=== PATIENT | male | born 1955 | race Two or more races ===

== ENCOUNTER 2025-05-21 10:28 | Emergency (ER) | payer SELFPAY ==
--- NOTE | ~2025-05-21 | XR_ITS ---
XR chest 2V Ordering provider: Baltazar Joseph MD History: 69 years Male with . CP . Comparison: None. FINDINGS: MEDIASTINUM: The cardiac silhouette is slightly enlarged. LUNGS: No infiltrates, effusions or pneumothorax. OTHER: No free air under the diaphragm. IMPRESSION: No acute cardiopulmonary pathology. Reviewed, dictated and finalized at location A.
[2025-05-21 10:28] VITALS: BP 149/58; PULSE 70; RESP 18; TEMP 36.6; O2SAT 97
--- NOTE | 2025-05-21 10:33 | ECG_ITS ---
Test Date: 2025-05-21 10:32:19 Measurements Intervals [place] Rate: 68 P: -9 LA: 162 QRS: 24 QRSD: 157 T: 42 QT: 443 QTc: 474 Interpretive Statements SINUS RHYTHM RIGHT BUNDLE BRANCH BLOCK BASELINE ARTIFACT- III, ABNORMAL ECG No previous ECG available for comparison Electronically Signed On 05-21-2025 12:34:37 CDT by Yoni Fang D.O.
[2025-05-21 10:34] VITALS: PULSE 69
[2025-05-21 10:50] LABS: Basophils Percent Auto 0.6 % (0.2-1.2); Eosinophils Absolute Auto 0.2 K/mm3 (0-0.3); Eosinophils Percent Auto 3.2 % (0-4.4); Hematocrit 27.6 % (42.0-52.0); Hemoglobin 8.9 g/dL (14.0-18.0); Immature Granulocyte Absolute 0.04 K/mm3 (0.00-0.031); Immature Granulocyte Percent A 0.6 % (0-0.5); Lymphocytes Absolute Auto 0.61 K/mm3 (0.9-3.2); Lymphocytes Percent Auto 8.4 % (18.3-44.2); Mean Corpuscular HGB Conc 32.2 g/dl (32-36); Mean Corpuscular Volume 96.2 fl (80-100); Mean Platelet Volume 10.5 fl (7.4-10.4); Monocytes Absolute Auto 0.5 K/mm3 (0.1-0.6); Monocytes Percent Auto 6.6 % (2.6-8.5); Neutrophils Absolute Auto 5.9 K/mm3 (1.3-6.7); Neutrophils Percent Auto 80.6 % (45.5-73.1); Platelet Count Result 275 k/mm3 (150-375); Red Blood Count 2.87 M/mm3 (4.6-6.20); Red Cell Distribution Width 14.6 % (11.5-14.5); White Blood Count 7.3 K/mm3 (4.5-10.0)
[2025-05-21 10:59] LABS: Alanine Aminotransferase 19 U/L (6-50); Albumin Level 4.1 g/dL (3.5-5.1); Alkaline Phosphatase 111 U/L (38-126); Anion Gap 13 mmol/L (4-12); Aspartate Amino Transferase 28 U/L (17-59); Bilirubin,Total 0.3 mg/dL (0.2-1.3); Blood Urea Nitrogen 35 mg/dL (9-20); Calcium 8.3 mg/dL (8.4-10.2); Carbon Dioxide 30 mmol/L (22-30); Chloride 94 mmol/L (98-107); Estimated CRCL calculation 13 ml/min; Estimated Glomerular Filt Rate 14; Glucose 200 mg/dL (65-110); Lipase 319 U/L (23-300); Potassium 4.1 mmol/L (3.4-5.0); Sodium 137 mmol/L (137-145); Total Protein 7.4 g/dL (6.3-8.2)
[2025-05-21 11:00] LABS: Prothrombin Time 12.9 Seconds (11.1-14.7)
[2025-05-21 11:11] LABS: Troponin I < 0.012 ng/mL (0.000-0.034)
[2025-05-21 11:51] VITALS: BP 153/62; PULSE 64; RESP 19; O2SAT 100
--- NOTE | 2025-05-21 12:29 | ED_ITS ---
HPI - General Adult General Chief complaint: Chest Pain Stated complaint: CP, ?anxiety Time Seen by Provider: 05/21/25 10:29 History of Present Illness HPI narrative: Patient is a 69-year-old male who presents ER with reports of sore throat and possible chest discomfort after having his dialysis treatment. Reports this happens to him on occasion but he has had no major issues. No history of DE. Related Data Allergies Allergy/AdvReac Type Severity Reaction Status Date / Time No Known Allergies Allergy Verified 05/21/25 10:35 Review of Systems 2 Review of Systems: All systems reviewed & are unremarkable except as noted in HPI and below Constitutional: Constitutional: Reports no additional constitutional complaints Cardiovascular: Cardiovascular: Reports no additional cardiovascular complaints Respiratory: Respiratory: Reports no additional respiratory complaints Gastrointestinal: Gastrointestinal: Reports no additional gastrointestinal complaints [facility] Past Medical History Medical History (Updated 05/21/25 @ 15:11 by Baltazar Joseph MD) Diabetes Hyperlipidemia Hypertension End stage renal disease Exam 2 Narrative: GENERAL: Chronically ill-appearing, well-nourished, and in no acute distress. HEAD: Normocephalic, atraumatic. ENT: Mucous membranes moist. NECK: Supple. CHEST: Clear to auscultation. No respiratory distress. HEART: Regular rate and rhythm. Normal peripheral pulses. ABDOMEN: Soft, nontender, nondistended. EXTREMITIES: Normal range of motion. SKIN: Warm, dry, no rash. NEURO: Alert and oriented x3. PSYCH: Normal mood and affect. Course Course Emergency Course: Patient resting comfortably. No chest pain here. [place] that have had an anxiety attack which happens with him on occasion. Appropriate discharge back to his facility. Vital Signs Vital signs: Vital Signs Temperature 97.8 F 05/21/25 10:28 Pulse Rate 70 05/21/25 10:28 Respiratory Rate 18 05/21/25 10:28 Blood Pressure 149/58 H 05/21/25 10:28 Pulse Oximetry 97 05/21/25 10:28 Oxygen Delivery Room Air 05/21/25 10:28 Temperature 97.8 F 05/21/25 10:28 Pulse Rate 66 05/21/25 14:12 Respiratory Rate 16 05/21/25 14:12 Blood Pressure 167/62 H 05/21/25 14:12 Pulse Oximetry 97 05/21/25 14:12 Oxygen Delivery Room Air 05/21/25 10:28 Medical Decision Making Vital Signs Vital Signs: Vital Signs Temperature 97.8 F 05/21/25 10:28 Pulse Rate 70 05/21/25 10:28 Respiratory Rate 18 05/21/25 10:28 Blood Pressure 149/58 H 05/21/25 10:28 Pulse Oximetry 97 05/21/25 10:28 Oxygen Delivery Room Air 05/21/25 10:28 Temperature 97.8 F 05/21/25 10:28 Pulse Rate 66 05/21/25 14:12 Respiratory Rate 16 05/21/25 14:12 Blood Pressure 167/62 H 05/21/25 14:12 Pulse Oximetry 97 05/21/25 14:12 Oxygen Delivery Room Air 05/21/25 10:28 Lab Data 05/21/25 10:44 05/21/25 10:44 Labs: Lab Results 05/21/25 05/21/25 Range/Units 10:44 14:14 WBC 7.3 (4.5-10.0) K/mm3 RBC 2.87 L (4.6-6.20) M/mm3 Hgb 8.9 L (14.0-18.0) g/dL Hct 27.6 L (42.0-52.0) % MCV 96.2 (80-100) fl MCH 31.0 (26-34) pg MCHC 32.2 (32-36) g/dl RDW 14.6 H (11.5-14.5) % Plt Count 275 (150-375) k/mm3 MPV 10.5 H (7.4-10.4) fl Immature Gran % (Auto) 0.6 H (0-0.5) % Neut % (Auto) 80.6 H (45.5-73.1) % Lymph % (Auto) 8.4 L (18.3-44.2) % [place] % (Auto) 6.6 (2.6-8.5) % Eos % (Auto) 3.2 (0-4.4) % Baso % (Auto) 0.6 (0.2-1.2) % Lymph # (Auto) 0.61 L (0.9-3.2) K/mm3 [place] # (Auto) 0.5 (0.1-0.6) K/mm3 Eos # (Auto) 0.2 (0-0.3) K/mm3 Baso # (Auto) 0.0 (0.0-0.1) K/mm3 Abs Immat Gran (auto) 0.04 H (0.00-0.031) K/mm3 Absolute Neuts (auto) 5.9 (1.3-6.7) K/mm3 Absolute Nucleated RBC 0.000 (0.0-0.012) K/mm3 Nucleated RBC % 0.0 (0.0-0.2) % PT 12.9 (11.1-14.7) Seconds INR 1.0 APTT 25.0 (22.3-36.8) Seconds Sodium 137 (137-145) mmol/L Potassium 4.1 (3.4-5.0) mmol/L Chloride 94 L (98-107) mmol/L Carbon Dioxide 30 (22-30) mmol/L Anion Gap 13 H (4-12) mmol/L BUN 35 H (9-20) mg/dL Creatinine 4.30 H (0.7-1.3) mg/dL Estim Creat Clear Calc 13 ml/min Estimated GFR 14 L (59 - ) Glucose 200 H (65-110) mg/dL Calcium 8.3 L (8.4-10.2) mg/dL Total Bilirubin 0.3 (0.2-1.3) mg/dL AST 28 (17-59) U/L ALT 19 (6-50) U/L Alkaline Phosphatase 111 (38-126) U/L Troponin I < 0.012 0.014 (0.000-0.034) ng/mL Total Protein 7.4 (6.3-8.2) g/dL Albumin 4.1 (3.5-5.1) g/dL Lipase 319 H (23-300) U/L Imaging Data Radiologist's impression: ITS Impressions Chest X-Ray 05/21/25 10:59 IMPRESSION: No acute cardiopulmonary pathology. ECG Data EKG #1: ECG completion date: 05/21/25 ECG completion time: 10:32 EKG Interpretation: normal rate (68), sinus rhythm and RBBB Discharge Plan Discharge Clinical Impression: Anxiety Patient Disposition: Home Condition: Stable Instructions: Anxiety (ED) Additional Instructions: Please return to the emergency department if you develop severe and persistent chest pain, difficulty breathing, dizziness, leg swelling or if you are coughing up blood as these can be signs of a medical emergency. Please call your doctor for a follow up appointment to determine the need for further testing. Patient Language: Indian Follow-up/Referrals: Brianne,MD Pee [Primary Care Provider] - 1 Week
--- NOTE | 2025-05-21 13:49 | ECG_ITS ---
Test Date: 2025-05-21 13:56:17 Measurements Intervals [place] Rate: 65 P: 18 [place]: 215 QRS: 15 QRSD: 141 T: 42 QT: 445 QTc: 463 Interpretive Statements SINUS RHYTHM WITH FIRST DEGREE AV BLOCK RIGHT BUNDLE BRANCH BLOCK BASELINE ARTIFACT- I, II, AVR, ABNORMAL ECG Compared to ECG 05/21/2025 10:32:19 First degree AV block now present Electronically Signed On 05-21-2025 14:31:46 CDT by Yoni Fang D.O.
[2025-05-21 14:12] VITALS: BP 167/62; PULSE 66; RESP 16; O2SAT 97
[2025-05-21 14:40] LABS: Troponin I 0.014 ng/mL (0.000-0.034)
[2025-05-21 15:37] VITALS: BP 144/88; PULSE 68; RESP 16; O2SAT 99
== END 2025-05-21 15:39 ==
PROVIDERS: Emergency Provider Emergency Medicine; PCP Internal Medicine
DX: F41.9 Anxiety disorder, unspecified (principal); E11.22 Type 2 diabetes mellitus with diabetic chronic kidney disease; I12.0 Hypertensive chronic kidney disease with stage 5 chronic kidney disease or end stage renal disease; N18.6 End stage renal disease; Z99.2 Dependence on renal dialysis; I44.0 Atrioventricular block, first degree; I45.10 Unspecified right bundle-branch block
CPT/HCPCS: 36415; 71046; 80053; 83690; 84484; 85025; 85610; 85730; 93005; 99284

== ENCOUNTER 2025-08-18 07:36 | Emergency (ER) | payer SELFPAY ==
[2025-08-18] VITALS (8 sets, daily range): BP systolic 190–215; BP diastolic 75–76; PULSE 66–83; RESP 10–19; TEMP 36.4; O2SAT 96–100
--- NOTE | ~2025-08-18 | CT_ITS ---
CT HEAD NON-CONTRAST Clinical History: fall x yesterday evening, ams Comparison: None Technique: Unenhanced axial images skull base to vertex Coronal, sagittal reformats CT images acquired with automatic exposure control for dose reduction DLP: 605 mGy-cm Findings: Global atrophy. White matter changes typically chronic microvascular ischemic disease. Sulci, ventricles: Unremarkable. No intracerebral hemorrhage. No evidence acute territorial infarct. No mass effect, midline shift. Bony calvarium intact. Visualized paranasal sinuses: Clear. Mastoid air cells: Clear. IMPRESSION: 1. No acute intracranial findings. Reviewed, dictated and finalized at location R.
--- NOTE | ~2025-08-18 | XR_ITS ---
Examination: XR chest 1V Clinical History: AMS Comparison: 05/21/2025 Technique: Portable AP Findings: Heart size upper limit of normal. Lungs clear. Persistent small linear atelectasis and/or scarring right perihilar. No acute bony abnormality. IMPRESSION: 1. No acute cardiopulmonary findings given portable technique. Reviewed, dictated and finalized at location R.
--- NOTE | 2025-08-18 07:45 | ECG_ITS ---
Test Date: 2025-08-18 08:07:18 Measurements Intervals [place] Rate: 70 P: 55 NC: 209 QRS: 22 QRSD: 142 T: 27 QT: 455 QTc: 493 Interpretive Statements SINUS RHYTHM WITH FIRST-DEGREE AV BLOCK OCCASIONAL SUPRAVENTRICULAR PREMATURE COMPLEXES RIGHT BUNDLE BRANCH BLOCK [120+ ms QRS DURATION, UPRIGHT V1, 40+ ms S IN I/aVL/V4/V5/V6] Compared to ECG 05/21/2025 13:56:17 NO SIGNIFICANT CHANGES Electronically Signed On 08-18-2025 14:27:20 CDT by Shahid Pires M.D.
--- NOTE | 2025-08-18 07:58 | ED_ITS ---
HPI - General Adult General Chief complaint: Altered Mental Status Stated complaint: AMS Time Seen by Provider: 08/18/25 07:38 History of Present Illness HPI narrative: The patient is a 70-year-old male with history of dementia who presents ER with increased confusion. half-way reports he is typically oriented x3. He is currently oriented to self. Patient missed dialysis on 08/15/2025 for unknown reasons. Patient provides no history. He is in no distress and has no complaints. Related Data Allergies Allergy/AdvReac Type Severity Reaction Status Date / Time No Known Allergies Allergy Verified 05/21/25 10:35 Review of Systems 2 Review of Systems: ROS unobtainable: Yes unobtainable due to mental status PMFSH Past Medical History Medical History (Updated 08/18/25 @ 09:56 by Baltazar Joseph MD) Diabetes Hyperlipidemia Hypertension End stage renal disease Exam 2 Narrative: GENERAL: Well-appearing, well-nourished, and in no acute distress. HEAD: Normocephalic, atraumatic. ENT: Mucous membranes moist. CHEST: Clear to auscultation. No respiratory distress. HEART: Regular rate and rhythm. Normal peripheral pulses. ABDOMEN: Soft, nontender, nondistended. EXTREMITIES: Normal range of motion. No edema. SKIN: Warm, dry, no rash. NEURO: Alert and oriented x1. Course Course Emergency Course: No acute intracranial injury. Creatinine elevated due to lack of dialysis. No electrolyte abnormality. Patient given home metoprolol and hydralazine for hypertensive management. Vital Signs Vital signs: Vital Signs Temperature 97.5 F L 08/18/25 07:36 Pulse Rate 83 08/18/25 07:36 Respiratory Rate 10 L 08/18/25 07:36 Blood Pressure 215/75 H 08/18/25 07:36 Pulse Oximetry 96 08/18/25 07:36 Temperature 97.5 F L 08/18/25 07:36 Pulse Rate 68 08/18/25 08:00 Respiratory Rate 10 L 08/18/25 07:36 Blood Pressure 215/75 H 08/18/25 07:36 Pulse Oximetry 96 08/18/25 07:36 Oxygen Delivery Room Air 08/18/25 08:15 Medical Decision Making Vital Signs Vital Signs: Vital Signs Temperature 97.5 F L 08/18/25 07:36 Pulse Rate 83 08/18/25 07:36 Respiratory Rate 10 L 08/18/25 07:36 Blood Pressure 215/75 H 08/18/25 07:36 Pulse Oximetry 96 08/18/25 07:36 Temperature 97.5 F L 08/18/25 07:36 Pulse Rate 68 08/18/25 08:00 Respiratory Rate 10 L 08/18/25 07:36 Blood Pressure 215/75 H 08/18/25 07:36 Pulse Oximetry 96 08/18/25 07:36 Oxygen Delivery Room Air 08/18/25 08:15 Lab Data 08/18/25 08:19 08/18/25 08:19 Labs: Lab Results 08/18/25 08/18/25 Range/Units 08:18 08:19 WBC 7.9 (4.5-10.0) K/mm3 RBC 3.49 L (4.6-6.20) M/mm3 Hgb 10.4 L (14.0-18.0) g/dL Hct 33.3 L (42.0-52.0) % MCV 95.4 (80-100) fl MCH 29.8 (26-34) pg MCHC 31.2 L (32-36) g/dl RDW 14.8 H (11.5-14.5) % Plt Count 194 (150-375) k/mm3 MPV 11.6 H (7.4-10.4) fl Immature Gran % (Auto) 1.3 H (0-0.5) % Neut % (Auto) 77.4 H (45.5-73.1) % Lymph % (Auto) 13.3 L (18.3-44.2) % [place] % (Auto) 4.9 (2.6-8.5) % Eos % (Auto) 2.5 (0-4.4) % Baso % (Auto) 0.6 (0.2-1.2) % Lymph # (Auto) 1.05 (0.9-3.2) K/mm3 [place] # (Auto) 0.4 (0.1-0.6) K/mm3 Eos # (Auto) 0.2 (0-0.3) K/mm3 Baso # (Auto) 0.1 (0.0-0.1) K/mm3 Abs Immat Gran (auto) 0.10 H (0.00-0.031) K/mm3 Absolute Neuts (auto) 6.1 (1.3-6.7) K/mm3 Absolute Nucleated RBC 0.000 (0.0-0.012) K/mm3 Nucleated RBC % 0.0 (0.0-0.2) % % Immature Plt Fraction 6.6 (0.9-11.2) % PT 13.7 (11.1-14.7) Seconds INR 1.0 APTT 22.4 (22.3-36.8) Seconds Sodium 138 (137-145) mmol/L Potassium 4.1 (3.4-5.0) mmol/L Chloride 100 (98-107) mmol/L Carbon Dioxide 25 (22-30) mmol/L Anion Gap 13 H (4-12) mmol/L BUN 34 H (9-20) mg/dL Creatinine 10.71 H (0.7-1.3) mg/dL Estim Creat Clear Calc 5 ml/min Estimated GFR 5 L (59 - ) Glucose 87 (65-110) mg/dL POC Capillary Glucose 84 (65-105) mg/dl Calcium 9.3 (8.4-10.2) mg/dL Total Bilirubin 0.8 (0.2-1.3) mg/dL AST 21 (17-59) U/L ALT 11 (6-50) U/L Alkaline Phosphatase 109 (38-126) U/L Troponin I 0.023 (0.000-0.034) ng/mL Total Protein 7.8 (6.3-8.2) g/dL Albumin 4.4 (3.5-5.1) g/dL Discharge Plan Discharge Clinical Impression: Accident due to mechanical fall without injury, Chronic hypertension Patient Disposition: Home Condition: Stable Instructions: General Patient Instructions, Fall Prevention for Older Adults (ED) Additional Instructions: Return ER if you suffered a new injury, you have new chest pain or shortness of breath, you have additional concerns. Patient Language: Mongolian Follow-up/Referrals: Brianne,MD Pee [Primary Care Provider, Unknown] - 1 Week
--- OUTSIDE RECORDS SUMMARY | 2025-08-18 08:17 | XMS_ITS | Clinical Summary ---
Author Organization [facility] Address [address] [place] [address] Care Team Providers Care Felting Machine Operator Helper Name Role Phone Unknown, Notinfile Primary Care Provider Unavail able Allergies No known active allergies Medications amLODIPine (NORVASC) 10 mg tablet Take 1 tablet (10 mg total) by mouth as directed Monday, , Monday, Monday Active aspirin 81 mg enteric coated tablet Take 1 tablet (81 mg total) by mouth daily 05/25/20 13 Active cholecalciferol (VITAMIN D-3) 50,000 unit capsule Take 1 capsule (50,000 Units total) by mouth once a week Sundays 0 02/11/20 24 Active famotidine (PEPCID) 20 mg tablet Take 1 tablet (20 mg total) by mouth with lunch 0 02/04/20 24 Active gabapentin (NEURONTIN) 100 mg capsule Take 1 capsule (100 mg total) by mouth 3 (three) times a day 01/12/20 21 Active Baqsimi 3 mg/actuation spray,non-aerosol Administer 1 spray into one nostril as needed 0 01/02/20 24 Active LANTUS 100 unit/mL (3 mL) pen for injection Inject 20 Units under the skin 2 (two) times a day 0 01/22/20 24 Active levETIRAcetam (KEPPRA) 500 mg tablet Take 1 tablet (500 mg total) by mouth daily Active meclizine (ANTIVERT) 25 mg tablet Take 0.5 tablets (12.5 mg total) by mouth 2 (two) times a day 05/25/20 13 Active methIMAzole (TAPAZOLE) 5 mg tablet Take 1 tablet (5 mg total) by mouth daily 0 01/23/20 24 Active ondansetron ODT (ZOFRAN-ODT) 4 mg disintegrating tablet Take 1 tablet (4 mg total) by mouth every 4 (four) hours as needed for nausea 12/13/19 17 Active sevelamer (RENVELA) 800 mg tablet 1 tablet (800 mg total) 3 (three) times a day with meals 0 02/11/20 24 Active thiamine (VITAMIN B-1) 50 mg tablet Take 2 tablets (100 mg total) by mouth daily Active bisacodyL (DULCOLAX) 10 mg suppositoryIndicat ions:constipation Insert 1 suppository (10 mg total) into the rectum daily as needed for constipation Active busPIRone (BUSPAR) 5 mg tabletIndications: Generalized Anxiety Disorder Take 1 tablet (5 mg total) by mouth 3 (three) times a day Active fluticasone propionate (FLONASE) 50 mcg/actuation nasal spray Administer 1 spray into each nostril daily Active midodrine (PROAMATINE) 10 mg tablet Take 1 tablet (10 mg total) by mouth once Monday Active QUEtiapine (SEROquel) 25 mg tablet Take 1 tablet (25 mg total) by mouth 3 (three) times a day Active senna-docusate (PERICOLACE) 8.6-50 mg Take 2 tablets by mouth nightly Active vitamin B complex-vitamin C-folic acid (NEPHRO-FELIZ) 0.8 mg tabletIndications: Vitamin Deficiency Prevention Take 0.8 mg by mouth daily Active bismuth subsalicylate (PEPTO-BISMOL) suspension Take 30 mL by mouth every 12 (twelve) hours as needed for indigestion Active hydrocortisone 0.5 % cream Apply topically 2 (two) times a day Active levETIRAcetam (KEPPRA) 750 mg tablet Take 1 tablet (750 mg total) by mouth nightly Active ALPRAZolam (XANAX) 0.25 mg tablet Take 1 tablet (0.25 mg total) by mouth daily as needed for anxiety for up to 7 days 7 tablet 03/29/20 24 Active traMADoL (ULTRAM) 50 mg tablet Take 1 tablet (50 mg total) by mouth every 8 (eight) hours as needed for pain for up to 5 days 15 tablet 03/29/20 24 Active calcium acetate,phosphat bind, (PHOSLO) 667 mg capsule 12/25/19 25 Active FLUoxetine (PROzac) 20 mg capsule 03/28/20 25 Active hydrALAZINE (APRESOLINE) 25 mg tablet 02/22/20 25 Active insulin lispro (HumaLOG, ADMELOG) 100 unit/mL vial for injection Inject 5 Units under the skin Active metoprolol tartrate (LOPRESSOR) 25 mg immediate release tablet Take 1 tablet (25 mg total) by mouth every 12 (twelve) hours 07/01/20 13 Active tamsulosin (FLOMAX) 0.4 mg extended release capsule 02/22/20 25 Active Active Problems Problem Noted Date Diagnosed Date 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 Mcfadden for diabetic retinopathy and for possible surgery OD He has never had prior treatment. 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 He does not have any signs of neovascularization in either eye. Per his daughter, his right eye vision has been poor for several years and nothing improved after cataract surgery in the right eye. On OCT-angiography, there is significant vessel dropout in his central macula and OCT demonstrates outer retinal changes and loss as well. Accordingly, we discussed that surgery to remove the traction and epiretinal membrane may still not improve his vision, agreed to observation. Discussed importance of good BS/BP control. Recommend follow up with Dr Partida. Acute chest pain 03/27/2024 Seizures 03/27/2024 ESRD (end stage renal disease) on dialysis 03/27 Medical History Medical History Date Comments Hypertension Seizures (HCC) 03/27/2024 End stage renal disease Diabetes (HCC) Anxiety disorder Social History Tobacco Use Types Packs/Day Years Used Date Smoking Tobacco: Every Day Cigarettes Tobacco Cessation:Ready to Q uit: Not Asked; Counseling Given: Not Answered Personal Safety Answer Date Recorded Have you ever been in or are you currently in a harmful physical or emotional relationship or is someone making you feel afraid or unsafe? Denies 04/19/2024 Sex and Gender Information Value Date Recorded Sex Assigned at Not on file Legal Sex Male 10:37 AM CDT Gender Identity Not on file Sexual Orientation Not on file Obstetrics History Last Filed Vital Signs Vital Sign Reading Time Taken Comments Blood Pressure 145/72 04/19/2024 9:00 AM CDT Pulse 94 04/19/2024 9:00 AM CDT Temperature 36 C (96.8 F) 04/19/2024 8:00 AM CDT Respiratory Rate 16 04/19/2024 9:00 AM CDT Oxygen Saturation 93% 04/19/2024 9:00 AM CDT Inhaled Oxygen Concentration - - Weight 75.8 kg (167 lb) 04/19/2024 5:06 AM CDT Height 167.6 cm (5' 6) 03/27/2024 12:48 PM CDT Body Mass Index 26.95 03/27/2024 12:48 PM CDT Plan of Treatment Health Maintenance Due Date Last Done Comments Albumin Creatinine Ratio, Urine 1954 Colon Cancer Screening-Colonoscopy 1954 Depression Screening 1954 Hemoglobin A1C 1954 Foot Exam 1954 Lipid Panel 1954 DTaP/Tdap/Td Vaccine (1 - Tdap) 1965 Pneumococcal vaccine 65+ (1 of 2 - PCV) 1973 Zoster Vaccine (1 of 2) 2004 Well Visit 65+ 2019 Fall Risk Assessment 03/29/2025 03/29/2024 eGFR 04/19/2025 04/19/2024, 12/2023, 03/27/2024, Additional history exists Influenza Vaccine (#1) 2025 Dilated Eye Exam 02/27/2026 02/27/2025 Hepatitis B Screening Completed 03/27/2024 Hepatitis C Screening Completed 03/27/2024 Abdominal Aortic Aneurysm (A AA) Screen Completed 05/02/2024, 01/08/2021 Procedures Procedure Name Priority Date/Time Associated Diagnosis Comments EGFR STAT 04/19/2024 5:03 AM CDT HEPATITIS PANEL, ACUTE Routine 03/27/2024 2:57 PM CDT from Last 3 Months or Most Recently Relevant to Health Maintenance Results * (ABNORMAL) eGFR (04/19/2024 5:03 AM CDT) eGFR 8(L) >=60 mL/min/1. 73 m2 Comment: Interpretive Data Reference Interval Normal >/= 90 mL/min/1.73m2 Mildly decreased* 60 - 89 mL/min/1.73m2 Mildly to moderately decreased 45 - 59 mL/min/1.73m2 Moderately to severely decreased 30 - 44 mL/min/1.73m2 Severely decreased 15 - 29 mL/min/1.73m2 Kidney Failure < 15 mL/min/1.73m2 *Relative to young adult level Estimated glomerular filtration rate is determined by the 2020 CKD-EPI equation recommended by the National Kidney Foundation (A Unifying Approach to GFR Estimation: Recommendations of the NKF-ASK Task Force on Reassessing the Inclusion of Race in Diagnosing Kidney Disease, JASN 2020). The CKD-EPI equation should not be used for patients with unstable renal function and has not been validated in children and those over 70. Current interpretive data was last reviewed 2021. Blood 04/19/2024 5:03 AM CDT 04/19/2024 5:06 AM CDT us Merced Corrigan MD LAB BLOOD ORDERABLES Final Resul t ANA MORALES ([place]ANIKA) 1 [facility] Department [place] [address] * Hepatitis panel, acute Blood (03/27/2024 2:57 PM CDT) Hep A IgM Nonreactive Nonreactive Comment: Interpretive Data: If Hep A IgM Ab is reported as Equivocal, a new sample should be drawn in two weeks for testing. Current interpretive data was last revised on 20. Testing performed by: [facility], [address] [place] [address], [place]., [address] Hep B core IgM Nonreactive Nonreactive Rj MORALES (TANIKA) Comment: Interpretive Data If HepB Core IgM Ab is reported as Equivocal, a new sample should be drawn in two weeks for testing. Current interpretive data was last revised on 20. Testing performed by: [facility], [address] [place] [address], [place]., [address] Hep C Ab Nonreactive Nonreactive ANA MORALES (TANIKA) Comment: Interpretive Data Nonreactive: Antibodies to HCV not detected. Does NOT exclude the possibility of recent exposure to HCV. Equivocal: Equivocal for HCV antibodies. Supplemental molecular testing will be automatically performed to determine infection status in accordance with current CDC screening recommendations. Reactive: Positive for HCV antibodies. This may represent current or past HCV infection. Supplemental molecular testing will be automatically performed to determine current infection status in accordance with current CDC screening recommendations. Interpretive data was last revised on 2020. Testing performed by: [facility], [address] [place] [address]., [id number] HepBsAg Nonreactive Nonreactive ANA MORALES (TANIKA) Comment:Testing performed by : [facility], [address] [place] [address]., [id number] Blood 03/27/2024 2:57 PM CDT 03/27/2024 8:38 PM CDT Jimmy Keene MD LAB MICROBIOLOGY - [facility] AL ORDERABLES Final Result Performing Organization Address City/State/[facility] Co de Phone Number ANA MORALES (TANIKA) 1 [facility] Department [place] [address] from Last 3 Months or Most Recently Relevant to Health Maintenance Insurance [place] [address] [facility] Advance Directives For more information, please contact: [phone] * Full Code (Latest Code Status on File) Date Activated Date Inactivated Comments 03/27/2024 11:39 AM 03/30/2024 12:24 AM Care Teams Felting Machine Operator Helper Relationship Specialty Start Date End Date Unknown, Notinfile PCP - General 03/05/24
--- OUTSIDE RECORDS SUMMARY | 2025-08-18 08:17 | XMS_ITS ---
Author Organization [facility] Address [address] [place] [address] Care Team Providers Care Education Professor Name Role Phone Unknown, Notinfile Primary Care Provider Unavail able Dialysis Access Sites Type Status Location Placement Date Removal Da te AV fistula Active Right Forearm - Anterior Procedures Procedure Name Priority Date/Time Associated Diagnosis Comments EGFR STAT 04/19/2024 5:03 AM CDT HEPATITIS PANEL, ACUTE Routine 03/27/2024 2:57 PM CDT from Last 3 Months or Most Recently Relevant to Health Maintenance Allergies No known active allergies Medications amLODIPine [...] 25 Active FLUoxetine (PROzac) 20 mg capsule 02/22/20 25 Active hydrALAZINE (APRESOLINE) 25 mg tablet [...] (end stage renal disease) on dialysis 03/27 Social History Tobacco Use Types Packs/Day Years [...] on file Sexual Orientation Not on file Last Filed Vital Signs Vital Sign Reading [...] Mass Index 26.95 03/27/2024 12:48 PM CDT Results * (ABNORMAL) eGFR (04/19/2024 5:03 AM [...] 5:03 AM CDT 04/19/2024 5:06 AM CDT Merced Corrigan MD LAB BLOOD ORDERABLES Final Resul t ANA MORALES ([place]) 1 [facility] Department [place] [address] * Hepatitis panel, acute Blood (03/27/2024 2:57 PM CDT) Hep A IgM Nonreactive Nonreactive Comment: Interpretive Data: If Hep A IgM Ab is reported as Equivocal, a new sample should be drawn in two weeks for testing. Current interpretive data was last revised on 20. Testing performed by: [address] [address] Hep B core IgM Nonreactive Nonreactive Rj MORALES (TANIKA) Comment: Interpretive Data If HepB Core IgM Ab is reported as Equivocal, a new sample should be drawn in two weeks for testing. Current interpretive data was last revised on 20. Testing performed by: [address] [address] Hep C Ab Nonreactive Nonreactive ANA MORALES [...] last revised on 2020. Testing performed by: [address] [address] HepBsAg Nonreactive Nonreactive ANA MORALES (TANIKA) Comment:Testing performed by : [address] [address] Blood 03/27/2024 2:57 PM CDT 03/27/2024 8:38 PM CDT us Jimmy Keene MD LAB MICROBIOLOGY - GENER AL ORDERABLES Final Result Performing Organization Address City/[facility]/ZIP Co de Phone Number ANA MORALES (TANIKA) 1 [facility] Department [place] [address] from Last 3 Months or Most Recently Relevant to Health Maintenance
--- OUTSIDE RECORDS SUMMARY | 2025-08-18 08:17 | XMS_ITS | Encounter Summary ---
Author Organization [facility] Address [facility] [place] [address] Care Team Providers Care Assurance Senior Manager Insurance Name Role Phone Pee Decker MD Primary Care Provider Encounter Details Date Type Department Care Team (Late st Contact Info) Description 03/07/2024 Lab Requisition [facility] [address] [place] [address] Glynn Narvaez MD [address] [place] [id number] Social History Tobacco Use Types Packs/Day Years Used Date Smoking Tobacco: Never Assessed Sex and Gender Information Value Date Recorded Sex Assigned at Not on file Legal Sex Male 2:57 PM CDT Gender Identity Not on file Sexual Orientation Not on file documented as of this encounter Plan of Treatment Upcoming Encounters Date Type Department Care Team (Late st Contact Info) Description 01/01/2026 1:00 PM [employer] Office Visit [facility] - Neurology [address] [place] [address], [facility] [place] [phone] Claudio Chery MD [address] [place] [phone] documented as of this encounter Procedures Procedure Name Priority Date/Time Associated Diagnosis Comments CBC W AUTO DIFFERENTIAL STAT 03/07/2024 12:50 PM CDT B-TYPE NATRIURETIC PEPTIDE STAT 03/07/2024 12:50 PM CDT COMPREHENSIVE METABOLIC PANEL STAT 03/07/2024 12:50 PM CDT documented in this encounter Results * (ABNORMAL) B-TYPE NATRIURETIC PEPTIDE (03/07/2024 12:50 PM CDT) Pathologist [facility] BNP 167(H) <=100 pg/mL 03/07/2024 3:33 PM CDT [facility] Blood BLOOD SPECIMEN / Unknown Venipuncture / Unknown 03/07/2024 12:50 PM CDT 03/07/2024 3:00 PM CDT [facility] - 03/07/2024 3:33 PM CDT A cutoff of 100 pg/mL has been demonstrated to provide the maximal combination of sensitivity, specificity, and negative predictive value for contributing to the diagnosis of congestive heart failure (CHF) only. A B-Type Natriuretic Peptide (BNP) value greater than or equal to 100 pg/mL is consistent with a diagnosis of CHF in the appropriate clinical setting. False positive results are more common in females greater than 75 years of age. Blood concentrations of natriuretic peptides may also be elevated in patients with myocardial infarction and in patients who are candidates for or are undergoing renal dialysis. Glynn Narvaez MD LAB - CHEMISTRY ORDERABLES Shayla rodriguez Result [facility] [address] [place] [address] * (ABNORMAL) COMPREHENSIVE METABOLIC PANEL (03/07/2024 12:50 PM CDT) Pathologist [facility] Glucose 188(H) 70 - 105 mg/dL 03/07/2024 3:28 PM CDT [facility] Sodium 139 136 - 145 mmol/L 03/07/2024 3:28 PM CDT [facility] Potassium 4.4 3.5 - 5.1 mmol/L 03/07/2024 3:28 PM CDT [facility] Chloride 100 98 - 107 mmol/L 03/07/2024 3:28 PM CDT [facility] CO2 28 22 - 29 mmol/L 03/07/2024 3:28 PM CDT [facility] Calcium 8.1(L) 8.4 - 10.4 mg/dL 03/07/2024 3:28 PM CDT [facility] Anion Gap 11 6 - 16 mmol/L 03/07/2024 3:28 PM CDT [facility] BUN 79(H) 7 - 26 mg/dL 03/07/2024 3:28 PM CDT [facility] Creatinine 6.77(H) 0.72 - 1.25 mg/dL 03/07/2024 3:28 PM CDT [facility] Alkaline Phosphatase 108 40 - 150 U/L 03/07/2024 3:28 PM CDT [facility] ALT 11 0 - 55 U/L 03/07/2024 3:28 PM CDT [facility] AST 12 5 - 34 U/L 03/07/2024 3:28 PM CDT [facility] Protein Total 6.6 6.4 - 8.3 gm/dL 03/07/2024 3:28 PM CDT [facility] Albumin 3.5 3.4 - 5.0 gm/dL 03/07/2024 3:28 PM CDT [facility] Bilirubin Total 0.5 0.2 - 1.2 mg/dL 03/07/2024 3:28 PM CDT [facility] eGFR by CKD-EPI 8(L) >=90 mL/min/1.7 3 m2 03/07/2024 3:28 PM CDT [facility] Blood BLOOD SPECIMEN / Unknown Venipuncture / Unknown 03/07/2024 12:50 PM CDT 03/07/2024 3:00 PM CDT Glynn Narvaez MD LAB - CHEMISTRY ORDERABLES Shayla l Result [facility] [address] [place], [place] [phone] * (ABNORMAL) CBC WITH DIFFERENTIAL (03/07/2024 12:50 PM CDT) [facility] Signature WBC 12.2(H) 4.0 - 10.7 x10E9/L 03/07/2024 3:09 PM CDT [facility] RBC Count 3.61(L) 4.30 - 5.80 x10E12/L 03/07/2024 3:09 PM CDT [facility] Hemoglobin 10.9(L) 13.3 - 17.5 g/dL 03/07/2024 3:09 PM [facility] Hematocrit 34.5(L) 38.7 - 51.1 % 03/07/2024 3:09 PM [facility] MCV 95.6 80.0 - 98.0 fL 03/07/2024 3:09 PM [facility] MCH 30.2 26.7 - 33.6 pg 03/07/2024 3:09 PM [facility] MCHC 31.6(L) 31.7 - 36.3 g/dL 03/07/2024 3:09 PM [facility] RDW-CV 14.1 11.3 - 14.8 % 03/07/2024 3:09 PM [facility] Platelet Count 167 150 - 420 x10E9/L 03/07/2024 3:09 PM [facility] MPV 10.7 7.8 - 11.4 fL 03/07/2024 3:09 PM [facility] Neutrophil % 81.2(H) 41.0 - 74.0 % 03/07/2024 3:09 PM [facility] Lymphocyte % 7.9(L) 17.0 - 47.0 % 03/07/2024 3:09 PM [facility] Monocyte % 7.0 3.0 - 11.0 % 03/07/2024 3:09 PM [facility] Eosinophil % 2.9 0.0 - 7.0 % 03/07/2024 3:09 PM [facility] Basophil % 0.3 0.0 - 1.6 % 03/07/2024 3:09 PM [facility] Immature Granulocytes % 0.7 0.0 - 1.0 % 03/07/2024 3:09 PM [facility] Neutrophil Absolute 9.93(H) 1.60 - 7.50 x10E9/L 03/07/2024 3:09 PM [facility] Lymphocyte Absolute 0.97(L) 1.00 - 4.40 x10E9/L 03/07/2024 3:09 PM [facility] Monocyte Absolute 0.85 0.15 - 1.00 x10E9/L 03/07/2024 3:09 PM CDT [facility] Eosinophil Absolute 0.35 0.00 - 0.60 x10E9/L 03/07/2024 3:09 PM CDT [facility] Basophil Absolute 0.04 0.00 - 0.13 x10E9/L 03/07/2024 3:09 PM CDT [facility] Blood BLOOD SPECIMEN / Unknown Venipuncture / Unknown 03/07/2024 12:50 PM CDT 03/07/2024 3:00 PM CDT us Glynn Narvaez MD LAB - HEMATOLOGY ORDERABLES Fin al Result Performing Organization Address City/State/[facility] Co de Phone Number [facility] [address] [place], [place] [phone] documented in this encounter Visit Diagnoses Not on filedocumented in this encounter Care Teams Assurance Senior Manager Insurance Relationship Specialty Start Date End Date Pee Decker MD [address] [place] [phone] PCP - General Internal Medicine 07/09/25 documented as of this encounter
--- OUTSIDE RECORDS SUMMARY | 2025-08-18 08:17 | XMS_ITS | Clinical Summary ---
Author Organization [facility] Address [address] [place] [address] Care Team Providers Care Money Manager Name Role Phone Pee Decker MD Primary Care Provider + [phone] Source Comments [facility],non-owned Affiliates and Associated Physician Practices is amultiple site organization consisting of ambulatory clinics and hospital sitesin [place], [place], [place] and [place]. This disclosure is being madepursuant to the Care Everywhere program and may not contain all information available regarding this patient. Last updated 18.[employer] [facility] Allergies No known active allergies Medications * Be aware that medications may not be up to date on this document. Alwaysverify current medications with the patient. melatonin 5 MG tablet Take 1 (one) tablet by mouth at bedtime Active metoprolol tartrate IR (Lopressor) 25 MG tablet Take 0.5 (one-half) tablet by mouth 2 times daily Active hydrALAZINE (Apresoline) 25 MG tablet Take 1 (one) tablet by mouth 3 times daily Active QUEtiapine (SEROquel) 25 MG tablet Take 1 (one) tablet by mouth 2 times daily Active calcium acetate (Phoslo) 667 MG capsule Take 2 (two) capsules by mouth 3 times daily before meals Active loratadine (Claritin) 10 MG tablet Take 1 (one) tablet by mouth once daily Active tamsulosin (Flomax) 0.4 MG capsule Take 1 (one) capsule by mouth once daily At the same time every day after a meal. Active FLUoxetine (PROzac) 20 MG capsule Take 1 (one) capsule by mouth once daily Active prochlorperazi ne (Compazine) 10 MG tablet Take 1 (one) tablet by mouth every 4 hours as needed for Nausea/Vomiting Active loperamide (Imodium) 2 MG capsule Take 1 (one) capsule by mouth 2 times daily as needed for Diarrhea Active ondansetron (Zofran) 4 MG tablet Take 1 (one) tablet by mouth every 6 hours as needed for Nausea/Vomiting Active busPIRone (Buspar) 10 MG tablet Take 1 (one) tablet by mouth 3 times daily Active insulin lispro (HumaLOG;ADMel og) 100 UNIT/ML pen Inject subcutaneously 3 times daily before meals Sliding scale Active acetaminophen (Tylenol) 325 MG tablet 2 (two) tablets by Enteral Tube route every 6 hours as needed Maximum allowable Acetaminophen amount = 4 Grams (4000 mg) / 24 hours. 5 Active hydrALAZINE (Apresoline) 20 MG/ML injection 0.5 mL by Intravenous route every 6 hours as needed 5 Active artificial tears ophthalmic solution Instill 1 (one) drop into both eyes 3 times daily as needed 5 Active renal vitamin (Dialyvite) tablet 1 (one) tablet by Enteral Tube route once daily 5 Active calcitriol (Calcitrol) 1 MCG/ML oral solution 0.25 mL by Enteral Tube route every Monday, Monday & Monday 5 Active epoetin sonya-EPBX (Retacrit) 4000 UNIT/ML injection 1 mL by Intravenous route Give in dialysis on Monday, & Monday 5 Active levETIRAcetam (Keppra) 500 MG tablet Take 1 (one) tablet by mouth once daily 5 Active levETIRAcetam (Keppra) 500 MG tabletIndicati ons:Addiontnal dose every Monday, Monday and Monday after dialysis Take 1 (one) tablet by mouth every Monday, Monday & Monday Reasons: Addiontnal dose every Monday, Monday and Monday after dialysis 5 Active Active Problems Problem Noted Date Diagnosed Date Severe vascular dementia 05/02/2025 Assessment & Plan (05/04/2025 1:45 PM CDT): Baseline reportedly alert to person, simple conversations. Currently appears to be at baseline. Infectious workup per neurology including LP negative for acute infectious or inflammatory etiologies -AMS likely 2/2 to seizures(post ictal) - continue with levetiracetam 500 mg daily and additional 500 mg post dialysis - seizure precautions - follow up neurology recs - delirium precautions, low stim bundle - melatonin at bedtime Assessment & Plan (05/03/2025 4:34 PM CDT): Baseline reportedly alert to person, simple conversations. Currently appears to be at baseline. Infectious workup per neurology including LP negative for acute infectious or inflammatory etiologies - continue with levetiracetam 500 mg daily and additional 500 mg post dialysis - seizure precautions - follow up neurology recs - delirium precautions, low stim bundle - melatonin at bedtime Assessment & Plan (05/02/2025 3:06 PM CDT): Baseline reportedly alert to person, simple conversations. Currently appears to be at baseline. Infectious workup per neurology including LP negative for acute infectious or inflammatory etiologies - continue with levetiracetam 500 mg daily and additional 500 mg post dialysis - seizure precautions - follow up neurology recs - delirium precautions, low stim bundle - melatonin at bedtime Oropharyngeal dysphagia 05/02/2025 Assessment & Plan (05/04/2025 1:45 PM CDT): In the setting of dementia and recent self extubation - continue with GEOSPATIAL INFORMATION SCIENTIST therapy -advanced diet to modified consistency and thin liquid -Monitor fro signs of aspiration - nutrition consult Assessment & Plan (05/03/2025 4:34 PM CDT): In the setting of dementia and recent self extubation - continue with GEOSPATIAL INFORMATION SCIENTIST therapy -advanced diet to modified consistency and thin liquid -Monitor fro signs of aspiration - nutrition consult Assessment & Plan (05/02/2025 3:06 PM CDT): In the setting of dementia and recent self extubation - continue with GEOSPATIAL INFORMATION SCIENTIST therapy - NPO for now due to aspiration risk, plan to place NG tube and start TF - nutrition consult for tube feed recs Type 2 diabetes mellitus wit h hypoglycemia, with long-term current use of insulin 05/02/2025 Assessment & Plan (05/04/2025 1:45 PM CDT): - continue on SSI due to inconsistent intake and NPO status due to dysphagia - hypoglycemia protocol Assessment & Plan (05/03/2025 4:34 PM CDT): - continue on SSI due to inconsistent intake and NPO status due to dysphagia - hypoglycemia protocol Assessment & Plan (05/02/2025 3:06 PM CDT): - continue on SSI due to inconsistent intake and NPO status due to dysphagia - hypoglycemia protocol Primary hypertension 05/02/2025 Assessment & Plan (05/04/2025 1:45 PM CDT): - hydralazine 25 mg TID - metoprolol 12.5 mg BID Assessment & Plan (05/03/2025 4:34 PM CDT): - hydralazine 25 mg TID - metoprolol 12.5 mg BID Assessment & Plan (05/02/2025 3:06 PM CDT): - hydralazine 25 mg TID - metoprolol 12.5 mg BID Anemia of chronic disease 05/02/2025 Assessment & Plan (05/04/2025 1:45 PM CDT): On HD MWF - continue with mantainance HD per nephrology - calcitriol 0.25 mcg MWF - epo with HD MWF - renal vitamins - monitor phos, consider phos binder if remains elevated Assessment & Plan (05/03/2025 4:34 PM CDT): On HD MWF - continue with mantainance HD per nephrology - calcitriol 0.25 mcg MWF - epo with HD MWF - renal vitamins - monitor phos, consider phos binder if remains elevated Assessment & Plan (05/02/2025 3:06 PM CDT): On HD MWF - continue with mantainance HD per nephrology - calcitriol 0.25 mcg MWF - epo with HD MWF - renal vitamins - monitor phos, consider phos binder if remains elevated Seizure disorder 04/27/2025 Assessment & Plan (05/04/2025 1:45 PM CDT): Baseline reportedly alert to person, simple conversations. Currently appears to be at baseline. Infectious workup per neurology including LP negative for acute infectious or inflammatory etiologies -AMS likely 2/2 to seizures(post ictal) - continue with levetiracetam 500 mg daily and additional 500 mg post dialysis - seizure precautions - follow up neurology recs - delirium precautions, low stim bundle - melatonin at bedtime Assessment & Plan (05/03/2025 4:34 PM CDT): Baseline reportedly alert to person, simple conversations. Currently appears to be at baseline. Infectious workup per neurology including LP negative for acute infectious or inflammatory etiologies - continue with levetiracetam 500 mg daily and additional 500 mg post dialysis - seizure precautions - follow up neurology recs - delirium precautions, low stim bundle - melatonin at bedtime Assessment & Plan (05/02/2025 3:06 PM CDT): Baseline reportedly alert to person, simple conversations. Currently appears to be at baseline. Infectious workup per neurology including LP negative for acute infectious or inflammatory etiologies - continue with levetiracetam 500 mg daily and additional 500 mg post dialysis - seizure precautions - follow up neurology recs - delirium precautions, low stim bundle - melatonin at bedtime Seizures 04/27/2025 ESRD (end stage renal disease) 04/26/2025 Assessment & Plan (05/04/2025 1:45 PM CDT): On HD MWF - continue with mantainance HD per nephrology - calcitriol 0.25 mcg MWF - epo with HD MWF - renal vitamins - monitor phos, consider phos binder if remains elevated Assessment & Plan (05/03/2025 4:34 PM CDT): On HD MWF - continue with mantainance HD per nephrology - calcitriol 0.25 mcg MWF - epo with HD MWF - renal vitamins - monitor phos, consider phos binder if remains elevated Assessment & Plan (05/02/2025 3:06 PM CDT): On HD MWF - continue with mantainance HD per nephrology - calcitriol 0.25 mcg MWF - epo with HD MWF - renal vitamins - monitor phos, consider phos binder if remains elevated Resolved Problems Problem Noted Date Diagnosed Date Resolved Date Uremia 04/27/2025 05/02/2025 Acute respiratory failure 04/27/2025 Shock 04/27/2025 05/02/2025 Altered mental status, unspe cified altered mental status type 04/26/2025 05/02/2025 Assessment & Plan (05/02/2025 3:06 PM CDT): Baseline reportedly alert to person, simple conversations. Currently appears to be at baseline. Infectious workup per neurology including LP negative for acute infectious or inflammatory etiologies - continue with levetiracetam 500 mg daily and additional 500 mg post dialysis - seizure precautions - follow up neurology recs - delirium precautions, low stim bundle - melatonin at bedtime Cerebrovascular accident (CV A), unspecified mechanism 04/26/2025 04/28/2025 Encounters Date Type Department Care Team Description 07/07/2025 9:14 AM CDT - 07/07/2025 6:47 PM CDT Emergency [facility] EMERGENCY DEPARTMENT [address] [place] [phone] Marco Narvaez MD Byrne, Laurie E, MD Agitation (Primary Dx); Altered mental status, unspecified altered mental status type; ESRD (end stage renal disease) ([facility]) Discharge Disposition: [facility] from Last 3 Months Social History Tobacco Use Types Packs/Day Years Used Date Smoking Tobacco: Never Assessed AUDIT-C Answer Date Recorded Q1: How often do you have a drink containing alc ohol? Monthly or less 04/27/2025 Q2: How many drinks containi ng alcohol do you have on a typical day when you are drinking? 1 or 2 04/27/2025 Q3: How often do you have si x or more drinks on one occasion? Less than monthly 04/27/2025 Overall Financial Resource Strain (CARDIA) Answe r Date Recorded How hard is it for you to pa y for the very basics like food, housing, medical care, and heating? Not hard at all 04/28/2025 [facility] Occupat ional Health - Occupational Stress Questionnaire Answer Date Recorded Do you feel stress - tense, restless, nervous, or anxious, or unable to sleep at night because your mind is troubled all the time - these days? Patient unable to answer 04/28/2025 Hunger Vital Sign Answer Date Recorded Within the past 12 months, y ou worried that your food would run out before you got the money to buy more. Never true 04/28/20 25 Within the past 12 months, t he food you bought just didn't last and you didn't have money to get more. Never true 04/28/2025 PRAPARE - Transportation Answer Date Re corded In the past 12 months, has l ack of transportation kept you from medical appointments or from getting medications? No 12/2024 In the past 12 months, has l ack of transportation kept you from meetings, work, or from getting things needed for daily living? No 04/28/2025 Housing Stability Vital Sign Answer Jon e Recorded In the last 12 months, was t here a time when you were not able to pay the mortgage or rent on time? No 04/28/2025 Number of Times Moved in the Last Year Not on fi le 04/28/2025 At any time in the past 12 m [facility], were you homeless or living in a fci (including now)? No 04/28/2025 Sex and Gender Information Value Date Recorded Sex Assigned at Not on file Legal Sex Male 2:57 PM CDT Gender Identity Not on file Sexual Orientation Not on file Last Filed Vital Signs Vital Sign Reading Time Taken Comments Blood Pressure 191/83 07/07/2025 6:15 PM CDT Pulse 76 07/07/2025 6:15 PM CDT Temperature 36.6 C (97.9 F) 07/07/2025 9:22 AM CDT Respiratory Rate 16 07/07/2025 6:15 PM CDT Oxygen Saturation 98% 07/07/2025 6:15 PM CDT Inhaled Oxygen Concentration 40% 05/01/2025 8 :19 PM CDT Weight 63.7 kg (140 lb 6.9 oz) 05/05/2025 4:33 P M CDT Height 170.2 cm (5' 7) 04/27/2025 1:20 PM CDT Body Mass Index 21.99 04/27/2025 1:20 PM CDT Plan of Treatment Upcoming Encounters Date Type Department Care Team (Late st Contact Info) Description 01/01/2026 1:00 PM [employer]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 Office Visit [facility] - Neurology [address] [place] [address], [place] [address] Claudio Chery MD [address] [place] [phone] Health Maintenance Due Date Last Done Comments COLOGUARD (AGES 45-75) - COLON CA SCREENING 1954 COLON MONITORING 1954 COLONOSCOPY - COLON CA SCREENING 1954 CT COLONOGRAPHY - COLON CA SCREENING 1954 Colorectal Cancer Screening 1954 FIT - COLON CA SCREENING 1954 FLEX SIG - COLON CA SCREENING 1954 DTAP/TDAP/TD VACCINES (1 - Tdap) 1973 PNEUMOCOCCAL VACCINE 50+ (1 of 2 - PCV) 1973 HEPATITIS B VACCINE (1 of 3 - Risk Dialysis 4-dose series) 1974 DIABETES-STATIN 1994 ZOSTER VACCINE (1 of 2) 2004 Respiratory Syncytial Virus (RSV) Vaccine Pt: or over 60 yrs (1 - Risk 60-74 years 1-dose series) 2014 DEPRESSION SCREENING 11/27/2024 DIABETES RETINOPATHY SCREENING 05/02/2025 DIABETES-FOOT EXAM WITH MONOFILAMENT 05/02/2025 DIABETES-HGB A1C 07/27/2025 04/26/2025, 04/19/2024 COVID-19 VACCINE (2024- season) 2025 10/10/2023, 09/01/2022, 04/21/2022, Additional history exists INFLUENZA VACCINE (#1) 2025 HEPATITIS C SCREENING Completed 04/29/2024 , 04/24/2024, 04/20/2024, Additional history exists HIB VACCINE Aged Out No longer eligi ble based on patient's age to complete this topic HPV VACCINE Aged Out No longer eligi ble based on patient's age to complete this topic MENINGOCOCCAL (Group B) VACCINE SHARED DECISION-MAKING Aged Out No longer eligible based on patient's age to complete this topic MENINGOCOCCAL GROUPS A/C/Y/W VACCINE Aged Out No longer eligible based on patient's age to complete this topic Procedures Procedure Name Priority Date/Time Associated Diagnosis Comments CARDIAC EKG ORDER 07/08/2025 12: [address] HEAD WO CONTRAST STAT 07/07/2025 1 :29 PM CDT Altered mental status, unspecified altered mental status type EKG 12-LEAD STAT 07/07/2025 12:24 PM CDT Altered mental status, unspecified altered mental status type LACTIC ACID BLOOD REFLEX TO REPEAT Timed STAT 07/07/2025 12:17 PM CDT TROPONIN-I HIGH SENSITIVE REFLEX 1HOUR Timed 07/07/2025 12:17 PM CDT XR CHEST 1VW PORTABLE STAT 07/07/2025 10:38 AM CDT Altered mental status, unspecified altered mental status type URINALYSIS REFLEX MICROSCOPIC REFLEX CULTURE STAT 07/07/2025 10:19 AM CDT CBC W AUTO DIFFERENTIAL STAT 07/07/2025 10:17 AM CDT CULTURE BLOOD STAT 07/07/2025 9:54 AM CDT LEVETIRACETAM LEVEL STAT 07/07/2025 9 :52 AM CDT B-TYPE NATRIURETIC PEPTIDE STAT 07/07/2025 9:52 AM CDT PT-INR STAT 07/07/2025 9:52 AM CDT LACTIC ACID BLOOD REFLEX TO REPEAT STAT 07/07/2025 9:52 AM CDT TSH REFLEX FREE T4 STAT 07/07/2025 9: 43 AM CDT TROPONIN-I HIGH SENSITIVE BASELINE + 1HR STAT 07/07/2025 9:43 AM CDT MAGNESIUM BLOOD STAT 07/07/2025 9:43 AM CDT LIPASE BLOOD STAT 07/07/2025 9:43 AM CDT COMPREHENSIVE METABOLIC PANEL STAT 07/07/2025 9:43 AM CDT HEMOGLOBIN A1C SIMA 04/26/2025 7:59 AM CDT Altered mental status, unspecified altered mental status type from Last 3 Months or Most Recently Relevant to Health Maintenance Results * CARDIAC EKG ORDER (07/08/2025 12:22 PM CDT) Narrative 07/08/2025 12:22 PM CDT Ordered by an unspecified provider. us Scanned Document CARDIAC SERVICES ORDERABLES Fin al Result * CT HEAD WO CONTRAST (07/07/2025 1:29 PM CDT) Anatomical Region Laterality Modality Head Computed Tomogra phy 07/07/2025 1:35 PM CDT Impressions 07/07/2025 2:04 PM CDT IMPRESSION: 1. No acute intracranial hemorrhage, territorial infarct or herniation. Please note that CT is insensitive to small infarcts, particularly in the posterior fossa. For this reason, MRI is recommended if clinical suspicion for infarct remains high. > Dictated by Domingo Lugo M.D. radiology teacher > Dictated by Field Operations Supervisor I, Lora Driver MD have personally reviewed and interpreted this examination/study. > Interpreting Provider: Lora Driver MD on 07/07/2025 2:04 PM Narrative 07/07/2025 2:04 PM CDT PROCEDURE: CT HEAD WO CONTRAST, DATE/TIME OF EXAM: 07/07/2025 1:30 PM, LOCATION [facility] INDICATION: R41.82: Altered mental status, unspecified altered mental status type ADDITIONAL CLINICAL INFORMATION: Ordering Provider Reason For Exam: ams Technologist Note: Additional: AMS 3 hours into HD; BP 190/87 TECHNIQUE: CT of the head was performed without contrast according to standard protocol. CONTRAST: COMPARISON: CT head without contrast 04/28/2025 FINDINGS: There is mild cerebral volume loss with associated ex vacuo ventricular dilatation. The basal cisterns are patent. No mass effect or midline shift is seen. Chronic lacunar infarct within the right haro radiata (series 3 image 24). The baird-white matter differentiation otherwise appears normal. Periventricular white matter hypoattenuation is nonspecific, but can be seen in the setting of chronic small vessel ischemic disease. There is atherosclerotic calcification of the carotid siphons. There are bilateral nonnative lenses within the globes. The ocular muscles are normal, without radiologic sign of entrapment. The right frontal sinus is aplastic. Old right-sided lamina papyracea fracture. There is mild left-sided deviation of the nasal septum with right-sided spur. The paranasal sinuses are otherwise normal. The mastoid air cells are normal. No acute calvarial fracture is identified. Procedure Note Lora Driver MD - 07/07/2025 PROCEDURE: CT HEAD WO CONTRAST, DATE/TIME OF EXAM: 07/07/2025 1:30 PM, LOCATION [facility] INDICATION: R41.82: Altered mental status, unspecified altered mental status type ADDITIONAL CLINICAL INFORMATION: Ordering Provider Reason For Exam: ams Technologist Note: Additional: AMS 3 hours into HD; BP 190/87 TECHNIQUE: CT of the head was performed without contrast according to standard protocol. CONTRAST: COMPARISON: CT head without contrast 04/28/2025 FINDINGS: There is mild cerebral volume loss with associated ex vacuo ventricular dilatation. The basal cisterns are patent. No mass effect or midlineshift is seen. Chronic lacunar infarct within the right haro radiata (series3 image 24). The baird-white matter differentiation otherwise appearsnormal. Periventricular white matter hypoattenuation is nonspecific, but can be seen in the setting of chronic small vessel ischemic disease. There is atherosclerotic calcification of the carotid siphons. There are bilateral nonnative lenses within the globes. The ocularmuscles are normal, without radiologic sign of entrapment. The right frontalsinus is aplastic. Old right-sided lamina papyracea fracture. There is mild left-sided deviation of the nasal septum with right-sided spur. The paranasal sinuses are otherwise normal. The mastoid air cells arenormal. No acute calvarial fracture is identified. IMPRESSION: 1. No acute intracranial hemorrhage, territorial infarct or herniation. Please note that CT is insensitive to small infarcts, particularly inthe posterior fossa. For this reason, MRI is recommended if clinicalsuspicion for infarct remains high. > Dictated by Domingo Lugo M.D. radiology teacher > Dictated by Field Operations Supervisor I, Lora Driver MD have personally reviewed and interpreted this examination/study. > Interpreting Provider: Lora Driver MD on 07/07/2025 2:04 PM Marco Narvaez MD CT ORDERABLES Final Result * EKG 12-LEAD (07/07/2025 12:24 PM CDT) Ventricular Rate 82 BPM [facility] MUSE Atrial Rate 82 BPM [facility] MUSE P-R Interval 198 ms [facility] MUSE QRS Duration ms 142 ms [facility] MUSE Q-T Interval ms 430 ms [facility] MUSE QTC Calculation (Bezet) 502 ms [facility] MUSE Calculated R [place] -158 degrees SL MUSE Calculated T [place] -176 degrees [facility] MUSE Interpretation EKG NORMAL SINUS RHYTHM RIGHT BUNDLE BRANCH BLOCK T WAVE ABNORMALITY, CONSIDER INFERIOR ISCHEMIA ABNORMAL ECG NO PREVIOUS ECGS AVAILABLE Confirmed by ANIKA RILEY MD ([id number]) on 07/13/2025 7:56:05 PM [facility] MUSE 07/07/2025 12:2 4 PM CDT 07/13/2025 7:56 PM CDT Marco Narvaez MD ECG ORDERABLES Edited Result - Final [facility] * TROPONIN-I HIGH SENSITIVE REFLEX 1HOUR (07/07/2025 12:17 PM CDT) Troponin I High Sensitive 19 <=35 ng/L 07/07/2025 1:03 PM CDT [facility] Delta Troponin I HS 07/07/2025 1:03 PM CDT [facility] Comment:Delta value intentio kayla not calculated. Baseline to 1 hour specimen collection interval exceeded. Blood BLOOD SPECIMEN / Unknown Venipuncture / Unknown 07/07/2025 12:17 PM CDT 07/07/2025 12:27 PM CDT us Marco Narvaez MD LAB - CHEMISTRY ORDERABLES Final Result Performing Organization Address City/[facility]/ZIP Co de Phone Number [address] [address], [facility] [phone] * LACTIC ACID BLOOD REFLEX TO REPEAT (07/07/2025 12:17 PM CDT) Only the most recent of2 resultswithin the time period is included. Lactic Acid-Stat 1.3 <=2.0 mmol/L 07/07/2025 12:55 PM CDT [facility] Blood BLOOD SPECIMEN / Unknown Venipuncture / Unknown 07/07/2025 12:17 PM CDT 07/07/2025 12:28 PM CDT us Marco Narvaez MD LAB - CHEMISTRY ORDERABLES Final Result Performing Organization Address City/[facility] Co de Phone Number [address] [address], [facility] [phone] * XR CHEST 1VW PORTABLE (07/07/2025 10:38 AM CDT) Anatomical Region Laterality Modality Chest Digital Radiogra phy 07/07/2025 10:4 0 AM CDT Impressions 07/07/2025 11:13 AM CDT IMPRESSION: Minimal basilar atelectasis, otherwise no acute cardiopulmonary abnormality. Report dictated by Rosalind Norman M.D., [radiology teacher'. > Dictated by Field Operations Supervisor I, Letty Oconnor MD have personally reviewed and interpreted this examination/study. > Interpreting Provider: Letty Oconnor MD on 07/07/2025 11:13 AM Narrative 07/07/2025 11:13 AM CDT PROCEDURE: XR CHEST 1VW PORTABLE, DATE/TIME OF EXAM: 07/07/2025 10:38 AM, LOCATION [facility] INDICATION: R41.82: Altered mental status, unspecified altered mental status type ADDITIONAL CLINICAL INFORMATION: Ordering Provider Reason For Exam: ams COMPARISON: Chest radiograph 04/27/2025. TECHNIQUE: Portable, AP view FINDINGS/ IMPRESSION: Bilateral low lung volumes with mild bronchovascular crowding. Minimal basilar atelectasis. There is no focal consolidation, pleural effusion, or pneumothorax. The cardiomediastinal silhouette is partially obscured; visible cardiomediastinal contours are normal. No acute osseous abnormality. Procedure Note Letty Oconnor MD - 07/07/2025 PROCEDURE: XR CHEST 1VW PORTABLE, DATE/TIME OF EXAM: 07/07/2025 10:38AM, LOCATION [facility] INDICATION: R41.82: Altered mental status, unspecified altered mental status type ADDITIONAL CLINICAL INFORMATION: Ordering Provider Reason For Exam: ams COMPARISON: Chest radiograph 04/27/2025. TECHNIQUE: Portable, AP view FINDINGS/ IMPRESSION: Bilateral low lung volumes with mild bronchovascular crowding. Minimal basilar atelectasis. There is no focal consolidation, pleural effusion, or pneumothorax. The cardiomediastinal silhouette is partially obscured; visible cardiomediastinal contours are normal. No acute osseous abnormality. IMPRESSION: Minimal basilar atelectasis, otherwise no acute cardiopulmonary abnormality. Report dictated by Rosalind Norman M.D., [radiology teacher'. > Dictated by Field Operations Supervisor I, Letty Oconnor MD have personally reviewed and interpreted this examination/study. > Interpreting Provider: Letty Oconnor MD on 07/07/2025 11:13 AM Marco Narvaez MD DIAGNOSTIC IMAGING ORDERABLES Fi nal Result * (ABNORMAL) URINALYSIS REFLEX MICROSCOPIC REFLEX CULTURE (07/07/2025 10:19 AM CDT) Color UA Colorless(A) Yellow, Straw 07/07/2025 10:38 AM CDT [facility] Clarity UA Clear Clear 07/07/2025 10:38 AM CDT [facility] Glucose UA 2+(A) Normal 07/07/2025 10:38 AM CDT [facility] Bilirubin UA Negative Negative 07/07/2025 10:38 AM [facility] Ketone UA Negative Negative 07/07/2025 10:38 AM [facility] Specific Gentry UA 1.008 1.005 - 1.030 07/07/2025 10:38 AM [facility] Blood UA Negative Negative 07/07/2025 10:38 AM [facility] pH UA 8.0 5.0 - 8.0 07/07/2025 10:38 AM [facility] Protein UA 2+(A) Negative 07/07/2025 10:38 AM [facility] Urobilinogen UA Normal Normal mg/dL 07/07/2025 10:38 AM [facility] Nitrite UA Negative Negative 07/07/2025 10:38 AM [facility] Leukocyte Esterase UA Negative Negative 07/07/2025 10:38 AM [facility] RBC UA 3-5 0 - 5 # /hpf 07/07/2025 10:38 AM [facility] WBC UA 0-5 0 - 5 # /hpf 07/07/2025 10:38 AM [facility] Bacteria UA None Seen None Seen 07/07/2025 10:38 AM [facility] Squamous Epithelial Cells 0-2 0 - 5 /hpf 07/07/2025 10:38 AM [facility] Reflex Status Culture not indicated 07/07/2025 10:38 AM [facility] Urine URINE SPECIMEN OBTAINED BY SINGLE CATHETERIZATION OF URINARY BLADDER / Unknown Collection / Unknown 07/07/2025 10:19 AM CDT 07/07/2025 10:25 AM [facility] us Marco Narvaez MD LAB - URINALYSIS ORDERABLES Shayla l Result [facility] [address] [place] [address], [facility] [phone] * (ABNORMAL) CBC W AUTO DIFFERENTIAL (07/07/2025 10:17 AM CDT) WBC 6.9 4.0 - 10.7 x10E9/L 07/07/2025 10:29 AM [facility] RBC Count 2.89(L) 4.30 - 5.80 x10E12/L 07/07/2025 10:29 AM [facility] Hemoglobin 8.9(L) 13.3 - 17.5 g/dL 07/07/2025 10:29 AM [facility] Hematocrit 27.1(L) 38.7 - 51.1 % 07/07/2025 10:29 AM [facility] MCV 93.8 80.0 - 98.0 fL 07/07/2025 10:29 AM [facility] MCH 30.8 26.7 - 33.6 pg 07/07/2025 10:29 AM [facility] MCHC 32.8 31.7 - 36.3 g/dL 07/07/2025 10:29 AM [facility] RDW-CV 13.8 11.3 - 14.8 % 07/07/2025 10:29 AM [facility] Platelet Count 204 150 - 420 x10E9/L 07/07/2025 10:29 AM [facility] MPV 11.0 7.8 - 11.4 fL 07/07/2025 10:29 AM [facility] Neutrophil % 85.1(H) 41.0 - 74.0 % 07/07/2025 10:29 AM [facility] Lymphocyte % 8.1(L) 17.0 - 47.0 % 07/07/2025 10:29 AM [facility] Monocyte % 4.5 3.0 - 11.0 % 07/07/2025 10:29 AM [facility] Eosinophil % 1.6 0.0 - 7.0 % 07/07/2025 10:29 AM [facility] Basophil % 0.3 0.0 - 1.6 % 07/07/2025 10:29 AM [facility] Immature Granulocytes % 0.4 0.0 - 1.0 % 07/07/2025 10:29 AM [facility] Neutrophil Absolute 5.91 1.60 - 7.50 x10E9/L 07/07/2025 10:29 AM CDT [facility] Lymphocyte Absolute 0.56(L) 1.00 - 4.40 x10E9/L 07/07/2025 10:29 AM CDT [facility] Monocyte Absolute 0.31 0.15 - 1.00 x10E9/L 07/07/2025 10:29 AM CDT [facility] Eosinophil Absolute 0.11 0.00 - 0.60 x10E9/L 07/07/2025 10:29 AM CDT [facility] Basophil Absolute 0.02 0.00 - 0.13 x10E9/L 07/07/2025 10:29 AM CDT [facility] Blood BLOOD SPECIMEN / Unknown Venipuncture / Unknown 07/07/2025 10:17 AM CDT 07/07/2025 10:22 AM CDT Marco Narvaez MD LAB - HEMATOLOGY ORDERABLES Shayla l Result Performing Organization Address City/[facility]/ZIP Co de Phone Number [facility] [address] [place] [address], [facility] [phone] * CULTURE BLOOD (07/07/2025 9:54 AM CDT) Culture No growth day 5 JIMBO 07/12/2025 2:01 PM CDT [facility] Blood PERIPHERAL BLOOD / Unknown Venipuncture / Unknown 07/07/2025 9:54 AM CDT 07/07/2025 9:56 AM CDT Marco Narvaez MD LAB - MICROBIOLOGY ORDERABLES Fi nal Result [facility] [address] [place] [address], [facility] [phone] * (ABNORMAL) LEVETIRACETAM LEVEL (07/07/2025 9:52 AM CDT) Levetiracetam <2.0(L) 10.0 - 40.0 ug/mL 07/08/2025 7:01 PM CDT [facility] ([facility]) Comment: INTERPRETIVE INFORMATION: Keppra (Levetiracetam) Therapeutic Range: 10-40 ug/mL Toxic: Not well Established Pharmacokinetics of levetiracetam are affected by renal function. Adverse effects may include somnolence, weakness, headache and vomiting. This levetiracetam (Keppra) immunoassay uses the [employer] reagents, which has known cross-reactivity with the drug brivaracetam (Briviact) and may report inaccurate results. Patients transitioning from levetiracetam to brivaracetam or those who are using both medications should not monitor drug concentrations with the [employer] assay. These patients should be monitored using a validated chromatographic methodology that distinguishes between drugs to determine drug concentrations. Performed By: [facility] [employer] [address] [place] [address] Client Support Consultant: Eliseo Pimentel MD, PhD CLIA Number: [id number] Blood BLOOD SPECIMEN / Unknown Venipuncture / Unknown 07/07/2025 9:52 AM CDT 07/07/2025 9:57 AM CDT Marco Narvaez MD LAB - THERAPEUTIC DRUG MONITORIN G ORDERABLES Final Result [facility] ([facility]) [address] [place] [address] * PT-INR (07/07/2025 9:52 AM CDT) PT 12.9 12.1 - 14.8 Seconds 07/07/2025 10:27 AM CDT [facility] INR 1.0 See Comment 07/07/2025 10:27 AM CDT [facility] Comment:The suggested therap eutic range for standard coumadin (warfarin) therapy is an INR of 2.0-3.0. For high-risk patients (Mechanical Mitral Valve Prosthesis, etc.), the suggested prophylactic therapeutic range is an INR of 2.5-3.5. Blood BLOOD SPECIMEN / Unknown Venipuncture / Unknown 07/07/2025 9:52 AM CDT 07/07/2025 9:56 AM CDT Marco Narvaez MD LAB - COAGULATION ORDERABLES Fin al Result Performing Organization Address [facility] Co de Phone Number [address] [address], [facility] [phone] * (ABNORMAL) B-TYPE NATRIURETIC PEPTIDE (07/07/2025 9:52 AM CDT) BNP 771(H) <100 pg/mL 07/07/2025 10:36 AM CDT [facility] Comment: A decision threshold of 100 pg/mL has been demonstrated to provide the maximal combination of sensitivity, specificity and predictive value for the diagnosis of congestive heart failure (CHF). Virtually all patients with no evidence of CHF have BNP values less than 100 pg/mL. A BNP value greater than 100 pg/mL is consistent with the diagnosis of CHF in the appropriate clinical setting. In a study of 693 patients (male and female) with diagnosed CHF, the following values were determined based on the NYHA functional classification system: NYHA Functional Class Mean Valule (pg/mL) % >100 pg/mL I 320 58.1 II 432 73.0 III 656 79.0 IV 1635 98.3 Blood BLOOD SPECIMEN / Unknown Venipuncture / Unknown 07/07/2025 9:52 AM CDT 07/07/2025 10:02 AM CDT us Marco Narvaez MD LAB - CHEMISTRY ORDERABLES Final Result Performing Organization Address [facility] Co de Phone Number [address] [address], [facility] [phone] * TROPONIN-I HIGH SENSITIVE BASELINE + 1HR (07/07/2025 9:43 AM CDT) Troponin I High Sensitive 13 <=35 ng/L 07/07/2025 10:35 AM CDT [facility] Blood BLOOD SPECIMEN / Unknown Venipuncture / Unknown 07/07/2025 9:43 AM CDT 07/07/2025 9:49 AM CDT us Marco Narvaez MD LAB - CHEMISTRY ORDERABLES Final Result Performing Organization Address [facility]/ZIP Co de Phone Number [address] [place] [address], [facility] [phone] * TSH REFLEX FREE T4 (07/07/2025 9:43 AM CDT) Pathologist [facility] TSH 0.520 0.350 - 4.940 uIU/mL 07/07/2025 10:35 AM [facility] Blood BLOOD SPECIMEN / Unknown Venipuncture / Unknown 07/07/2025 9:43 AM CDT 07/07/2025 9:49 AM CDT Marco Narvaez MD LAB - CHEMISTRY ORDERABLES Final Result [address] [address], [facility] [phone] * (ABNORMAL) COMPREHENSIVE METABOLIC PANEL (07/07/2025 9:43 AM CDT) [facility] BUN 29(H) 7 - 26 mg/dL 07/07/2025 10:22 AM [facility] Creatinine 4.59(H) 0.71 - 1.16 mg/dL 07/07/2025 10:22 AM [facility] Sodium 138 136 - 145 mmol/L 07/07/2025 10:22 AM [facility] Potassium 4.0 3.5 - 4.5 mmol/L 07/07/2025 10:22 AM [facility] Chloride 104 98 - 107 mmol/L 07/07/2025 10:22 AM [facility] CO2 25 22 - 29 mmol/L 07/07/2025 10:22 AM [facility] Glucose 162(H) 70 - 99 mg/dL 07/07/2025 10:22 AM [facility] Calcium 7.8(L) 8.4 - 10.2 mg/dL 07/07/2025 10:22 AM [facility] Protein Total 6.2 6.0 - 8.3 g/dL 07/07/2025 10:22 AM [facility] Albumin 3.5 3.4 - 5.0 g/dL 07/07/2025 10:22 AM [facility] Bilirubin Total 0.5 0.2 - 1.2 mg/dL 07/07/2025 10:22 AM [facility] Alkaline Phosphatase 76 40 - 150 U/L 07/07/2025 10:22 AM [facility] ALT 8 5 - 55 U/L 07/07/2025 10:22 AM [facility] AST 15 5 - 34 U/L 07/07/2025 10:22 AM [facility] Anion Gap 9 6 - 16 07/07/2025 10:22 AM [facility] BUN/Creatinine Ratio 6(L) 7 - 23 07/07/2025 10:22 AM [facility] Osmolality Calculated 295 275 - 295 mOsm/kg 07/07/2025 10:22 AM [facility] Albumin/Globulin Ratio 1.3 1.1 - 2.3 07/07/2025 10:22 AM [facility] eGFR by CKD-EPI 13(L) >=90 mL/min/1.7 3 m2 07/07/2025 10:22 AM [facility] Comment:Estimated Glomerular Filtration Rate (eGFR) calculated using the CKD-EPI Creatinine Equation (2020), per the National Kidney Foundation and [place] Society of Nephrology recommendations. Blood BLOOD SPECIMEN / Unknown Venipuncture / Unknown 07/07/2025 9:43 AM CDT 07/07/2025 9:49 AM CDT Marco Narvaez MD LAB - CHEMISTRY ORDERABLES Final Result [facility] [address] [place] [address], [facility] [phone] * MAGNESIUM BLOOD (07/07/2025 9:43 AM CDT) Magnesium 1.9 1.6 - 2.6 mg/dL 07/07/2025 10:22 AM [facility] Blood BLOOD SPECIMEN / Unknown Venipuncture / Unknown 07/07/2025 9:43 AM CDT 07/07/2025 9:49 AM CDT Marco Narvaez MD LAB - CHEMISTRY ORDERABLES Final Result Performing Organization Address City/[facility]/ZIP Co de Phone Number [address] [address], [facility] [phone] * LIPASE BLOOD (07/07/2025 9:43 AM CDT) Lipase 28 8 - 78 U/L 07/07/2025 10:22 AM CDT [facility] Blood BLOOD SPECIMEN / Unknown Venipuncture / Unknown 07/07/2025 9:43 AM CDT 07/07/2025 9:49 AM CDT Narrative [facility] - 07/07/2025 10:22 AM CDT Lipase results from the [employer] Alinity analyzer may not be comparable with other methodologies. Marco Narvaez MD LAB - CHEMISTRY ORDERABLES Final Result Performing Organization Address [facility] Co de Phone Number [address] [address], [facility] [phone] * (ABNORMAL) HEMOGLOBIN A1C (04/26/2025 7:59 AM CDT) Hemoglobin A1c 8.6(H) <=5.6 % 04/26/2025 10:14 AM T [facility] Estimated Average Glucose 200 mg/dL 04/26/2025 10:14 AM T [facility] Comment: HbA1c Interpretation: Normal : < 5.7% Pre-diabetes: 5.7-6.4% Diabetes: Equal to or greater than 6.5% Test results diagnostic of diabetes should be repeated for confirmation. Treatment target values recommended by ADA and other clinical organizations should be used to evaluate metabolic control in patients. Reference: [place] Diabetes Association, Standards of Care in Diabetes -2020 In patients 70 years and older consider HbA1c target range of 7.0-7.5% (Reference: David Cruz et al. JAMDA. 2012) The [employer] assay for the measurement of HbA1c is a National Glycohemoglobin Standardization Program (NGSP) certified method. Blood BLOOD SPECIMEN / Unknown Venipuncture / Unknown 04/26/2025 7:59 AM CDT 04/26/2025 8:15 AM CDT Oc Schultz MD LAB - CHEMISTRY ORDERABLES Fin al Result [facility] [address] [place] [address], [facility] [phone] from Last 3 Months or Most Recently Relevant to Health Maintenance Advance Directives * Full Code (Latest Code Status on File) Date Activated Date Inactivated Comments 04/26/2025 5:55 AM 05/05/2025 8:32 PM Care Teams Money Manager Relationship Specialty Start Date End Date Pee Decker MD [address] [address] PCP - General Internal Medicine 07/09/25
[2025-08-18 08:35] LABS: Hematocrit 33.3 % (42.0-52.0); Hemoglobin 10.4 g/dL (14.0-18.0); Immature Granulocyte Percent A 1.3 % (0-0.5); Immature Platelet Fraction Pct 6.6 % (0.9-11.2); Lymphocytes Absolute Auto 1.05 K/mm3 (0.9-3.2); Mean Corpuscular HGB Conc 31.2 g/dl (32-36); Mean Corpuscular Hemoglobin 29.8 pg (26-34); Mean Corpuscular Volume 95.4 fl (80-100); Nucleated Red Blood Cells Absolute Auto 0.000 K/mm3 (0.0-0.012); Nucleated Red Blood Cells Perc 0.0 % (0.0-0.2); Platelet Count Result 194 k/mm3 (150-375); Red Blood Count 3.49 M/mm3 (4.6-6.20); White Blood Count 7.9 K/mm3 (4.5-10.0)
[2025-08-18 08:41] LABS: INR 1.0; Partial Thromboplastin Time 22.4 Seconds (22.3-36.8); Prothrombin Time 13.7 Seconds (11.1-14.7)
[2025-08-18 08:49] LABS: Alanine Aminotransferase 11 U/L (6-50); Albumin Level 4.4 g/dL (3.5-5.1); Alkaline Phosphatase 109 U/L (38-126); Anion Gap 13 mmol/L (4-12); Aspartate Amino Transferase 21 U/L (17-59); Bilirubin,Total 0.8 mg/dL (0.2-1.3); Blood Urea Nitrogen 34 mg/dL (9-20); Calcium 9.3 mg/dL (8.4-10.2); Carbon Dioxide 25 mmol/L (22-30); Chloride 100 mmol/L (98-107); Estimated CRCL calculation 5 ml/min; Estimated Glomerular Filt Rate 5; Glucose 87 mg/dL (65-110); Potassium 4.1 mmol/L (3.4-5.0); Sodium 138 mmol/L (137-145); Total Protein 7.8 g/dL (6.3-8.2)
[2025-08-18 09:00] LABS: Troponin I 0.023 ng/mL (0.000-0.034)
--- NOTE | 2025-08-18 09:59 | PC.NURSE ---
called [facility] [place] and spoke with Delmy about setting up transportation to [facility] and was transferred to the certified social workers in health care where a message was left. at this time no transportation to dialysis was set up.
[2025-08-18] MEDS: METOPROLOL TARTRATE 12.5 MG TABLET PO (10:21)
--- NOTE | 2025-08-18 10:23 | PC.NURSE ---
spoke to [facility] a second time when they called back and was told to send the patient back to the [place] and they would send him on to dialysis and that Mele would have to take hime late to his appointment. arrangements being made at this time for transportation back to facility and patient given medications to address BP.
--- NOTE | 2025-08-18 10:32 | PC.NURSE ---
report called to Shreya LOPEZ at this time
== END 2025-08-18 11:21 | disposition home or self-care (01) ==
PROVIDERS: Emergency Provider Emergency Medicine; PCP Internal Medicine
DX: R41.82 Altered mental status, unspecified (principal); W19.XXXA Unspecified fall, initial encounter; I12.0 Hypertensive chronic kidney disease with stage 5 chronic kidney disease or end stage renal disease; E11.22 Type 2 diabetes mellitus with diabetic chronic kidney disease; N18.6 End stage renal disease; Z99.2 Dependence on renal dialysis; F03.90 Unspecified dementia, unspecified severity, without behavioral disturbance, psychotic disturbance, mood disturbance, and anxiety
CPT/HCPCS: 36415; 70450; 71045; 80053; 82948; 84484; 85025; 85055; 85610; 85730; 93005; 99284; A9270

== ENCOUNTER 2025-09-17 16:14 | Emergency (ER) | payer MEDICAID, SELFPAY ==
--- OUTSIDE RECORDS SUMMARY | 2023-12-27 19:00 | XMS_ITS | Continuity of Care Document ---
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 Name Role Phone Mel Escalante MD Unavailable Unavailable Allergies, Adverse Reactions, Alerts Substance Reaction Status Criticality No Known Allergies Active No Inform ation Medications Medication Instructions Dosage Effective Dates (start - stop) Status Comments sodium bicarbonate 650 mg tablet take 2 by Oral route 2 times every day 2 - Active amlodipine 10 mg tablet take 1 tablet by oral route every day 10 MG - Active ferrous sulfate 325 mg (65 mg iron) tablet take 1 tablet by oral route every day 325 MG - Active hydralazine 10 mg tablet take 1 tablet by oral route 2 times every day with food 10 MG - Active acetaminophen 325 mg capsule take 2 tablet by oral route 3 times every day 2 tablet - Active calcitriol 0.25 mcg capsule take 1 capsule by oral route every day 0.25 MCG - Active calcium acetate 667 mg tablet take 1 tablet by oral route 3 times every day 1 tablet - Active Senna Plus 8.6 mg-50 mg tablet take 2 tablet by oral route every day 2 tablet - Active Vitamin D3 50 mcg (2,000 unit) tablet take 1 capsule by oral route every week - Active gabapentin 100 mg capsule take 1 by Oral route 3 times every day 1 - Active levetiracetam 500 mg tablet take 1 tablet by oral route 2 times every day 500 MG - Active omeprazole 20 mg tablet,delayed release take 1 tablet by oral route every day 1 tablet - Active Reglan 5 mg tablet take 1 by Oral route 3 times every day - Active sertraline 100 mg tablet take 1 tablet by oral route every day 100 MG - Active thiamine HCl (vitamin B1) 100 mg tablet Take 1 tablet by mouth once daily - Active Procedures Procedure Date ESRD Srvcs/PD, Mnth[place]; >20 YO 4 ESRD Srvcs/PD, Mnthly; >20 YO 4 ESRD Srvcs/PD, [place]th[place]; >20 YO 3 Initial Hospital Care Subsequent Hospital Care ESRD Srvcs/PD, Mnth[place]; >20 YO 3 ESRD Srvcs/PD, Mnth[facility]; >20 YO 3 ESRD Srvcs/PD, [facility]; >20 YO 3 ESRD Srvcs/PD, [facility]; >20 YO 3 ESRD Srvcs/PD, [facility]; >20 YO 3 ESRD Srvcs/PD, [place]; >20 YO 3 ESRD Srvcs/PD, [place]th[facility]; >20 YO 3 ESRD Srvcs/PD, [place]th[place]; >20 YO [address] CIRCUIT [address] Catheter In Artery Artery X-rays, Arm/leg MOD SED SAME PHYS/QHP 5/>YRS Inj Midazolam Hydrochloride Fentanyl Citrate Injeciton Omnipaque ESRD Srvcs/PD, Mnth[place]; >20 YO 3 ESRD Srvcs/PD, Mnth[place]; >20 YO 3 ESRD Srvcs/PD, [place]th[facility]; >20 YO 3 ESRD Srvcs/PD, [place]th[facility]; >20 YO 2 ESRD Srvcs/PD, [place]th[facility]; >20 YO 2 ESRD Srvcs/PD, [place]th[facility]; >20 YO 2 ESRD Srvcs/PD, [place]; >20 YO 2 ESRD Srvcs/PD, [place]; >20 YO 2 ESRD Srvcs/PD, [place]; >20 YO 2 ESRD Srvcs/PD, [place]; >20 YO 2 ESRD Srvcs/PD, [place]; >20 YO 2 ESRD Srvcs/PD, [place]; >20 YO 2 ESRD Srvcs/PD, [place]; >20 YO 2 ESRD Srvcs/PD, [place]; >20 YO 2 ESRD Srvcs/PD, [place]; >20 YO 2 ESRD Srvcs/PD, [place]th[facility]; >20 YO 1 ESRD Srvcs/PD, [place]; >20 YO 1 ESRD Srvcs/PD, [place]; >20 YO 1 ESRD Srvcs/PD, [place]; >20 YO 1 ESRD Srvcs/PD, [place]th[facility]; >20 YO 1 ESRD Srvcs/PD, Mnthly; >20 YO [address]IAL[address]IS CIRCUIT [address] Catheter In Artery Artery X-rays, Arm/leg MOD SED SAME PHYS/QHP 5/>YRS Omnipaque Inj Midazolam Hydrochloride Fentanyl Citrate Injeciton ESRD Srvcs/PD, Mnthly; >20 YO 1 ESRD Srvcs/PD, Mnth[facility]; >20 YO 1 ESRD Srvcs/PD, [facility]th[facility]; >20 YO 1 ESRD Srvcs/PD, [facility]th[facility]; >20 YO 1 ESRD Srvcs/PD, Mnthly; >20 YO 1 ESRD Srvcs/PD, Mnthly; >20 YO 1 Subsequent Hospital Care Hemodialysis, One Evaluation Initial Hospital Care Subsequent Hospital Care Office/outpatient Visit, Est Office/outpatient Visit, Est No Charge Subsequent Hospital Care Initial Inpatient Consult Advance Directives Directive Yes / No Effective Date File Name No Information Encounters Encounter Description Practice Location Reason(s) For Visit Diagnoses Date Provider Providers Copied on Encounter [facility], [address] [place] [address], [address] [place] [address] tel:[phone] [facility] End stage renal diseaseDepend ence on renal dialysis 4 Boris Leal. 901 [facility], [address], [id number], . tel:[phone] Referring Provider: Telly Pool, [address] [place] [address], [id number]. tel:[phone] [facility], [address] [place] [address], [facility], tel:[phone] Ch[facility] Pitman [facility] D End stage renal diseaseDepend ence on renal dialysis 4 Georgi Contreras [address] [place] [address], [address] [place] [address], [id number], . tel:[phone] Referring Provider: Telly Pool, [address] [place] [address] [place] [address], [id number]. tel:[phone] [facility], [address] [place] [address], [id number], tel:[phone] [place] [facility] End stage renal diseaseDepend ence on renal dialysis 3 Georgi Gutierrez. [address] [place] [address], [address] [place] [address], [id number], . tel:[phone] Referring Provider: Telly Pool, [address] [place] [address] [place] [address], [id number]. tel:[phone] Initial Hospital Care [facility], [address] [place], [address], [place] tel:[phone] [facility] End stage renal diseaseHypert ensive chronic kidney disease with stage 5 chronic kidney disease or end stage renal diseaseAnemia in chronic kidney diseaseFever, unspecifiedDe pendence on renal dialysis 3 Faraz Aguilar. [address]01 [facility], [address], [id number], [place]. tel:[phone] Referring Provider: Telly Pool, [facility] [address] [place] [address], [id number]. tel:[phone] Subsequent [facility], [address] [place] [address], [address], tel:[phone] [facility] End stage renal diseaseAnemia in chronic kidney diseaseFever, unspecifiedDe pendence on renal dialysis 3 Faraz Aguilar. [address] [facility], [address], [id number], [place]. tel:[phone] Referring Provider: Telly Pool, [facility] [address] [place] [address], [id number]. tel:[phone] [facility], [address] [place], [address], tel:[phone] [facility] End stage renal diseaseDepend ence on renal dialysis 3 Heidi Varner. [address] [place] [address], [address] [place] [address], [id number], [place]. tel:[phone] Referring Provider: Telly Pool, [address] [place] [address] [place] [address], [id number]. tel:[phone] [facility], [address], [place], [address], tel:[phone] [facility] End stage renal diseaseDepend ence on renal dialysis Oct- 3 Heidi Varner. [address] [place] [address], [id number], . tel:[phone] Referring Provider: Telly Pool, [address] [place] [address], [id number]. tel:[phone] [facility], [address] [place] [address], [facility], tel:[phone] [facility] End stage renal diseaseDepend ence on renal dialysis Sep- 3 Heidi Varner. [address] [place] [address], [address], [id number], . tel:[phone] Referring Provider: Telly Pool, [address] [place] [address], [address] [place] [address]. tel:[phone] [facility], [address] [place] [address], [facility], tel:[phone] [facility] End stage renal diseaseDepend ence on renal dialysis 3 Heidi Varner. [address] [place] [address], [address], [id number], . tel:[phone] Referring Provider: Telly Pool, [address] [place] [address], [id number]. tel:[phone] [facility], [address] [place] [address], [facility], tel:[phone] [facility] End stage renal diseaseDepend ence on renal dialysis 3 Heidi Varner. [address] [place] [address], [address], [id number], . tel:[phone] Referring Provider: Telly Pool, [address] [place] [address], [id number]. tel:[phone] [facility], [address] [place] [address], [address], tel:[phone] [facility] End stage renal diseaseDepend ence on renal dialysis 3 Heidi Varner. [facility], [address], [id number], . tel:[phone] Referring Provider: Telly Pool, [address] [place] [address], [id number]. tel:[phone] [facility], [address] [place] [address], [address], tel:[phone] [facility] End stage renal diseaseDepend ence on renal dialysis 3 Heidi Varner. [address] [place] [address], [address], [id number], [place]. tel:[phone] Referring Provider: Telly Pool, [facility] [address], [id number]. tel:[phone] [facility], [address] [place] [address], [id number], tel:[phone] [facility] End stage renal diseaseDepend ence on renal dialysis 0 3 Heidi Varner. [address] [place] [address], [id number], [place]. tel:[phone] Referring Provider: Telly Pool, [facility] [address], [id number]. tel:[phone] [facility], [address] [place] [address], [id number], tel:[phone] [facility] No Information 3 Srinivas Rao. [address] [facility], [address], [place], [id number], . tel:[phone] Referring Provider: Telly Pool, [address] [place] [address], [id number]. tel:[phone] [facility], [address] [place] [address], [address], tel:[phone] [facility] End stage renal diseaseDepend ence on renal dialysis 3 Heidi Varner. [address] [place] [address], [address], [id number], [place]. tel:[phone] Referring Provider: Telly Pool, [address] [place] [address], [id number]. tel:[phone] [facility], [address], [facility], tel:[phone] [facility] End stage renal diseaseDepend ence on renal dialysis 3 Heidi Varner. [address] [place] [address], [id number], [place]. tel:[phone] Referring Provider: Telly Pool, [address] [place] [address], [id number]. tel:[phone] [facility], [address], [address], tel:[phone] [facility] End stage renal diseaseDepend ence on renal dialysis 3 Heidi Varner. [address] [place] [address], [id number], [place]. tel:[phone] Referring Provider: Telly Pool, [facility] [address], [id number]. tel:[phone] [facility], [address], [facility], tel:[phone] [facility] End stage renal diseaseDepend ence on renal dialysis Dec-0 2 Heidi Varner. [address] [place] [address], [address], [id number], . tel:[phone] Referring Provider: Telly Pool, [address] [place] [address], [address] [place] [address]. tel:[phone] [facility], [address] [place] [address], [facility], tel:[phone] [facility] End stage renal diseaseDepend ence on renal dialysis Nov-0 2 Heidi Varner. [address] [place] [address], [address], [address] [place] [address], . tel:[phone] Referring Provider: Telly Pool, [address] [place] [address], [address] [place] [address]. tel:[phone] [facility], [address] [place] [address], [facility], tel:[phone] [facility] End stage renal diseaseDepend ence on renal dialysis Oct-0 2 Heidi Varner. [address] [place] [address], [address], [address] [place] [address], . tel:[phone] Referring Provider: Telly Pool, [address] [place] [address], [address] [place] [address]. tel:[phone] [facility], [address] [place] [address], [facility], tel:[phone] [facility] End stage renal diseaseDepend ence on renal dialysis Sep-0 2 Heidi Mccracken [address] [place] [address], [address], [address] [place] [address], . tel:[phone] Referring Provider: Telly Pool, [address], [id number]. tel:[phone] [facility], [address] [place] [address], [facility], tel:[phone] [facility] End stage renal diseaseDepend ence on renal dialysis 2 Heidi Varner. [address] [place] [address], [id number], . tel:[phone] Referring Provider: Telly Pool, [facility] [address], [id number]. tel:[phone] [facility], [address] [place] [address], [facility], tel:[phone] [facility] End stage renal diseaseDepend ence on renal dialysis 2 Heidi Varner. [address] [place] [address], [address] [place] [address], . tel:[phone] Referring Provider: Telly Pool, [facility] [address], [id number]. tel:[phone] [facility], [address], [facility], tel:[phone] [facility] End stage renal diseaseDepend ence on renal dialysis 2 Heidi Varner. [address] [place] [address], [address], [id number], . tel:[phone] Referring Provider: Telly Pool, [facility] [address], [id number]. tel:[phone] [facility], [address], [facility], tel:[phone] [facility] End stage renal diseaseDepend ence on renal dialysis 2 Heidi Mccracken [address] [place] [address], [address], [id number], . tel:[phone] Referring Provider: Telly Pool, [address] [place] [address], [id number]. tel:[phone] [facility], [address] [place] [address], [facility], tel:[phone] [facility] End stage renal diseaseDepend ence on renal dialysis 2 Heidi Varner. [address] [place] [address], [address], [id number], [place]. tel:[phone] Referring Provider: Telly Pool, [address] [place] [address], [id number]. tel:[phone] [facility], [address] [place] [address], [facility], tel:[phone] [place] [address] End stage renal diseaseDepend ence on renal dialysis 2 Heidi Varner. [address] [place] [address], [address], [id number], [place]. tel:[phone] Referring Provider: Telly Pool, [address] [place] [address], [id number]. tel:[phone] [facility], [address], [address], tel:[phone] [facility] End stage renal diseaseDepend ence on renal dialysis 2 Heidi Vanrer. [address] [place] [address], [address], [id number], [place]. tel:[phone] Referring Provider: Telly Pool, [address] [place] [address], [id number]. tel:[phone] [facility], [address], [address], tel:[phone] [facility] End stage renal diseaseDepend ence on renal dialysis 2 Heidi Varner. [address] [place] [address], [address], [id number], . tel:[phone] Referring Provider: Telly Pool, [address] [place] [address], [id number]. tel:[phone] [facility], [address] [place] [address], [facility], tel:[phone] [facility] End stage renal diseaseDepend ence on renal dialysis 1 Heidi Mccracken [address] [place] [address], [address], [id number], . tel:[phone] Referring Provider: Telly Pool, [address] [place] [address], [address] [place] [address]. tel:[phone] [facility], [address], [facility], tel:[phone] [facility] End stage renal diseaseDepend ence on renal dialysis 1 Heidi Mccracken [address] [place] [address], [address], [id number], . tel:[phone] Referring Provider: Telly Pool, [facility] [address], [id number]. tel:[phone] [facility], [address], [facility], tel:[phone] [facility] End stage renal diseaseDepend ence on renal dialysis 0 1 Heidi Mccracken [address] [place] [address], [address], [id number], . tel:[phone] Referring Provider: Telly Pool, [facility] [address], [id number]. tel:[phone] [facility], [address] [place] [address], [facility], tel:[phone] [facility] End stage renal diseaseDepend ence on renal dialysis 1 Heidi Varner. [address] [place] [address], [address], [id number], . tel:[phone] Referring Provider: Telly Pool, [address] [place] [address], [address] [place] [address]. tel:[phone] [facility], [address] [place] [address], [facility], tel:[phone] [facility] End stage renal diseaseDepend ence on renal dialysis 1 Heidi Varner. [address] [place] [address], [address], [id number], . tel:[phone] Referring Provider: Telly Pool, [address] [place] [address], [id number]. tel:[phone] [facility], [address], [facility], tel:[phone] [facility] End stage renal diseaseDepend ence on renal dialysis 1 Heidi Varner. [address] [place] [address], [address], [id number], . tel:[phone] Referring Provider: Telly Pool, [address] [place] [address], [id number]. tel:[phone] [facility], [address], [facility], tel:[phone] [facility] No Information 1 Srinivas Rao. [address] [facility], [address], [place], [id number], . tel:[phone] Referring Provider: Telly Pool, [facility] [address] [place] [address], [id number]. tel:[phone] [facility], [address] [place] [address], [facility], tel:[phone] [facility] End stage renal diseaseDepend ence on renal dialysis 1 Heidi Varner. [address] [place] [address], [address], [id number], . tel:[phone] Referring Provider: Telly Pool, [facility] [address] [place] [address], [id number]. tel:[phone] [facility], [address], [facility], tel:[phone] [facility] End stage renal diseaseDepend ence on renal dialysis 1 Heidi Varner. [address] [place] [address], [address], [id number], . tel:[phone] Referring Provider: Telly Pool, [facility] [address], [id number]. tel:[phone] [facility], [address], [facility], tel:[phone] [facility] End stage renal diseaseDepend ence on renal dialysis 1 Heidi Varner. [address] [place] [address], [address], [id number], . tel:[phone] [facility], [address] [place], [facility], tel:[phone] [facility] End stage renal diseaseDepend ence on renal dialysis Feb-0 1 Heidi Steinbergmir. [address] [facility], [address], [place], [id number], [place]. tel:[phone] [facility], [address] [place], [address], tel:[phone] [facility] End stage renal diseaseDepend ence on renal dialysis 0 1 Heidi [place]. [address] [facility], [address], [place], [id number], [place]. tel:[phone] [facility], [address], [place], [address], tel:[phone] [facility] End stage renal diseaseDepend ence on renal dialysis 1 Heidi Owensr. [address] [facility], [address], [place], [id number], [place]. tel:[phone] [facility], [address], [place], [address], tel:[phone] [facility] Chronic kidney disease, stage 5Essential (primary) hypertensionE xtrarenal uremia 1 Chan Vasquez. [facility], [address], [place], [id number], [place]. tel:[phone] Referring Provider: Virgil Gan [address] [place] [address] [place] [address], [address]. tel:[phone] [facility], [address], [place], [address], tel:[phone] [facility] Chronic kidney disease, stage 5Essential (primary) hypertensionE xtrarenal uremia 1 Chan Vasquez. [facility], [address], [place], [id number], [place]. tel:[phone] Referring Provider: Virgil Gan [facility] [address] [place] [address], [address]. tel:[phone] Initial [facility], [address] [place] [address], [address], tel:[phone] [facility] Chronic kidney disease, stage 5Essential (primary) hypertensionE xtrarenal uremia 1 Ivan LIGHT Molly. [address] [place] [address], [address], [id number], [place]. tel:[phone] Referring Provider: Virgil Gan, [address] [place] [address], [address]. tel:[phone] Subsequent [facility], [address] [place] [address], [facility], tel:[phone] [facility] Chronic kidney disease, stage 5Essential (primary) hypertensionE xtrarenal uremia 1 Ivan LIGHT Molly. [facility], [address], [id number], [place]. tel:[phone] Referring Provider: Virgil Gan, [address] [place] [address], [id number]. tel:[phone] Office/outpa tient Visit, [facility], [address] [place] [address], [facility], tel:[phone] [facility] Acute Renal Failure (chief complaint) Chronic Kidney Disease (chief complaint) Acute kidney injuryHyperte nsive chronic kidney disease with stage 1 through stage 4 chronic kidney disease, or unspecified chronic kidney diseaseChroni c kidney disease, stage 5Secondary hyperparathyr oidism of renal originEssenti al (primary) hypertensionA nemia in chronic kidney diseaseUnderw eight 1 Lindy Méndez. [address] [facility], [place], [place], [id number], [place]. tel:[phone] [facility], [address], [address], [place] tel:[phone] [place] [facility] No Information 1 Lindy Méndez. [address], [address], [place], [place], [id number], [place]. tel:[phone] [facility], [facility] [address] [place] [address], [place], [address], tel:[phone] [place] [facility] No Information 1 Lindy Méndez. [address], [address], [place], [place], [id number], [place]. tel:[phone] Office/outpa tient Visit, [place] [facility], [address] [place] [address], [address], tel:[phone] [place] [facility] Acute Renal Failure (chief complaint) Chronic Kidney Disease (chief complaint) Acute kidney injuryHyperte nsive chronic kidney disease with stage 1 through stage 4 chronic kidney disease, or unspecified chronic kidney diseaseChroni c kidney disease, stage 5Secondary hyperparathyr oidism of renal originEssenti al (primary) hypertensionA nemia in chronic kidney disease 0 Lindy Méndez. [address], [address], [place], [place], [id number], [place]. tel:[phone] [facility], [address] [place] [address], [address], tel:[phone] [place] [facility] No Information 0 Lindy Méndez. [address], [address], [place], [place], [id number], [place]. tel:[phone] [facility], [address] [place] [address], [address], [place] tel:[phone] [place] [facility] Acute kidney injury 0 Lindy Méndez. [address], [address], [place], [place], [id number], [place]. tel:[phone] [facility], [address] [place] [address], [address], tel:[phone] [place] [address] No Information 0 Lindy LIGHT Dev. [address], [place], [place], [id number], . tel:[phone] Subsequent Hospital Care [facility], [address] [place] [address], [address], tel:[phone] [facility] Hypertensive chronic kidney disease with stage 1 through stage 4 chronic kidney disease, or unspecified chronic kidney diseaseEssent ial (primary) hypertensionA nemia in chronic kidney diseaseSecond johanna hyperparathyr oidism of renal originOther disorders of phosphorus metabolism 0 Lindy Michelleit. [address], [place], [place], [id number], [place]. tel:[phone] Referring Provider: [address], [place], [address]. tel:[phone] Initial Inpatient Consult [facility], [address] [place] [address], [address], [place] tel:[phone] [facility] Hypertensive chronic kidney disease with stage 1 through stage 4 chronic kidney disease, or unspecified chronic kidney diseaseEssent ial (primary) hypertensionA nemia in chronic kidney diseaseSecond johanna hyperparathyr oidism of renal originOther disorders of phosphorus metabolism 0 Lindy LIGHT Dev. [address], [facility], [place], [place], [id number], [place]. tel:[phone] Referring Provider: [address], [place], [address]. tel:[phone] Family History Family Member Type Diagnosis Age At Onset No Information Payers Payer name Insurance type Covered republican ID Authormatia tibarbara(s) [facility] [id number] Social History Type Description Quantity Date Captured Comments Sex Male Smoking Status No Information Chief Complaint And Reason For Visit No Information Plan Of Treatment Date Type Action Status Goal Dietary education for weight gain completed Patient Education Chronic Kidney Disease: After Your Vi~ completed Patient Education Chronic Kidney Disease: After Your Vi~ completed History Of Present Illness Encounter Date Complaint History Of Joshua wu Illness Acute Renal Failure The symptoms began suddenly. The severity has been described as being mild. It is currently getting worse. Context/Risk factors include: CKD and hypertension. Associated symptoms include: anorexia, decreased appetite and fatigue. Pertinent negatives include a lack of the following symptoms: abdominal pain, arthritis, ankle swelling, change in urine color, decreased urine output, diarrhea, dizziness, dyspnea, dysuria, edema, fever, hematuria, incontinence, nausea, nocturia, rash and vomiting. Additional information: Admitted to [facility] in 09/15 for elevated cr. Use to see Nephrology in [place] and was noted to be CKD 5, underwent AVF placement in 08/15. Chronic Kidney Disease The moncho nt's disease began gradually. The severity of symptoms due to the patient's CKD is currently rated severe/10 (10=most severe). The patient's CKD is currently getting worse. Relevant disease context/risk factors include: age over 60, male gender, high salt intake and hypertension. Currently the patient's associated symptoms include: decreased appetite and fatigue. Pertinent negatives include a lack of the following symptoms: ankle swelling, decreased urine output, dysuria, dyspnea, hematuria, incontinence, nausea, nocturia, rash and vomiting. Has a nice right AVF Chronic Kidney Disease The moncho wu's disease began gradually. The severity of symptoms due to the patient's CKD is currently rated severe/10 (10=most severe). The patient's CKD is currently stable. Relevant disease context/risk factors include: age over 60, male gender, high salt intake and hypertension. Pertinent negatives include a lack of the following symptoms: ankle swelling, decreased appetite, dribbling, dyspnea, fatigue, hematuria, nausea and rash. Has a nice right AVF Acute Renal Failure The symptoms began suddenly. The severity has been described as being mild. It is currently improving. Context/Risk factors include: CKD and hypertension. Pertinent negatives include a lack of the following symptoms: abdominal pain, arthritis, anorexia, ankle swelling, change in urine color, decreased appetite, diarrhea, dizziness, dribbling, dyspnea, edema, fatigue, fever, hematuria, nausea and rash. Additional information: Admitted to [facility] in 09/15 for elevated cr. Use to see Nephrology in [place] and was noted to be CKD 5, underwent AVF placement in 08/15. Instructions Date Instruction Additional Infor suze Dietary education for weight gai n Related to Underweight Kidney Basics Related to Acute kidney injury Low Sodium Diet Related to Acute kidney injury Assessments Type Assessment Date No Information
--- OUTSIDE RECORDS SUMMARY | 2023-12-27 19:00 | XMS_ITS | Continuity of Care Document ---
Author Organization [facility] Address [address] [place] [address] Care Team Providers Care Hay Sorter Name Role Phone Ciara oRblero MD Unavailable Unavailable Allergies, Adverse Reactions, Alerts Substance Reaction Status Criticality No Known Allergies Active No Inform ation Medications Medication Instructions Dosage Effective Dates (start - stop) Status Comments Tylophen 500 mg capsule take 1 capsule b y oral route every 6 hours as needed 500 MG - Active alprazolam 0.25 mg tablet take 1 tablet by oral route every day 0.25 MG - Active amlodipine 10 mg tablet take 1 tablet by oral route every day 10 MG - Active Baqsimi 3 mg/actuation nasal spray spray 1 spray by intranasal route into one nostril once may repeat dose in 15 minutes if inadequate response 3 MG - Active bisacodyl 10 mg rectal suppository insert 1 suppository by rectal route every day as needed for constipation 10 MG - Active buspirone 5 mg tablet take 1 tablet by oral route 3 times every day 5 MG - Active cholecalciferol (vitamin D3) 125 mcg (5,000 unit) capsule - Active famotidine 20 mg tablet take 1 tablet by oral route every day 20 MG - Active gabapentin 100 mg capsule take 1 capsule by oral route 3 times every day 100 MG - Active Humalog Roger KwikPen (U-100) 100 unit/mL subcutaneous half-unit pen inject by subcutaneous route as per insulin protocol 0.00 - Active Keppra 500 mg tablet take 1 tablet by oral route 2 times every day 500 MG - Active Lexapro 20 mg tablet take 1 tablet by oral route every day 20 MG - Active loratadine 10 mg tablet take 1 tablet by oral route every day 10 MG - Active methimazole 5 mg tablet take 1 tablet by oral route every day 5 MG - Active midodrine 10 mg tablet take 1 tablet by oral route 3 times every day as needed 10 MG - Active sennosides 8.6 mg-docusate sodium 50 mg tablet take 1 tablet by oral route 2 times every day 1 tablet - Active sevelamer carbonate 800 mg tablet take 1 tablet by oral route 3 times every day with food as needed 800 MG - Active tramadol 50 mg tablet take 1 tablet by oral route every 6 hours as needed 50 MG - Active trazodone 50 mg tablet take 1.5 tablet b y oral route every day at bedtime 75 MG - Active Vitamin B-1 50 mg tablet - Active Procedures Procedure Date Ecg-routine 12 Lead; Intrpt & 4 Noninvasv Stdy-up/lo Extm Art, Pro F/u Nursing Facility Care-Moderate Compl exity Initial SNF, Comp H&P, Moderate 023 Dialysis Circ Cath/Plasty Angioplasty Vein; Initial Vein Intro Needle/intracath; Extrem US GUIDE, VASCULAR ACCESS Mod Sed Same Phys;Initial 15 Min 2022 Offic/outpt E&m New Mod-hi Advance Directives Directive Yes / No Effective Date File Name No Information Encounters Encounter Description Practice Location Reason(s) For Visit Diagnoses Date Provider Providers Copied on Encounter [facility], [address] [place] [address], [address], [facility] No Information 4 Annika Urbina. [address] [place] [address], [address], [address], [place]. tel:[phone] Referring Provider: Jose Cano MD, [address] [facility], [place], [address]. tel:[phone] [facility], [address] [place] [address], [address], [place] [facility] No Information 3 Fina Lange. [address] [facility], [address], [place], [address], [place]. tel:[phone] Referring Provider: Nazario Harden, [address] [place] [address] [address], [place], [address]. tel:[phone] F/u Nursing Facility Care-Moderat e Complexity [facility], [address] [place] [address], [address], [place] [facility] No Information 3 Ruiz Brock. [address], [address], [address], [place]. tel:[phone] Referring Provider: Sudhir Jackman, [address] [place] [address] [address], [facility] [address], [place], [address]. tel:[phone] Initial SNF, Comp H&P, Moderate [facility], [address] [place] [address], [address], [place] [facility] No Information 3 Ruiz Brock. [address], [address], [address], [place]. tel:[phone] Referring Provider: Sudhir Jackman, [address] [place] [address] [address], [facility] [address], [place], [address]. tel:[phone] [facility], [address] [place] [address], [address], [place] [facility] No Information 3 Mandy Ruy. [address], [address], [address], [place]. tel:[phone] Referring Provider: Ruy Galvan, [address] [place] [address], [address]. tel:[phone] Offic/outpt E&m New Mod-[facility], [address] [place] [address], [address], [place] [facility], [address] dialysis access increased pressure (chief complaint) Cardiovasc ular Review (chief complaint) Malfunction of arteriovenou s dialysis fistula, initial encounterEss ential (primary) hypertension Mixed hyperlipidem iaType 2 diabetes mellitus with chronic kidney disease on chronic dialysis, with long-term current use of insulinEnd stage renal diseaseLong term (current) use of insulinDepen dence on renal dialysis 3 Baqai Ruy. [address], [address] [place], [address], [place]. tel:[phone] Referring Provider: Ivan Owen, [address], [place], [address]. tel:[phone] Family History Family Member Type Diagnosis Age At Onset Problem No family histor y of Coronary artery disease, premature Payers Payer name Insurance type Covered alliance party ID Mercedez francis(s) [facility] [id number] Social History Type Description Quantity Date Captured Comments Sex Male Smoking Status No Information Chief Complaint And Reason For Visit No Information Reason For Referral Reason For Referral No Information History Of Present Illness Encounter Date Complaint History Of Prese nt Illness dialysis access increased pressu re 67 y/o male referred to me for evaluation of his RUE AVF. He was referred by his city mail carrier for prolonged bleeding and increased venous pressure. He was referred to me for evaluation and treatment recommendations. Cardiovascular Review He has had no chest discomfort suggestive of ischemia. The patient denies orthopnea, PND, YIN, or edema. Mr. Sullivan has not had palpitations, syncope or near syncope. He denies claudication. There is no discoloration or ulceration of the lower extremities. He has had no TIA or stroke-like symptoms. Functional Status Date Functional Assessmen t No Information Instructions Date Instruction Additional Infor mation No Information Assessments Type Assessment Date No Information Patient Care Teams Name Effective Dates (start - stop) Status Members No Information
--- OUTSIDE RECORDS SUMMARY | 2025-05-18 19:00 | XMS_ITS | Continuity of Care Document ---
Author Organization [facility] Address [address] [place] [address] Phone Care Team Providers Care Fruit Or Nut Farmer Name Role Phone Ha LIGHT, FACC, Yasmine Unavailable Unavailab le Procedures Procedure Date ELECTROCARDIOGRAM REPORT Advance Directives Directive Yes / No Effective Date File Name No Information Encounters Encounter Description Practice Location Reason(s) For Visit Diagnoses Date Provider Providers Copied on Encounter [facility] , [address] [place] [address], [id number], tel:[phone] [facility] No Information Ha Underwood. [address] [place] [address], [id number], . tel:[phone] Referring Provider: Yasmine Bonner, [address] [place] [address], [place], [address]. tel:[phone] Family History Family Member Type Diagnosis Age At Onset No Information Payers Payer name Insurance type Covered constitution party ID Authoriza tion(s) No Information Social History Type Description Quantity Date Captured Comments Sex Male Smoking Status No Information Chief Complaint And Reason For Visit No Information Reason For Referral Reason For Referral No Information History Of Present Illness Encounter Date Complaint History Of Prese nt Illness No Information Functional Status Date Functional Assessmen t No Information Instructions Date Instruction Additional Infor mation No Information Assessments Type Assessment Date No Information Patient Care Teams Name Effective Dates (start - stop) Status Members No Information
--- NOTE | ~2025-09-17 | CT_ITS ---
CT cervical spine wo con HISTORY: GLF COMPARISON: None TECHNIQUE: Axial images of the cervical spine were obtained. Multiplanar reconstruction in the coronal, sagittal and axial reformats to evaluate for cervical fracture. FINDINGS: The images demonstrate no acute fracture or paravertebral soft tissue swelling. Degenerative changes with anterior bridging osteophytes within the cervical spine C5-C6 and C7-T1. The visualized aspect of the upper lungs are clear. IMPRESSION: Degenerative changes with disc space narrowing and anterior osteophytes are noted. No acute compression fracture or subluxation All CT scans at this facility are performed using low dose modulation techniques as appropriate to perform exam including the following: automated exposure control; adjustment of the mA and/or kV according to patient size (this includes techniques or standardized protocols for targeted exams where does is matched to indication/reason for exam; i.e. extremities or head); use of iterative reconstruction technique). Reviewed, dictated and finalized at location S. IMPRESSION: Degenerative changes with disc space narrowing and anterior osteophytes are not ed. No acute compression fracture or subluxation All CT scans at this facility are performed using low dose modulation techniqu es as appropriate to perform exam including the following: automated exposure c ontrol; adjustment of the mA and/or kV according to patient size (this includes techniques or standardized protocols for targeted exams where does is matched to indication/reason for exam; i.e. extremities or head); use of iterative golden nstruction technique).
--- NOTE | ~2025-09-17 | CT_ITS ---
CT brain wo con HISTORY:GLF COMPARISON: None. TECHNIQUE: Axial images were obtained of the head without intravenous contrast. FINDINGS: No acute intracranial hemorrhage, mass effect or midline shift. No extra-axial fluid collections. There is generalized atrophy and chronic white matter microangiopathic changes.Visualized paranasal sinuses and mastoid air cells are clear. IMPRESSION: No acute intracranial hemorrhage or extra axial fluid collections. Generalized atrophy and chronic white matter microangiopathic changes. All CT scans at this facility are performed using low dose modulation techniques as appropriate to perform exam including the following: automated exposure control; use of iterative reconstruction technique; adjustment of the mA and/or kV according to patient size (this includes techniques or standardized protocols for targeted exams where dose is matched to indication/reason for exam). Reviewed, dictated and finalized at location S. IMPRESSION: No acute intracranial hemorrhage or extra axial fluid collections. Generalized atrophy and chronic white matter microangiopathic changes. All CT scans at this facility are performed using low dose modulation techniqu es as appropriate to perform exam including the following: automated exposure c ontrol; use of iterative reconstruction technique; adjustment of the mA and/or kV according to patient size (this includes techniques or standardized protocol s for targeted exams where dose is matched to indication/reason for exam).
--- NOTE | ~2025-09-17 | CT_ITS ---
CT chest abdomen pelvis w con HISTORY: R sided abd pain and lower back pain after a fall . COMPARISON: None. TECHNIQUE: Axial images of the chest, abdomen and pelvis were obtained without and with infusion of 100 Isovue 300. FINDINGS: CT CHEST: The examination demonstrates posterior right upper and bilateral posterior lower lobes with interstitial groundglass opacities. There is No pathologically enlarged hilar or mediastinal lymphadenopathy is seen. Cardiac size and mediastinal configuration are normal in appearance. The pulmonary artery and thoracic aorta are normal in caliber and patency. There is a sclerotic lesion in the left posterior vertebral body at T11 and T4 vertebral body. The visualized organs of the upper abdomen are unremarkable. IMPRESSION: Interstitial groundglass opacities are noted bilaterally. There are sclerotic lytic changes in T4 and T11 vertebral body. Follow-up bone scan is recommended to exclude metastases. No pathologically enlarged mediastinal lymphadenopathy is noted. CT abdomen and pelvis with contrast: The liver parenchyma is unremarkable. No intrahepatic mass or ductal dilatation is evident. Cholelithiasis is noted. The pancreas and spleen are normal in appearance. The adrenal glands are symmetric in size. The kidneys demonstrate symmetric uptake and excretion of contrast. No cystic mass is evident. There is no solid mass. There is no hydronephrosis. Evaluation of the stomach and bowel loops are limited due to lack of oral contrast. Colonic diverticulosis without evidence of acute diverticulitis. The bladder and rectum are normal. Prostate gland is enlarged. No free intraperitoneal fluid or air is evident. There is no significant retroperitoneal lymphadenopathy. The aorta, visceral vessels and renal arteries demonstrate normal caliber and patency. IMPRESSION: Colonic lytic changes within T4 and T11 vertebral body. Colonic diverticulosis without evidence of acute diverticulitis. Prostatomegaly. All CT scans at this facility are performed using low dose modulation techniques as appropriate to perform exam including the following: automated exposure control; use of iterative reconstruction technique; adjustment of the mA and/or kV according to patient size (this includes techniques or standardized protocols for targeted exams where dose is matched to indication/reason for exam) Reviewed, dictated and finalized at location S. IMPRESSION: Interstitial groundglass opacities are noted bilaterally. There are sclerotic lytic changes in T4 and T11 vertebral body. Follow-up bone scan is recommended to exclude metastases. No pathologically enlarged mediastinal lymphadenopathy is noted. CT abdomen and pelvis with contrast: The liver parenchyma is unremarkable. No intrahepatic mass or ductal dilatation is evident. Cholelithiasis is noted. The pancreas and spleen are normal in surya earance. The adrenal glands are symmetric in size. The kidneys demonstrate symmetric uptake and excretion of contrast. No cystic m ass is evident. There is no solid mass. There is no hydronephrosis. Evaluation of the stomach and bowel loops are limited due to lack of oral contr ast. Colonic diverticulosis without evidence of acute diverticulitis. The bladder and rectum are normal. Prostate gland is enlarged. No free intraper itoneal fluid or air is evident. There is no significant retroperitoneal lymph adenopathy. The aorta, visceral vessels and renal arteries demonstrate normal caliber and p atency. IMPRESSION: Colonic lytic changes within T4 and T11 vertebral body. Colonic diverticulosis without evidence of acute diverticulitis. Prostatomegaly. All CT scans at this facility are performed using low dose modulation techniqu es as appropriate to perform exam including the following: automated exposure c ontrol; use of iterative reconstruction technique; adjustment of the mA and/or kV according to patient size (this includes techniques or standardized protocol s for targeted exams where dose is matched to indication/reason for exam)
[2025-09-17 16:17] VITALS: BP 145/52; PULSE 71; RESP 16; O2SAT 100
[2025-09-17 17:30] VITALS: BP 145/52; PULSE 60; RESP 17; O2SAT 99
[2025-09-17 18:00] VITALS: BP 140/54; PULSE 61; RESP 16; O2SAT 98
--- NOTE | 2025-09-17 18:00 | ED_ITS ---
HPI - General Adult General Chief complaint: Back Pain/Injury <Bradley Mendez MD - Last Filed: 09/17/25 18:39> Stated complaint: lower back pain after fall <Bradley Mendez MD - Last Filed: 09/17/25 18:39> Time Seen by Provider: 09/17/25 16:49 <Bradley Mendez MD - Last Filed: 09/17/25 18:39> History of Present Illness HPI narrative: This is a 70-year-old male sent from the halfway after ground level fall. Patient has dementia and he is a poor historian. Evidently he tripped and fell earlier today landing on his right side. He is complaining of right- sided rib pain and back pain. No other complaints. Denies head trauma. Denies loss of consciousness, blood thinners. Patient declined pain medication. < Bradley Mendez MD - Last Filed: 09/17/25 18:39> Related Data Allergies/adverse reactions: Allergies Allergy/AdvReac Type Severity Reaction Status Date / Time No Known Allergies Allergy Verified 05/21/25 10:35 <Bradley Mendez MD - Last Filed: 09/17/25 18:39> [facility] Past Medical History Medical History: Medical History (Updated 09/17/25 @ 18:39 by Bradley Mendez MD) Diabetes Hyperlipidemia Hypertension End stage renal disease <Bradley Mendez MD - Last Filed: 09/17/25 18:39> Exam 2 Narrative: APPEARANCE: No apparent distress. A&O x1, hard of hearing Head: atraumatic. EYES: EOMI, NOSE: Atraumatic NECK: Trachea midline RESPIRATORY: No increased rate of breathing clear to auscultation CARDIOVASCULAR: RRR, no peripheral edema ABDOMINAL: Non-distended soft nontender MUSCULOSKELETAl: Head to toe trauma exam performed with tenderness over the right anterior ribcage and over to the low thoracic high lumbar spine. NEURO: Alert. Moving 4/4 extremities to command SKIN:: Warm, dry. Normal color PSYCHIATRIC: Normal affect <Bradley Mendez MD - Last Filed: 09/17/25 18:39> Course Course Emergency Course: Patient care signed over by previous provider pending completion of CT scans and reassessment. Patient CT scan showed no traumatic injuries. Incidental findings relayed to the patient and placed on discharge instructions. Patient had improvement in pain control after [place]. Awake and doing well with normal vital signs. Laboratory studies show chronic end-stage renal disease and he is already on hemodialysis. Patient will be safe for transfer back to his skilled rehab/nursing facility for continued care. <Jeremy Ramos MD - Last Filed: 09/17/25 23:18> Vital Signs Vital signs: Vital Signs Pulse Rate 71 09/17/25 16:17 Respiratory Rate 16 09/17/25 16:17 Blood Pressure 145/52 H 09/17/25 16:17 Pulse Oximetry 100 09/17/25 16:17 Oxygen Delivery Room Air 09/17/25 16:17 Temperature 36.3 C L 09/17/25 22:38 Pulse Rate 62 09/17/25 22:38 Respiratory Rate 18 09/17/25 22:38 Blood Pressure 179/53 H 09/17/25 22:38 Pulse Oximetry 100 09/17/25 22:38 Oxygen Delivery Room Air 09/17/25 16:17 <Bradley Mendez MD - Last Filed: 09/17/25 18:39> Vital Signs Pulse Rate 71 09/17/25 16:17 Respiratory Rate 16 09/17/25 16:17 Blood Pressure 145/52 H 09/17/25 16:17 Pulse Oximetry 100 09/17/25 16:17 Oxygen Delivery Room Air 09/17/25 16:17 Temperature 36.3 C L 09/17/25 22:38 Pulse Rate 62 09/17/25 22:38 Respiratory Rate 18 09/17/25 22:38 Blood Pressure 179/53 H 09/17/25 22:38 Pulse Oximetry 100 09/17/25 22:38 Oxygen Delivery Room Air 09/17/25 16:17 <Jeremy Ramos MD - Last Filed: 09/17/25 23:18> Medical Decision Making MDM Narrative Medical decision making narrative: -Course: 70-year-old male with dementia presenting after ground level fall. Patient has pain to the anterior right ribcage low thoracic/high lumbar area. CT head neck chest abdomen pelvis ordered as he is a poor historian with dementia. -DDX includes but is not limited to: Fracture rib, rib contusion, intra- abdominal pathology, compression fracture -Co-morbidities complicating care: Dementia <Bradley Mendez MD - Last Filed: 09/17/25 18:39> Vital Signs Vital Signs: Vital Signs Pulse Rate 71 09/17/25 16:17 Respiratory Rate 16 09/17/25 16:17 Blood Pressure 145/52 H 09/17/25 16:17 Pulse Oximetry 100 09/17/25 16:17 Oxygen Delivery Room Air 09/17/25 16:17 Temperature 36.3 C L 09/17/25 22:38 Pulse Rate 62 09/17/25 22:38 Respiratory Rate 18 09/17/25 22:38 Blood Pressure 179/53 H 09/17/25 22:38 Pulse Oximetry 100 09/17/25 22:38 Oxygen Delivery Room Air 09/17/25 16:17 <Bradley Mendez MD - Last Filed: 09/17/25 18:39> Vital Signs Pulse Rate 71 09/17/25 16:17 Respiratory Rate 16 09/17/25 16:17 Blood Pressure 145/52 H 09/17/25 16:17 Pulse Oximetry 100 09/17/25 16:17 Oxygen Delivery Room Air 09/17/25 16:17 Temperature 36.3 C L 09/17/25 22:38 Pulse Rate 62 09/17/25 22:38 Respiratory Rate 18 09/17/25 22:38 Blood Pressure 179/53 H 09/17/25 22:38 Pulse Oximetry 100 09/17/25 22:38 Oxygen Delivery Room Air 09/17/25 16:17 <Jeremy Ramos MD - Last Filed: 09/17/25 23:18> Lab Data Result diagrams: 09/17/25 19:05 09/17/25 19:05 <Bradley Mendez MD - Last Filed: 09/17/25 18:39> Labs: Lab Results 09/17/25 Range/Units 19:05 WBC 8.6 (4.5-10.0) K/mm3 RBC 2.66 L (4.6-6.20) M/mm3 Hgb 8.1 L (14.0-18.0) g/dL Hct 25.2 L (42.0-52.0) % MCV 94.7 (80-100) fl MCH 30.5 (26-34) pg MCHC 32.1 (32-36) g/dl RDW 15.7 H (11.5-14.5) % Plt Count 169 (150-375) k/mm3 MPV 10.5 H (7.4-10.4) fl Immature Gran % (Auto) 0.6 H (0-0.5) % Neut % (Auto) 78.6 H (45.5-73.1) % Lymph % (Auto) 8.9 L (18.3-44.2) % [place] % (Auto) 8.6 H (2.6-8.5) % Eos % (Auto) 3.1 (0-4.4) % Baso % (Auto) 0.2 (0.2-1.2) % Lymph # (Auto) 0.77 L (0.9-3.2) K/mm3 [place] # (Auto) 0.7 H (0.1-0.6) K/mm3 Eos # (Auto) 0.3 (0-0.3) K/mm3 Baso # (Auto) 0.0 (0.0-0.1) K/mm3 Abs Immat Gran (auto) 0.05 H (0.00-0.031) K/mm3 Absolute Neuts (auto) 6.8 H (1.3-6.7) K/mm3 Absolute Nucleated RBC 0.000 (0.0-0.012) K/mm3 Nucleated RBC % 0.0 (0.0-0.2) % Sodium 134 L (137-145) mmol/L Potassium 4.6 (3.4-5.0) mmol/L Chloride 93 L (98-107) mmol/L Carbon Dioxide 38 H (22-30) mmol/L Anion Gap 3 L (4-12) mmol/L BUN 30 H (9-20) mg/dL Creatinine 4.20 H (0.7-1.3) mg/dL Estim Creat Clear Calc 13 ml/min Estimated GFR 14 L (59 - ) Glucose 73 (65-110) mg/dL Calcium 8.2 L (8.4-10.2) mg/dL Total Bilirubin 0.2 (0.2-1.3) mg/dL AST 19 (17-59) U/L ALT 13 (6-50) U/L Alkaline Phosphatase 73 (38-126) U/L Total Protein 6.2 L (6.3-8.2) g/dL Albumin 3.6 (3.5-5.1) g/dL <Bradley Mendez MD - Last Filed: 09/17/25 18:39> Lab Results 09/17/25 Range/Units 19:05 WBC 8.6 (4.5-10.0) K/mm3 RBC 2.66 L (4.6-6.20) M/mm3 Hgb 8.1 L (14.0-18.0) g/dL Hct 25.2 L (42.0-52.0) % MCV 94.7 (80-100) fl MCH 30.5 (26-34) pg MCHC 32.1 (32-36) g/dl RDW 15.7 H (11.5-14.5) % Plt Count 169 (150-375) k/mm3 MPV 10.5 H (7.4-10.4) fl Immature Gran % (Auto) 0.6 H (0-0.5) % Neut % (Auto) 78.6 H (45.5-73.1) % Lymph % (Auto) 8.9 L (18.3-44.2) % [place] % (Auto) 8.6 H (2.6-8.5) % Eos % (Auto) 3.1 (0-4.4) % Baso % (Auto) 0.2 (0.2-1.2) % Lymph # (Auto) 0.77 L (0.9-3.2) K/mm3 [place] # (Auto) 0.7 H (0.1-0.6) K/mm3 Eos # (Auto) 0.3 (0-0.3) K/mm3 Baso # (Auto) 0.0 (0.0-0.1) K/mm3 Abs Immat Gran (auto) 0.05 H (0.00-0.031) K/mm3 Absolute Neuts (auto) 6.8 H (1.3-6.7) K/mm3 Absolute Nucleated RBC 0.000 (0.0-0.012) K/mm3 Nucleated RBC % 0.0 (0.0-0.2) % Sodium 134 L (137-145) mmol/L Potassium 4.6 (3.4-5.0) mmol/L Chloride 93 L (98-107) mmol/L Carbon Dioxide 38 H (22-30) mmol/L Anion Gap 3 L (4-12) mmol/L BUN 30 H (9-20) mg/dL Creatinine 4.20 H (0.7-1.3) mg/dL Estim Creat Clear Calc 13 ml/min Estimated GFR 14 L (59 - ) Glucose 73 (65-110) mg/dL Calcium 8.2 L (8.4-10.2) mg/dL Total Bilirubin 0.2 (0.2-1.3) mg/dL AST 19 (17-59) U/L ALT 13 (6-50) U/L Alkaline Phosphatase 73 (38-126) U/L Total Protein 6.2 L (6.3-8.2) g/dL Albumin 3.6 (3.5-5.1) g/dL <Jeremy Ramos MD - Last Filed: 09/17/25 23:18> Discharge Plan Discharge Clinical Impression: Fall <Bradley Mendez MD - Last Filed: 09/17/25 18:39> Patient Disposition: Home <Bradley Mendez MD - Last Filed: 09/17/25 18:39> Condition: Stable <Bradley Mendez MD - Last Filed: 09/17/25 18:39> Instructions: Antibiotic Form, Fall Prevention (ED) <Bradley Mendez MD - Last Filed: 09/17/25 18:39> Additional Instructions: Please return to the ED if he develops any new or worsening symptoms. CT scan shows no traumatic injuries. There are some incidental findings including lytic lesions in the T4 and T11 spine without fracture as well as enlarged prostate gland. Follow-up with regular primary care provider regarding these findings and return with any emergencies. <Bradley Mendez MD - Last Filed: 09/17/25 18:39> Patient Language: Armenian <Bradley Mendez MD - Last Filed: 09/17/25 18:39> Follow-up/Referrals: Brianne,MD Pee [Primary Care Provider, Unknown] <Bradley Mendez MD - Last Filed: 09/17/25 18:39> Time of Disposition: 22:01 <Bradley Mendez MD - Last Filed: 09/17/25 18:39> 22:01 <Jeremy Ramos MD - Last Filed: 09/17/25 23:18>
[2025-09-17 19:03] VITALS: BP 59/58; PULSE 60; RESP 18; O2SAT 100
[2025-09-17 19:11] LABS: Hematocrit 25.2 % (42.0-52.0); Hemoglobin 8.1 g/dL (14.0-18.0); Immature Granulocyte Percent A 0.6 % (0-0.5); Lymphocytes Absolute Auto 0.77 K/mm3 (0.9-3.2); Mean Corpuscular HGB Conc 32.1 g/dl (32-36); Mean Corpuscular Hemoglobin 30.5 pg (26-34); Mean Corpuscular Volume 94.7 fl (80-100); Nucleated Red Blood Cells Absolute Auto 0.000 K/mm3 (0.0-0.012); Nucleated Red Blood Cells Perc 0.0 % (0.0-0.2); Platelet Count Result 169 k/mm3 (150-375); Red Blood Count 2.66 M/mm3 (4.6-6.20); White Blood Count 8.6 K/mm3 (4.5-10.0)
[2025-09-17 19:21] LABS: Alanine Aminotransferase 13 U/L (6-50); Albumin Level 3.6 g/dL (3.5-5.1); Alkaline Phosphatase 73 U/L (38-126); Anion Gap 3 mmol/L (4-12); Aspartate Amino Transferase 19 U/L (17-59); Bilirubin,Total 0.2 mg/dL (0.2-1.3); Blood Urea Nitrogen 30 mg/dL (9-20); Calcium 8.2 mg/dL (8.4-10.2); Carbon Dioxide 38 mmol/L (22-30); Chloride 93 mmol/L (98-107); Estimated CRCL calculation 13 ml/min; Estimated Glomerular Filt Rate 14; Glucose 73 mg/dL (65-110); Potassium 4.6 mmol/L (3.4-5.0); Sodium 134 mmol/L (137-145); Total Protein 6.2 g/dL (6.3-8.2)
--- NOTE | 2025-09-17 20:08 | PC.NURSE ---
Hiren MACKEY updated on patient condition
--- OUTSIDE RECORDS SUMMARY | 2025-09-17 20:27 | XMS_ITS | Clinical Summary ---
Author Organization [facility] Address [address] [place] [address] Care Team Providers Care Psychological Science Professor Name Role Phone Unknown, Notinfile Primary Care Provider Unavail able Allergies No known active allergies Medications aspirin 81 mg enteric coated tablet Take 1 tablet (81 mg total) by mouth daily 05/25/20 13 Active cholecalciferol (VITAMIN D-3) 50,000 unit capsule Take 1 capsule (50,000 Units total) by mouth once a week Sundays 0 02/11/20 24 Active Baqsimi 3 mg/actuation spray,non-aerosol Administer 1 spray into one nostril as needed 0 01/02/20 24 Active LANTUS 100 unit/mL (3 mL) pen for injection Inject 20 Units under the skin 2 (two) times a day 0 01/22/20 24 Active levETIRAcetam (KEPPRA) 500 mg tablet Take 1 tablet (500 mg total) by mouth daily Take an additional 500mg after each dialysis session Active meclizine (ANTIVERT) 25 mg tablet Take 0.5 tablets (12.5 mg total) by mouth 2 (two) times a day 05/25/20 13 Active ondansetron ODT (ZOFRAN-ODT) 4 mg disintegrating tablet Take 1 tablet (4 mg total) by mouth every 4 (four) hours as needed for nausea 12/13/19 17 Active bisacodyL (DULCOLAX) 10 mg suppositoryIndica tions:constipatio n Insert 1 suppository (10 mg total) into the rectum daily as needed for constipation Active fluticasone propionate (FLONASE) 50 mcg/actuation nasal spray Administer 1 spray into each nostril daily Active senna-docusate (PERICOLACE) 8.6-50 mg Take 2 tablets by mouth nightly Active vitamin B complex-vitamin C-folic acid (NEPHRO-FELIZ) 0.8 mg tabletIndications :Vitamin Deficiency Prevention Take 0.8 mg by mouth daily Active bismuth subsalicylate (PEPTO-BISMOL) suspension Take 30 mL by mouth every 12 (twelve) hours as needed for indigestion Active hydrocortisone 0.5 % cream Apply topically 2 (two) times a day Active calcium acetate,phosphat bind, (PHOSLO) 667 mg capsule Take 2 capsules (1,334 mg total) by mouth 3 (three) times a day with meals 12/25/19 25 Active FLUoxetine (PROzac) 20 mg capsule Take 1 capsule (20 mg total) by mouth daily 02/22/20 25 Active hydrALAZINE (APRESOLINE) 25 mg tablet Take 1 tablet (25 mg total) by mouth 3 (three) times a day 02/22/20 25 Active metoprolol tartrate (LOPRESSOR) 25 mg immediate release tablet Take 0.5 tablets (12.5 mg total) by mouth 2 (two) times a day 07/01/20 13 Active tamsulosin (FLOMAX) 0.4 mg extended release capsule Take 1 capsule (0.4 mg total) by mouth daily 02/22/20 25 Active melatonin 5 mg tablet Take 1 tablet (5 mg total) by mouth nightly Active epoetin sonya-epbx (RETACRIT) (4,000 unit/mL) solution Infuse 1 mL (4,000 Units total) IV 3 (three) times a week 05/05/20 25 Active loperamide (IMODIUM) 2 mg capsule Take 1 capsule (2 mg total) by mouth 2 (two) times a day as needed Active calcitRIOL (ROCALTROL) 0.25 mcg capsule Take 1 capsule (0.25 mcg total) by mouth daily Active busPIRone (BUSPAR) 15 mg tabletIndications :Generalized Anxiety Disorder Take 1 tablet (15 mg total) by mouth 3 (three) times a day 90 tablet 11 08/28/20 25 026 Active QUEtiapine (SEROquel) 25 mg tablet Take 1 tablet (25 mg total) by mouth 2 (two) times a day 60 tablet 08/28/20 25 025 Active QUEtiapine (SEROquel) 25 mg tablet Take 3 tablets (75 mg total) by mouth nightly 90 tablet 08/28/20 25 Active insulin lispro (HumaLOG, ADMELOG) 100 unit/mL pen for injection Inject 1-5 units under the skin 3 (three) times a day with meals. Blood glucose mg/dL 150-199: 1 unit, 200-249: 2 units, 250-299: 3 units, 300-349: 4 units, 350 or greater: 5 units. Notify provider for blood glucose greater than 299 mg/dL. Refer to After Visit Summary for Sliding Scale Insulin Instructions. 15 mL 1 08/28/20 25 Active amLODIPine (NORVASC) 10 mg tablet Take 1 tablet (10 mg total) by mouth as directed Monday, , Monday, Monday 025 Discontinu ed(Alterna te therapy) famotidine (PEPCID) 20 mg tablet Take 1 tablet (20 mg total) by mouth with lunch 0 02/04/20 24 025 Discontinu ed(Therapy completed) gabapentin (NEURONTIN) 100 mg capsule Take 1 capsule (100 mg total) by mouth 3 (three) times a day 01/12/20 21 025 Discontinu ed(Therapy completed) methIMAzole (TAPAZOLE) 5 mg tablet Take 1 tablet (5 mg total) by mouth daily 0 01/23/20 24 025 Discontinu ed(Therapy completed) sevelamer (RENVELA) 800 mg tablet 1 tablet (800 mg total) 3 (three) times a day with meals 0 02/11/20 24 025 Discontinu ed(Alterna te therapy) thiamine (VITAMIN B-1) 50 mg tablet Take 2 tablets (100 mg total) by mouth daily 025 Discontinu ed(Therapy completed) busPIRone (BUSPAR) 5 mg tabletIndications :Generalized Anxiety Disorder Take 2 tablets (10 mg total) by mouth 3 (three) times a day 025 Discontinu ed(Stop Taking at Discharge) midodrine (PROAMATINE) 10 mg tablet Take 1 tablet (10 mg total) by mouth once Monday 025 Discontinu ed(Alterna te therapy) QUEtiapine (SEROquel) 25 mg tablet Take 1 tablet (25 mg total) by mouth 3 (three) times a day Discontinu ed(Stop Taking at Discharge) levETIRAcetam (KEPPRA) 750 mg tablet Take 1 tablet (750 mg total) by mouth nightly Discontinu ed(Alterna te therapy) ALPRAZolam (XANAX) 0.25 mg tablet Take 1 tablet (0.25 mg total) by mouth daily as needed for anxiety for up to 7 days 7 tablet 03/29/20 24 Discontinu ed(Stop Taking at Discharge) traMADoL (ULTRAM) 50 mg tablet Take 1 tablet (50 mg total) by mouth every 8 (eight) hours as needed for pain for up to 5 days 15 tablet 03/29/20 24 Discontinu ed(Stop Taking at Discharge) insulin lispro (HumaLOG, ADMELOG) 100 unit/mL vial for injection Inject 5 Units under the skin Discontinu ed(Stop Taking at Discharge) polyvinyl alcohol-povidone (REFRESH CLASSIC) 1.4-0.6 % dropperette Administer 1 drop into affected eye(s) 3 (three) times a day as needed 05/05/20 Discontinu ed(Therapy completed) hydrALAZINE (APRESOLINE) 10 mg tabletIndications :hypertension Take 1 tablet (10 mg total) by mouth every 6 (six) hours as needed (Hypertension) Discontinu ed(Stop Taking at Discharge) amoxicillin-clavu lanate (AUGMENTIN) 875-125 mg per tabletIndications :Abdominal/Pelvic Infection Take 1 tablet (875 mg of amoxicillin total) by mouth every 12 (twelve) hours for 4 days 8 tablet 08/28/20 25 Active Problems Problem Noted Date Diagnosed Date Altered mental status 08/27/2025 Fluid overload due to transfusion of blood 08/26 Abdominal pain 08/25/2025 Dialysis patient, noncompliant 08/25/2025 Diverticulitis large intesti ne w/o perforation or abscess w/bleeding 08/24/2025 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 [...] (end stage renal disease) on dialysis 03/27 Encounters Date Type Department Care Team Description 08/28/2025 5:26 PM CDT - 08/28/2025 11:59 PM CDT Hospital Encounter [facility] Emergency, Room R Discharge Disposition: Discharge to home or self care 08/24/2025 6:10 PM CDT - 08/28/2025 5:21 PM CDT Hospital Encounter [facility] IMU [address] [place] [address] Jian Alba MD Petters, Ekanga Sunday, MD Shaba, Winnie, MD Kheirkhahan, Nazanin, MD Diverticulitis large intestine w/o perforation or abscess w/bleeding (Primary Dx); Abdominal pain; Fluid overload due to transfusion of blood; Dialysis patient, noncompliant; Altered mental status, unspecified altered mental status type [R41.82] Discharge Disposition: Discharge to intermediate facility from Last 3 Months Medical History Medical History Date Comments Hypertension Seizures (HCC) 03/27/2024 End stage renal disease Diabetes Anxiety disorder Social History Tobacco Use Types Packs/Day Years Used Date Smoking Tobacco: Every Day Cigarettes Tobacco Cessation:Ready to Q uit: Not Asked; Counseling Given: Not Answered Social Connection and Isolation Panel Answer Date Recorded In a typical week, how many times do you talk on the phone with family, friends, or neighbors? Patient unable to answer 08/25/2025 How often do you get togethe r with friends or relatives? Patient unable to answer 08/25/2025 How often do you attend chur ch or tenriism services? Patient unable to answer 08/25/2025 Do you belong to any clubs o r organizations such as spiritism groups, unions, fraternal or athletic groups, or school groups? Patient unable to answer 08/25/2025 How often do you attend meet ings of the clubs or organizations you belong to? Patient unable to answer 08/25/2025 Marital Status Not on file 08/25/2025 Overall Financial Resource Strain (CARDIA) Answe r Date Recorded How hard is it for you to pa y for the very basics like food, housing, medical care, and heating? Patient unable to answer 08/25/2025 Hunger Vital Sign Answer Date Recorded Within the past 12 months, y ou worried that your food would run out before you got the money to buy more. Never true 08/25/20 25 Within the past 12 months, t he food you bought just didn't last and you didn't have money to get more. Never true 08/25/2025 PRAPARE - Transportation Answer Date Re corded In the past 12 months, has l ack of transportation kept you from medical appointments or from getting medications? No 07/29 In the past 12 months, has l ack of transportation kept you from meetings, work, or from getting things needed for daily living? No 08/25/2025 Housing Stability Vital Sign Answer Jon e Recorded In the last 12 months, was t here a time when you were not able to pay the mortgage or rent on time? No 08/25/2025 In the past 12 months, how m any times have you moved where you were living? 0 08/25/2025 At any time in the past 12 m [facility], were you homeless or living in a detention (including now)? No 08/25/2025 [facility] Utilities Answer Date Recorded In the past 12 months has th e electric, gas, oil, or water company threatened to shut off services in your home? No 08/25/2025 Personal Safety Answer Date Recorded Have you ever been in or are you currently in a harmful physical or emotional relationship or is someone making you feel afraid or unsafe? Patient unable to answer 08/24/2025 Sex and Gender Information Value Date Recorded Sex Assigned at Not on file Legal Sex Male 10:37 AM CDT Gender Identity Not on file Sexual Orientation Not on file Obstetrics History Last Filed Vital Signs Vital Sign Reading Time Taken Comments Blood Pressure 145/57 08/28/2025 1:30 PM CDT Pulse 74 08/28/2025 1:30 PM CDT Temperature 36.5 C (97.7 F) 08/28/2025 12:30 PM CDT Respiratory Rate 16 08/28/2025 1:30 PM CDT Oxygen Saturation 100% 08/28/2025 1:30 PM CDT Inhaled Oxygen Concentration - - Weight 58 kg (127 lb 13.9 oz) 08/28/2025 12:30 P M CDT Height 167.6 cm (5' 6) 03/27/2024 12:48 PM CDT Body Mass Index 20.64 03/27/2024 12:48 PM CDT Plan of Treatment Health Maintenance Due Date Last Done Comments Albumin Creatinine Ratio, Urine 1954 Colon Cancer Screening-Colonoscopy 1954 Depression Screening 1954 Foot Exam 1954 Lipid Panel 1954 DTaP/Tdap/Td Vaccine (1 - Tdap) 1965 Pneumococcal vaccine 65+ (1 of 2 - PCV) 1973 Zoster Vaccine (1 of 2) 2004 Well Visit 65+ 2019 Influenza Vaccine (#1) 2025 Hemoglobin A1C 10/26/2025 04/26/2025 Dilated Eye Exam 02/27/2026 02/27/2025 eGFR 08/27/2026 08/27/2025, 09, 08/26/2025, Additional history exists Fall Risk Assessment 08/28/2026 08/28/2025 Abdominal Aortic Aneurysm (A AA) Screen Completed 08/24/2025, 04/27/2025, 05/02/2024, Additional history exists Hepatitis B Screening Completed 08/26/2025 Hepatitis C Screening Completed 08/26/2025, 024 Procedures Procedure Name Priority Date/Time Associated Diagnosis Comments POCT GLUCOSE DEVICE Routine 08/28/2025 5 :08 PM CDT POCT GLUCOSE DEVICE Routine 08/28/2025 1 :16 PM CDT POCT GLUCOSE DEVICE Routine 08/28/2025 7 :59 AM CDT POCT GLUCOSE DEVICE Routine 08/28/2025 1 :58 AM CDT POCT GLUCOSE DEVICE Routine 08/27/2025 8 :11 PM CDT POCT GLUCOSE DEVICE Routine 08/27/2025 5 :25 PM CDT POCT GLUCOSE DEVICE Routine 08/27/2025 1 2:21 PM CDT POCT GLUCOSE DEVICE Routine 08/27/2025 7 :23 AM CDT POCT GLUCOSE DEVICE Routine 08/27/2025 5 :16 AM CDT POCT GLUCOSE DEVICE Routine 08/27/2025 4 :42 AM CDT EGFR Routine 08/27/2025 2:42 AM CDT DIFFERENTIAL AUTO Routine 08/27/2025 2:4 2 AM CDT COMPREHENSIVE METABOLIC PANEL Routine 08/27/2025 2:42 AM CDT CBC WITH AUTO DIFFERENTIAL Routine 08/27/2025 2:42 AM CDT POCT GLUCOSE DEVICE Routine 08/26/2025 1 1:58 PM CDT POCT GLUCOSE DEVICE Routine 08/26/2025 8 :03 PM CDT POCT GLUCOSE DEVICE Routine 08/26/2025 5 :09 PM CDT POCT GLUCOSE DEVICE Routine 08/26/2025 1 1:44 AM CDT SEPSIS LACTATE WITH REFLEX Routine 08/26/2025 11:25 AM CDT EGFR STAT 08/26/2025 10:40 AM CDT COMPREHENSIVE METABOLIC PANEL STAT 08/26/2025 10:40 AM CDT CBC WITHOUT DIFFERENTIAL STAT 08/26/2025 10:[address] HEAD WO CONTRAST Critical/Life-T hreatening 08/26/2025 10:30 AM CDT POCT GLUCOSE DEVICE Routine 08/26/2025 8 :53 AM CDT EGFR Routine 08/26/2025 2:53 AM CDT DIFFERENTIAL AUTO Routine 08/26/2025 2:5 3 AM CDT COMPREHENSIVE METABOLIC PANEL Routine 08/26/2025 2:53 AM CDT CBC WITH AUTO DIFFERENTIAL Routine 08/26/2025 2:53 AM CDT HEPATITIS PANEL, ACUTE STAT 08/26/2025 2:53 AM CDT HEPATITIS B SURFACE ANTIBODY (IMMUNE STATUS) Routine 08/26/2025 2:53 AM CDT POCT GLUCOSE DEVICE Routine 08/26/2025 1 :53 AM CDT POCT GLUCOSE DEVICE Routine 08/25/2025 9 :11 PM CDT POCT GLUCOSE DEVICE Routine 08/25/2025 5 :12 PM CDT POCT GLUCOSE DEVICE Routine 08/25/2025 1 2:30 PM CDT POCT GLUCOSE DEVICE Routine 08/25/2025 7 :46 AM CDT POCT GLUCOSE DEVICE Routine 08/25/2025 2 :02 AM CDT EGFR Routine 08/25/2025 12:20 AM CDT DIFFERENTIAL AUTO Routine 08/25/2025 12: 20 AM CDT MAGNESIUM Routine 08/25/2025 12:20 AM CDT COMPREHENSIVE METABOLIC PANEL Routine 08/25/2025 12:20 AM CDT CBC WITH AUTO DIFFERENTIAL Routine 08/25/2025 12:20 AM CDT TROPONIN T HIGH-SENSITIVITY 6-HOUR Timed 08/25/2025 12:20 AM CDT TROPONIN T HIGH-SENSITIVITY 4-HR Timed 08/24/2025 10:44 PM CDT POCT GLUCOSE DEVICE Routine 08/24/2025 9 :07 PM CDT B ABO / RH CONFIRMATION TESTING STAT 08/24/2025 8:55 PM CDT URINALYSIS, MICROSCOPIC ONLY STAT 08/24/2025 8:24 PM CDT URINALYSIS AND REFLEX TO MICROSCOPIC AND CULTURE STAT 08/24/2025 8:24 PM CDT TROPONIN T HIGH-SENSITIVITY 2-HOUR Timed 08/24/2025 7:51 PM CDT POCT GLUCOSE DEVICE Routine 08/24/2025 7 :49 PM CDT BLOOD CULTURE STAT 08/24/2025 7:29 PM CDT BLOOD CULTURE STAT 08/24/2025 7:18 PM CDT ECG 12-LEAD Routine 08/24/2025 7:01 PM CDT XR CHEST 1 VIEW ED 08/24/2025 7:00 PM CDT XR KUB ED 08/24/2025 7:00 PM CDT ANTIBODY SCREEN STAT 08/24/2025 6:57 PM CDT ABO/RH STAT 08/24/2025 6:57 PM CDT PRO B-TYPE NATRIURETIC PEPTIDE Add-On 08/24/2025 6:57 PM CDT CRP (ACUTE PHASE) Add-On 08/24/2025 6:5 7 PM CDT TYPE AND SCREEN STAT 08/24/2025 6:57 PM CDT APTT STAT 08/24/2025 6:57 PM CDT PROTIME-INR STAT 08/24/2025 6:57 PM CDT SEPSIS LACTATE WITH REFLEX STAT 08/24/2025 6:[address] HEAD WO CONTRAST ED 08/24/2025 6 :[address] CHEST ABDOMEN PELVIS WO CONTRAST ED 08/24/2025 6:45 PM CDT EGFR STAT 08/24/2025 6:22 PM CDT DIFFERENTIAL AUTO STAT 08/24/2025 6:2 2 PM CDT TROPONIN T HIGH-SENSITIVITY SERIES (BASELINE, 2HR, 4HR, 6HR) STAT 08/24/2025 6:22 PM CDT LIPASE STAT 08/24/2025 6:22 PM CDT COMPREHENSIVE METABOLIC PANEL STAT 08/24/2025 6:22 PM CDT CBC WITH AUTO DIFFERENTIAL STAT 08/24/2025 6:22 PM CDT ECG 12-LEAD STAT 08/24/2025 6:10 PM CDT POCT GLUCOSE DEVICE Routine 08/24/2025 6 :10 PM CDT from Last 3 Months Results * POCT glucose (08/28/2025 5:08 PM CDT) Glucose, POC 151 70 - 199 mg/dL Blood 08/28/2025 5:08 PM CDT 08/28/2025 5:08 PM CDT us Charley Underwood MD LAB POCT ORDERABLES - DEV ICE Final Result [facility] ([place]) [address] [facility] [employer] [place] [address] * POCT glucose (08/28/2025 1:16 PM CDT) Glucose, POC 116 70 - 199 mg/dL Blood 08/28/2025 1:16 PM CDT 08/28/2025 1:16 PM CDT us Charley Underwood MD LAB POCT ORDERABLES - DEV ICE Final Result [facility] ([place]) [address] [facility] [employer] [place] [address] * POCT glucose (08/28/2025 7:59 AM CDT) Glucose, POC 82 70 - 199 mg/dL Blood 08/28/2025 7:59 AM CDT 08/28/2025 7:59 AM CDT us Charley Underwood MD LAB POCT ORDERABLES - DEV ICE Final Result [facility] ([place]) [address] [facility] [place] [address] * POCT glucose (08/28/2025 1:58 AM CDT) Glucose, POC 110 70 - 199 mg/dL Blood 08/28/2025 1:58 AM CDT 08/28/2025 1:58 AM CDT us Charley Underwood MD LAB POCT ORDERABLES - DEV ICE Final Result Performing Organization Address City/[facility]/ZIP Co de Phone Number [facility] ([place]) [address] [facility] [place] [address] * POCT glucose (08/27/2025 8:11 PM CDT) Glucose, POC 170 70 - 199 mg/dL Blood 08/27/2025 8:11 PM CDT 08/27/2025 8:11 PM CDT us Charley Underwood MD LAB POCT ORDERABLES - DEV ICE Final Result Performing Organization Address City/[facility]/ZIP Co de Phone Number [facility] ([place]) [address] [facility] [place] [address] * POCT glucose (08/27/2025 5:25 PM CDT) Glucose, POC 107 70 - 199 mg/dL Blood 08/27/2025 5:25 PM CDT 08/27/2025 5:25 PM CDT us Charley Underwood MD LAB POCT ORDERABLES - DEV ICE Final Result [facility] ([place]) [address] [facility] [place] [address] * POCT glucose (08/27/2025 12:21 PM CDT) Glucose, POC 90 70 - 199 mg/dL Blood 08/27/2025 12:2 1 PM CDT 08/27/2025 12:21 PM CDT Charley Underwood MD LAB POCT ORDERABLES - DEV ICE Final Result Performing Organization Address City/[facility]/ZIP Co de Phone Number [facility] ([place]) [address] [facility] [place] [address] * POCT glucose (08/27/2025 7:23 AM CDT) Glucose, POC 95 70 - 199 mg/dL Blood 08/27/2025 7:23 AM CDT 08/27/2025 7:23 AM CDT Charley Underwood MD LAB POCT ORDERABLES - DEV ICE Final Result Performing Organization Address [facility] Co de Phone Number [facility]AL[facility] ([place]) [address] [facility] [place] [address] * POCT glucose (08/27/2025 5:16 AM CDT) Glucose, POC 97 70 - 199 mg/dL Comment:Glu2: RN/ Notified Blood 08/27/2025 5:16 AM CDT 08/27/2025 5:16 AM CDT Charley Underwood MD LAB POCT ORDERABLES - DEV ICE Final Result Performing Organization Address City/[facility] Co de Phone Number [facility] ([place]) [address] [facility] [place] [address] * POCT glucose (08/27/2025 4:42 AM CDT) Glucose, POC 77 70 - 199 mg/dL Comment:Glu2: RN/ Notified Blood 08/27/2025 4:42 AM CDT 08/27/2025 4:42 AM CDT us Charley Underwood MD LAB POCT ORDERABLES - DEV ICE Final Result Performing Organization Address City/[facility]/ZIP Co de Phone Number [facility] ([place]) [address] [facility] [place] [address] * (ABNORMAL) eGFR (08/27/2025 2:42 AM CDT) eGFR 10(L) >=60 mL/min/1. 73 m2 Comment: Interpretive Data [...] interpretive data was last reviewed 2021. Blood 08/27/2025 2:42 AM CDT 08/27/2025 2:55 AM CDT us Micheal Marie MD LAB BLOOD ORDERABLES Fi nal Result [facility] ([place]) [address] [facility] [place] [address] * Differential, auto (08/27/2025 2:42 AM CDT) Neutrophil abs 4.38 1.50 - 6.50 K/cumm Imm gran abs 0.02 0.00 - 0.10 K/cumm [facility] ([place]) Lymphocyte abs 0.84 0.80 - 3.30 K/cumm [facility] ([place]) Monocyte abs 0.46 0.20 - 0.80 K/cumm [facility] ([place]) Eosinophil abs 0.26 0.00 - 0.50 K/cumm [facility] ([place]) Basophil abs 0.04 0.00 - 0.10 K/cumm [facility] ([place]) Neutrophil pct 73.0 % [facility] ([place]) Comment: Interpretive Data Percent cell count reference ranges are not reported, since discordance with absolute values may lead to misinterpretation of CBC data. Current Interpretive Data was last revised on 2018. Imm gran pct 0.3 % [facility] ([place]) Comment: Interpretive Data Percent cell count reference ranges are not reported, since discordance with absolute values may lead to misinterpretation of CBC data. Current Interpretive Data was last revised on 2018. Lymphocyte pct 14.0 % [facility] ([place]) Comment: Interpretive Data Percent cell count reference ranges are not reported, since discordance with absolute values may lead to misinterpretation of CBC data. Current Interpretive Data was last revised on 2018. Monocyte pct 7.7 % [facility] ([place]) Comment: Interpretive Data Percent cell count reference ranges are not reported, since discordance with absolute values may lead to misinterpretation of CBC data. Current Interpretive Data was last revised on 2018. Eosinophil pct 4.3 % [facility] ([place]) Comment: Interpretive Data Percent cell count reference ranges are not reported, since discordance with absolute values may lead to misinterpretation of CBC data. Current Interpretive Data was last revised on 2018. Basophil pct 0.7 % [facility] ([place]) Comment: Interpretive Data Percent cell count reference ranges are not reported, since discordance with absolute values may lead to misinterpretation of CBC data. Current Interpretive Data was last revised on 2018. Blood 08/27/2025 2:42 AM CDT 08/27/2025 2:54 AM CDT us Micheal Marie MD LAB BLOOD ORDERABLES Fi nal Result [facility] ([place]) [address] [facility] [place] [address] * (ABNORMAL) CBC with auto differential (08/27/2025 2:42 AM CDT) WBC 6.00 3.80 - 9.90 K/cumm Hgb 9.0(L) 13.0 - 17.5 g/dL [facility] ([place]) Hct 28.5(L) 38.9 - 50.3 % [facility] ([place]) Plt 168 150 - 400 K/cumm [facility] ([place]) MPV 10.9 9.1 - 12.3 fL [facility] ([place]) RBC 3.01(L) 4.30 - 5.80 M/cumm [facility] ([place]) MCV 94.7 81.3 - 96.4 fL [facility] ([place]) MCH 29.9 27.1 - 33.3 pg [facility] ([place]) MCHC 31.6(L) 32.3 - 35.7 g/dL [facility] ([place]) RDW CV 14.9 11.1 - 14.9 % [facility] ([place]) RDW SD 51.5(H) 35.7 - 48.1 fL [facility] ([place]) NRBC abs 0.00 0.00 - 0.01 K/cumm [facility] ([place]) Blood 08/27/2025 2:42 AM CDT 08/27/2025 2:54 AM CDT us Micheal Marie MD LAB BLOOD ORDERABLES Fi nal Result [facility] ([place]) 1 [facility] [place] [address] * (ABNORMAL) Comprehensive metabolic panel (08/27/2025 2:42 AM CDT) Pathologist [facility] Sodium 139 135 - 145 mmol/L [facility] ([place]) Potassium, pl 3.5 3.3 - 4.9 mmol/L [facility] ([place]) Chloride 100 97 - 110 mmol/L [facility] ([place]) CO2 27 22 - 32 mmol/L [facility] ([place]) Anion gap 12 2 - 15 mmol/L [facility] ([place]) BUN 18 6 - 25 mg/dL [facility] ([place]) Creatinine 5.79(H) 0.80 - 1.30 mg/dL [facility] ([place]) Glucose 84 70 - 199 mg/dL [facility] ([place]) Comment: Interpretive Data Fasting glucose >/= 126 mg/dl is diagnostic for diabetes. Fasting is defined as no caloric intake for at least 8 hours. Fasting glucose between 100 mg/dl to 125 mg/dl is diagnostic of prediabetes. In a patient with classic symptoms of hyperglycemia or hyperglycemic crisis, a random glucose >/= 200 mg/dl is diagnostic for diabetes. In the absence of unequivocal hyperglycemia, results should be confirmed by repeat testing. The classification and Diagnosis of Diabetes Diabetes Care 202; 46: S19-S40. Current interpretive data was last revised 2022. Calcium 8.7 8.5 - 10.3 mg/dL [facility] ([place]) Bilirubin, total 0.3 0.1 - 1.2 mg/dL [facility] ([place]) Protein, pl 6.0(L) 6.5 - 8.5 g/dL [facility] ([place]) Albumin 3.8 3.5 - 5.0 g/dL [facility] ([place]) Alk phos 74 40 - 130 Units/L [facility] ([place]) ALT 5(L) 7 - 55 Units/L [facility] ([place]) AST 15 10 - 50 Units/L [facility] ([place]) Blood 08/27/2025 2:42 AM CDT 08/27/2025 2:55 AM CDT us Micheal Marie MD LAB BLOOD ORDERABLES Fi nal Result [facility] ([place]) [address] [facility] [place] [address] * POCT glucose (08/26/2025 11:58 PM CDT) Glucose, POC 96 70 - 199 mg/dL Comment:Glu2: RN/MD Notified Blood 08/26/2025 11:5 8 PM CDT 08/26/2025 11:58 PM CDT Charley Underwood MD LAB POCT ORDERABLES - DEV ICE Final Result [facility] ([place]) [address] [facility] [place] [address] * POCT glucose (08/26/2025 8:03 PM CDT) Glucose, POC 101 70 - 199 mg/dL Blood 08/26/2025 8:03 PM CDT 08/26/2025 8:03 PM CDT Charley Underwood MD LAB POCT ORDERABLES - DEV ICE Final Result [facility] ([place]) [address] [place] [address] [place] [address] * POCT glucose (08/26/2025 5:09 PM CDT) Glucose, POC 194 70 - 199 mg/dL Blood 08/26/2025 5:09 PM CDT 08/26/2025 5:09 PM CDT Charley Underwood MD LAB POCT ORDERABLES - DEV ICE Final Result ANA MORALES ([place]) 1 [facility] [place] [address] * POCT glucose (08/26/2025 11:44 AM CDT) Glucose, POC 90 70 - 199 mg/dL Blood 08/26/2025 11:4 4 AM CDT 08/26/2025 11:44 AM CDT Charley Underwood MD LAB POCT ORDERABLES - DEV ICE Final Result ANA MORALES ([place]) 1 [facility] [place] [address] * Sepsis Lactate w/ Reflex (08/26/2025 11:25 AM CDT) Sepsis Lactate 1.0 0.7 - 2.0 mmol/L Blood 08/26/2025 11:2 5 AM CDT 08/26/2025 11:29 AM CDT Charley Underwood MD LAB BLOOD ORDERABLES Shayla l Result Performing Organization Address City/[facility]/ZIP Co de Phone Number ANA MORALES ([place]) 1 [facility] [place] [address] * (ABNORMAL) eGFR (08/26/2025 10:40 AM CDT) eGFR 17(L) >=60 mL/min/1. 73 m2 Comment: Interpretive Data [...] interpretive data was last reviewed 2021. Blood 08/26/2025 10:4 0 AM CDT 08/26/2025 10:43 AM CDT Charley Underwood MD LAB BLOOD ORDERABLES Shayla l Result Performing Organization Address City/[facility]/ZIP Co de Phone Number [facility] ([place]) 1 [facility] [employer] [place] [address] * (ABNORMAL) CBC without differential (08/26/2025 10:40 AM CDT) WBC 6.26 3.80 - 9.90 K/cumm Hgb 10.0(L) 13.0 - 17.5 g/dL [facility] ([place]) Hct 30.7(L) 38.9 - 50.3 % [facility] ([place]) Plt 175 150 - 400 K/cumm [facility] ([place]) MPV 10.4 9.1 - 12.3 fL [facility] ([place]) RBC 3.29(L) 4.30 - 5.80 M/cumm [facility] ([place]) MCV 93.3 81.3 - 96.4 fL [facility] ([place]) MCH 30.4 27.1 - 33.3 pg [facility] ([place]) MCHC 32.6 32.3 - 35.7 g/dL [facility] ([place]) RDW CV 14.8 11.1 - 14.9 % [facility] ([place]) RDW SD 51.0(H) 35.7 - 48.1 fL [facility] ([place]) NRBC abs 0.00 0.00 - 0.01 K/cumm [facility] ([place]) Blood 08/26/2025 10:4 0 AM CDT 08/26/2025 10:43 AM CDT Charley Underwood MD LAB BLOOD ORDERABLES Shayla l Result Performing Organization Address City/[facility]/ZIP Co de Phone Number [facility] ([place]) 1 [facility] [place] [address] * (ABNORMAL) Comprehensive metabolic panel (08/26/2025 10:40 AM CDT) Sodium 139 135 - 145 mmol/L [facility] ([place]) Potassium, pl 3.6 3.3 - 4.9 mmol/L [facility] ([place]) Chloride 99 97 - 110 mmol/L [facility] ([place]) CO2 28 22 - 32 mmol/L [facility] ([place]) Anion gap 12 2 - 15 mmol/L [facility] ([place]) BUN 9 6 - 25 mg/dL [facility] ([place]) Creatinine 3.71(H) 0.80 - 1.30 mg/dL [facility] ([place]) Glucose 85 70 - 199 mg/dL [facility] ([place]) Comment: Interpretive Data Fasting glucose >/= 126 mg/dl is diagnostic for diabetes. Fasting is defined as no caloric intake for at least 8 hours. Fasting glucose between 100 mg/dl to 125 mg/dl is diagnostic of prediabetes. In a patient with classic symptoms of hyperglycemia or hyperglycemic crisis, a random glucose >/= 200 mg/dl is diagnostic for diabetes. In the absence of unequivocal hyperglycemia, results should be confirmed by repeat testing. The classification and Diagnosis of Diabetes Diabetes Care 2021; 46: S19-S40. Current interpretive data was last revised 2022. Calcium 9.1 8.5 - 10.3 mg/dL [facility] ([place]) Bilirubin, total 0.6 0.1 - 1.2 mg/dL [facility] ([place]) Protein, pl 6.5 6.5 - 8.5 g/dL [facility] ([place]) Albumin 4.1 3.5 - 5.0 g/dL [facility] ([place]) Alk phos 91 40 - 130 Units/L [facility] ([place]) ALT 8 7 - 55 Units/L [facility] ([place]) AST 14 10 - 50 Units/L [facility] ([place]) Blood 08/26/2025 10:4 0 AM CDT 08/26/2025 10:43 AM CDT us Charley Underwood MD LAB BLOOD ORDERABLES Shayla l Result [facility] [place] 1 [facility] [place] [address] * CT Head WO Contrast (08/26/2025 10:30 AM CDT) Anatomical Region Laterality Modality Head and Neck N/A Computed Tomogra phy 08/26/2025 10:3 7 AM CDT Narrative 08/26/2025 10:54 AM CDT EXAM DESCRIPTION: CT HEAD WO CONTRAST REASON FOR STUDY: stroke Change in mental status, unable to use straw. Last known normal 07:44am today TECHNIQUE: Axial images acquired through the brain without intravenous contrast. Images stored on PACS. Automated exposure control was used as a dose optimization technique for this examination. COMPARISON: Head CT comparison 08/24/2025. FINDINGS: BRAIN: Old infarct along the anterolateral left temporal lobe again evident. Patchy low density of white matter throughout periventricular white matter in keeping with microvascular change. No definable abnormality of the posterior fossa. EXTRA-AXIAL SPACES: No fluid collections. No masses. CALVARIUM: No fracture. SINUSES/MASTOIDS: No fluid or mucosal thickening. ORBITS: No significant abnormality. OTHER: No other significant abnormality. IMPRESSION: No acute intracranial findings. Old left temporal lobe infarct. THIS IS AN ELECTRONICALLY VERIFIED FINAL REPORT 08/26/2025 10:54 AM - Electronically signed by Fabio Meng M.D. LC: [place] Report ID: [id number] Reading Location: [id number] Procedure Note Gin Meng MD - 08/26/2025 EXAM DESCRIPTION: CT HEAD WO CONTRAST REASON FOR STUDY: stroke Change in mental status, unable to use straw. Last known normal 07:44amtoday TECHNIQUE: Axial images acquired through the brain without intravenous contrast. Images stored on PACS. Automated exposure control was used asa dose optimization technique for this examination. COMPARISON: Head CT comparison 08/24/2025. FINDINGS: BRAIN: Old infarct along the anterolateral left temporal lobe againevident. Patchy low density of white matter throughout periventricular whitematter in keeping with microvascular change. No definable abnormality of the posterior fossa. EXTRA-AXIAL SPACES: No fluid collections. No masses. CALVARIUM: No fracture. SINUSES/MASTOIDS: No fluid or mucosal thickening. ORBITS: No significant abnormality. OTHER: No other significant abnormality. IMPRESSION: No acute intracranial findings. Old left temporal lobe infarct. THIS IS AN ELECTRONICALLY VERIFIED FINAL REPORT 08/26/2025 10:54 AM - Electronically signed by Fabio Meng M.D. LC: [place] Report ID: [id number] Reading Location: [id number] Charley Underwood MD IMG CT PROCEDURES Final R esult * POCT glucose (08/26/2025 8:53 AM CDT) Glucose, POC 85 70 - 199 mg/dL Blood 08/26/2025 8:53 AM CDT 08/26/2025 8:53 AM CDT Charley Underwood MD LAB POCT ORDERABLES - DEV ICE Final Result [facility] [place]) 1 [facility] [place] [address] * (ABNORMAL) eGFR (08/26/2025 2:53 AM CDT) eGFR 6(L) >=60 mL/min/1. 73 m2 Comment: Interpretive Data [...] interpretive data was last reviewed 2021. Blood 08/26/2025 2:53 AM CDT 08/26/2025 3:42 AM CDT us Micheal Marie MD LAB BLOOD ORDERABLES Fi nal Result ANA MORALES ([place]) 1 [facility] [place] [address] * Differential, auto (08/26/2025 2:53 AM CDT) Neutrophil abs 4.19 1.50 - 6.50 K/cumm Imm gran abs 0.02 0.00 - 0.10 K/cumm [facility] ([place]) Lymphocyte abs 0.81 0.80 - 3.30 K/cumm [facility] ([place]) Monocyte abs 0.34 0.20 - 0.80 K/cumm [facility] ([place]) Eosinophil abs 0.21 0.00 - 0.50 K/cumm [facility] ([place]) Basophil abs 0.03 0.00 - 0.10 K/cumm [facility] ([place]) Neutrophil pct 74.7 % [facility] ([place]) Comment: Interpretive Data Percent cell count reference ranges are not reported, since discordance with absolute values may lead to misinterpretation of CBC data. Current Interpretive Data was last revised on 2018. Imm gran pct 0.4 % [facility] ([place]) Comment: Interpretive Data Percent cell count reference ranges are not reported, since discordance with absolute values may lead to misinterpretation of CBC data. Current Interpretive Data was last revised on 2018. Lymphocyte pct 14.5 % [facility] ([place]) Comment: Interpretive Data Percent cell count reference ranges are not reported, since discordance with absolute values may lead to misinterpretation of CBC data. Current Interpretive Data was last revised on 2018. Monocyte pct 6.1 % [facility] ([place]) Comment: Interpretive Data Percent cell count reference ranges are not reported, since discordance with absolute values may lead to misinterpretation of CBC data. Current Interpretive Data was last revised on 2018. Eosinophil pct 3.8 % [facility] ([place]) Comment: Interpretive Data Percent cell count reference ranges are not reported, since discordance with absolute values may lead to misinterpretation of CBC data. Current Interpretive Data was last revised on 2018. Basophil pct 0.5 % [facility] ([place]) Comment: Interpretive Data Percent cell count reference ranges are not reported, since discordance with absolute values may lead to misinterpretation of CBC data. Current Interpretive Data was last revised on 2018. Blood 08/26/2025 2:53 AM CDT 08/26/2025 3:41 AM CDT us Micheal Marie MD LAB BLOOD ORDERABLES Fi nal Result [facility] ([place]) 1 [facility] [place] [address] * (ABNORMAL) CBC with auto differential (08/26/2025 2:53 AM CDT) WBC 5.60 3.80 - 9.90 K/cumm Hgb 9.2(L) 13.0 - 17.5 g/dL [facility] ([place]) Hct 29.0(L) 38.9 - 50.3 % [facility] ([place]) Plt 170 150 - 400 K/cumm [facility] ([place]) MPV 11.3 9.1 - 12.3 fL [facility] ([place]) RBC 3.02(L) 4.30 - 5.80 M/cumm [facility] ([place]) MCV 96.0 81.3 - 96.4 fL [facility] ([place]) MCH 30.5 27.1 - 33.3 pg [facility] ([place]) MCHC 31.7(L) 32.3 - 35.7 g/dL ANA MROALES ([place]) RDW CV 14.8 11.1 - 14.9 % ANA MORALES ([place]) RDW SD 52.3(H) 35.7 - 48.1 fL ANA MORALES ([place]) NRBC abs 0.00 0.00 - 0.01 K/cumm ANA MORALES ([place]) Blood 08/26/2025 2:53 AM CDT 08/26/2025 3:41 AM CDT us Micheal Marie MD LAB BLOOD ORDERABLES Fi nal Result ANA MORALES ([place]) 1 [facility] [place] [address] * Hepatitis panel, acute Blood (08/26/2025 2:53 AM CDT) Hep A IgM Nonreactive Nonreactive Comment: Interpretive Data: If Hep A IgM Ab is reported as Equivocal, a new sample should be drawn in two weeks for testing. Current interpretive data was last revised on 20. Testing performed by: [address] [address] Hep B core IgM Nonreactive Nonreactive C [facility] ([place]) Comment: Interpretive Data If HepB Core IgM Ab is reported as Equivocal, a new sample should be drawn in two weeks for testing. Current interpretive data was last revised on 20. Testing performed by: [address] [address] Hep C Ab Nonreactive Nonreactive ANA [facility] ([place]) Comment: Interpretive Data Nonreactive: Antibodies to [...] last revised on 2020. Testing performed by: [address], [place]., [address] HepBsAg Nonreactive Nonreactive ANA MORALES ([place]) Comment:Testing performed by : [facility], [address] [place] [address]., [id number] Blood 08/26/2025 2:53 AM CDT 08/26/2025 9:39 AM CDT us Jimmy Keene MD LAB MICROBIOLOGY - GENER AL ORDERABLES Final Result Performing Organization Address City/[facility] Co de Phone Number ANA MORALES ([place]) 1 [facility] [place] [address] * Hepatitis B surface antibody (immune status) Blood (08/26/2025 2:53 AM CDT) [facility] HBsAb (immune status) Reactive Comment: Interpretive Data Nonreactive: This result is consistent with a lack of immunity to Hepatitis B Virus when used in the setting of routine screening. Equivocal: The immune status of the individual should be further assessed, if appropriate, after consideration of clinical status, risk factors, and additional diagnostic information. Reactive: This result is consistent with immunity to Hepatitis B Virus when used in the setting of routine screening. Current interpretive data was last revised on 20. Testing performed by: [facility], [address] [place] [address]., [id number] HBsAb (immune status) index 86.8 mIUnits/m L ANA MORALES ([place]) Comment:Testing performed by : [address] [address] Blood 08/26/2025 2:53 AM CDT 08/26/2025 9:39 AM CDT us Jimmy Keene MD LAB MICROBIOLOGY - GENER AL ORDERABLES Final Result Performing Organization Address City/[facility] Co de Phone Number ANA MORALES ([place]) 1 [facility] [place] [address] * (ABNORMAL) Comprehensive metabolic panel (08/26/2025 2:53 AM CDT) Sodium 140 135 - 145 mmol/L [facility] ([place]) Potassium, pl 3.9 3.3 - 4.9 mmol/L [facility] ([place]) Chloride 99 97 - 110 mmol/L [facility] ([place]) CO2 28 22 - 32 mmol/L [facility] ([place]) Anion gap 13 2 - 15 mmol/L [facility] ([place]) BUN 25 6 - 25 mg/dL [facility] ([place]) Creatinine 8.15(H) 0.80 - 1.30 mg/dL [facility] ([place]) Glucose 79 70 - 199 mg/dL [facility] ([place]) Comment: Interpretive Data Fasting glucose >/= 126 mg/dl is diagnostic for diabetes. Fasting is defined as no caloric intake for at least 8 hours. Fasting glucose between 100 mg/dl to 125 mg/dl is diagnostic of prediabetes. In a patient with classic symptoms of hyperglycemia or hyperglycemic crisis, a random glucose >/= 200 mg/dl is diagnostic for diabetes. In the absence of unequivocal hyperglycemia, results should be confirmed by repeat testing. The classification and Diagnosis of Diabetes Diabetes Care 2021; 46: S19-S40. Current interpretive data was last revised 2022. Calcium 9.3 8.5 - 10.3 mg/dL [facility] ([place]) Bilirubin, total 0.4 0.1 - 1.2 mg/dL [facility] ([place]) Protein, pl 6.1(L) 6.5 - 8.5 g/dL [facility] ([place]) Albumin 3.7 3.5 - 5.0 g/dL [facility] ([place]) Alk phos 77 40 - 130 Units/L [facility] ([place]) ALT 6(L) 7 - 55 Units/L [facility] ([place]) AST 14 10 - 50 Units/L [facility] ([place]) Blood 08/26/2025 2:53 AM CDT 08/26/2025 3:42 AM CDT us Micheal Marie MD LAB BLOOD ORDERABLES Fi nal Result [facility] 1 [facility] [place] [address] * POCT glucose (08/26/2025 1:53 AM CDT) Glucose, POC 93 70 - 199 mg/dL Blood 08/26/2025 1:53 AM CDT 08/26/2025 1:53 AM CDT Darshana Kebede MD LAB POCT ORDERABLES - DEVICE Fin al Result ANA MORALES ([place]) 1 [place] [address] * POCT glucose (08/25/2025 9:11 PM CDT) Glucose, POC 105 70 - 199 mg/dL Blood 08/25/2025 9:11 PM CDT 08/25/2025 9:11 PM CDT Darshana Kebede MD LAB POCT ORDERABLES - DEVICE Fin al Result Performing Organization Address City/[facility]/ZIP Co de Phone Number [facility] ([place]) 1 [facility] [place] [address] * POCT glucose (08/25/2025 5:12 PM CDT) Glucose, POC 150 70 - 199 mg/dL Blood 08/25/2025 5:12 PM CDT 08/25/2025 5:12 PM CDT Darshana Kebede MD LAB POCT ORDERABLES - DEVICE Fin al Result Performing Organization Address City/[facility]/ZIP Co de Phone Number [facility] ([place]) 1 [place] [address] * POCT glucose (08/25/2025 12:30 PM CDT) Glucose, POC 122 70 - 199 mg/dL Blood 08/25/2025 12:3 0 PM CDT 08/25/2025 12:30 PM CDT Darshana Kebede MD LAB POCT ORDERABLES - DEVICE Fin al Result Performing Organization Address [facility] Co de Phone Number ANA MORALES ([place]) 1 [facility] [place] [address] * POCT glucose (08/25/2025 7:46 AM CDT) Glucose, POC 102 70 - 199 mg/dL Blood 08/25/2025 7:46 AM CDT 08/25/2025 7:46 AM CDT Darshana Kebede MD LAB POCT ORDERABLES - DEVICE Fin al Result Performing Organization Address [facility] Co de Phone Number ANA MORALES ([place]) 1 [facility] [place] [address] * POCT glucose (08/25/2025 2:02 AM CDT) Glucose, POC 102 70 - 199 mg/dL Blood 08/25/2025 2:02 AM CDT 08/25/2025 2:02 AM CDT Micheal Marie MD LAB POCT ORDERABLES - D EVICE Final Result Performing Organization Address [facility] Co de Phone Number ANA MORALES ([place]) [address] [facility] [place] [address] * (ABNORMAL) Troponin T high-sensitivity 6-hour (08/25/2025 12:20 AM CDT) Trop T hs 78(H) <=22 ng/L ANA [facility] ([place]) Comment: Interpretive Data For further hscTnT resources including the diagnostic algorithm and an aid in interpretation, copy and paste this link: https://nrl.testcatalog.org/show/hsTrop Current Interpretive Data last revised 2020. Trop T hs delta -4 ng/L [facility] ([place]) Trop T hs interp Insignificant [facility] ([place]) Blood 08/25/2025 12:2 0 AM CDT 08/25/2025 12:23 AM CDT us Jian Alba MD LAB BLOOD ORDERABLES Final Result Performing Organization Address City/[facility]/ZIP Co de Phone Number ANA MORALES ([place]) 1 [facility] [employer] [place] [address] * (ABNORMAL) eGFR (08/25/2025 12:20 AM CDT) eGFR 9(L) >=60 mL/min/1. 73 m2 Comment: Interpretive Data [...] interpretive data was last reviewed 2021. Blood 08/25/2025 12:2 0 AM CDT 08/25/2025 12:23 AM CDT us Micheal Marie MD LAB BLOOD ORDERABLES Fi nal Result Performing Organization Address City/[facility]/ZIP Co de Phone Number ANA MORALES ([place]) 1 [facility] [place] [address] * (ABNORMAL) Differential, auto (08/25/2025 12:20 AM CDT) Neutrophil abs 6.73(H) 1.50 - 6.50 K/cumm Imm gran abs 0.03 0.00 - 0.10 K/cumm [facility] ([place]) Lymphocyte abs 1.14 0.80 - 3.30 K/cumm [facility] ([place]) Monocyte abs 0.38 0.20 - 0.80 K/cumm [facility] ([place]) Eosinophil abs 0.27 0.00 - 0.50 K/cumm [facility] ([place]) Basophil abs 0.04 0.00 - 0.10 K/cumm [facility] ([place]) Neutrophil pct 78.4 % [facility] ([place]) Comment: Interpretive Data Percent cell count reference ranges are not reported, since discordance with absolute values may lead to misinterpretation of CBC data. Current Interpretive Data was last revised on 2018. Imm gran pct 0.3 % [facility] ([place]) Comment: Interpretive Data Percent cell count reference ranges are not reported, since discordance with absolute values may lead to misinterpretation of CBC data. Current Interpretive Data was last revised on 2018. Lymphocyte pct 13.3 % [facility] ([place]) Comment: Interpretive Data Percent cell count reference ranges are not reported, since discordance with absolute values may lead to misinterpretation of CBC data. Current Interpretive Data was last revised on 2018. Monocyte pct 4.4 % [facility] ([place]) Comment: Interpretive Data Percent cell count reference ranges are not reported, since discordance with absolute values may lead to misinterpretation of CBC data. Current Interpretive Data was last revised on 2018. Eosinophil pct 3.1 % [facility] ([place]) Comment: Interpretive Data Percent cell count reference ranges are not reported, since discordance with absolute values may lead to misinterpretation of CBC data. Current Interpretive Data was last revised on 2018. Basophil pct 0.5 % [facility] ([place]) Comment: Interpretive Data Percent cell count reference ranges are not reported, since discordance with absolute values may lead to misinterpretation of CBC data. Current Interpretive Data was last revised on 2018. Blood 08/25/2025 12:2 0 AM CDT 08/25/2025 12:23 AM CDT Micheal Marie MD LAB BLOOD ORDERABLES Fi nal Result [facility] ([place]) 1 [facility] [place] [address] * (ABNORMAL) CBC with auto differential (08/25/2025 12:20 AM CDT) WBC 8.59 3.80 - 9.90 K/cumm Hgb 10.1(L) 13.0 - 17.5 g/dL [facility] ([place]) Hct 32.2(L) 38.9 - 50.3 % [facility] ([place]) Plt 195 150 - 400 K/cumm [facility] ([place]) MPV 10.3 9.1 - 12.3 fL [facility] ([place]) RBC 3.35(L) 4.30 - 5.80 M/cumm [facility] ([place]) MCV 96.1 81.3 - 96.4 fL [facility] ([place]) MCH 30.1 27.1 - 33.3 pg [facility] ([place]) MCHC 31.4(L) 32.3 - 35.7 g/dL [facility] ([place]) RDW CV 15.0(H) 11.1 - 14.9 % [facility] ([place]) RDW SD 53.4(H) 35.7 - 48.1 fL [facility] ([place]) NRBC abs 0.00 0.00 - 0.01 K/cumm [facility] ([place]) Blood 08/25/2025 12:2 0 AM CDT 08/25/2025 12:23 AM CDT Micheal Marie MD LAB BLOOD ORDERABLES Fi nal Result Performing Organization Address City/[facility]/ZIP Co de Phone Number [facility] ([place]) 1 [facility] [place] [address] * Magnesium (08/25/2025 12:20 AM CDT) Magnesium 2.3 1.4 - 2.5 mg/dL [facility] ([place]) Blood 08/25/2025 12:2 0 AM CDT 08/25/2025 12:23 AM CDT us Micheal Marie MD LAB BLOOD ORDERABLES nal Result [facility] ([place]) 1 [facility] [place] [address] * (ABNORMAL) Comprehensive metabolic panel (08/25/2025 12:20 AM CDT) Sodium 137 135 - 145 mmol/L [facility] ([place]) Potassium, pl 3.7 3.3 - 4.9 mmol/L [facility] ([place]) Chloride 96(L) 97 - 110 mmol/L [facility] ([place]) CO2 29 22 - 32 mmol/L [facility] ([place]) Anion gap 12 2 - 15 mmol/L [facility] ([place]) BUN 18 6 - 25 mg/dL [facility] ([place]) Creatinine 6.49(H) 0.80 - 1.30 mg/dL [facility] ([place]) Glucose 116 70 - 199 mg/dL [facility] ([place]) Comment: Interpretive Data Fasting glucose >/= 126 mg/dl is diagnostic for diabetes. Fasting is defined as no caloric intake for at least 8 hours. Fasting glucose between 100 mg/dl to 125 mg/dl is diagnostic of prediabetes. In a patient with classic symptoms of hyperglycemia or hyperglycemic crisis, a random glucose >/= 200 mg/dl is diagnostic for diabetes. In the absence of unequivocal hyperglycemia, results should be confirmed by repeat testing. The classification and Diagnosis of Diabetes Diabetes Care 2021; 46: S19-S40. Current interpretive data was last revised 2022. Calcium 9.3 8.5 - 10.3 mg/dL [facility] ([place]) Bilirubin, total 0.4 0.1 - 1.2 mg/dL [facility] ([place]) Protein, pl 6.1(L) 6.5 - 8.5 g/dL [facility] ([place]) Albumin 3.8 3.5 - 5.0 g/dL [facility] ([place]) Alk phos 84 40 - 130 Units/L [facility] ([place]) ALT 7 7 - 55 Units/L [facility] ([place]) AST 13 10 - 50 Units/L [facility] ([place]) Blood 08/25/2025 12:2 0 AM CDT 08/25/2025 12:23 AM CDT us Micheal Marie MD LAB BLOOD ORDERABLES Fi nal Result [facility] ([place]) 1 [facility] [employer] [place] [address] * (ABNORMAL) Troponin T high-sensitivity 4-hour (08/24/2025 10:44 PM CDT) Trop T hs 82(H) <=22 ng/L [facility] ([place]) Comment: Interpretive Data For further hscTnT resources including the diagnostic algorithm and an aid in interpretation, copy and paste this link: https://nrl.testcatalog.org/show/hsTrop Current Interpretive Data last revised 2020. Trop T hs delta 0 ng/L [facility] ([place]) Trop T hs interp Insignificant [facility] ([place]) Blood 08/24/2025 10:4 4 PM CDT 08/24/2025 10:57 PM CDT us Jian Alba MD LAB BLOOD ORDERABLES Final Result ANA M[facility]AL[facility] ([place]) 1 [facility] [employer] [place] [address] * POCT glucose (08/24/2025 9:07 PM CDT) Glucose, POC 101 70 - 199 mg/dL Blood 08/24/2025 9:07 PM CDT 08/24/2025 9:07 PM CDT us Micheal Marie MD LAB POCT ORDERABLES - D EVICE Final Result ANA MORALES ([place]) [address] [place] [address] * ABO / Rh Confirmation Testing (08/24/2025 8:55 PM CDT) ABO/Rh Confirmation A Positive [facility] Blood 08/24/2025 8:55 PM CDT 08/24/2025 8:58 PM CDT us Jian Alba MD LAB BLOOD ORDERABLES Final Result Performing Organization Address [facility] Co de Phone Number ANA MORALES ([place]) 1 [facility] [place] [address] [facility] * (ABNORMAL) Urinalysis reflex to microscopic and culture Urine (08/24/2025 8:24 PM CDT) Color, ur Yellow Yellow Clarity, ur Clear Clear [facility] ([place]) Specific gravity, ur 1.007 1.003 - 1.030 [facility] ([place]) pH, urine 8.5 [facility] ([place]) Comment: Interpretive Data U rine pH is affected by diet, medications, systemic acid-base disturbances, and renal tubular function. pH may affect urinary stone formation. For example, urine pH below 6.0 may help reduce the tendency for calcium phosphate stones and pH greater than 6.0 may reduce the tendency for uric acid stone formation. Source: [facility] [address] Current Interpretive Data was last revised on 2017 Protein, ur ql 2+(A) Negative [facility] ([place]) Glucose, ur ql 1+(A) Negative [facility] ([place]) Ketones, ur Negative Negative [facility] ([place]) Bilirubin, ur Negative Negative [facility] (TANIKA) Blood, ur Negative Negative [facility] (TANIKA) Urobilinogen, ur <2.0 <2.0 mg/dL [facility] (TANIKA) Nitrite, ur Negative Negative [facility]ERNER A (FAYETTE) Leukocyte esterase, ur Negative Negative [facility] (TANIKA) UA reflex comment Reflex to microscopic UA will be performed. [facility] (FAYETTE) Urine 08/24/2025 8:24 PM CDT 08/24/2025 8:28 PM CDT us Micheal Marie MD LAB MICROBIOLOGY - GENE RAL ORDERABLES Final Result Performing Organization Address [facility] Co de Phone Number [facility] ([place]) 1 [facility] [place] [address] * (ABNORMAL) Urinalysis, microscopic only (08/24/2025 8:24 PM CDT) WBC, ur 0-5 0 - 5 /HPF RBC, ur 0-2 0 - 2 /HPF [facility] (FAYETTE) Bacteria, ur Trace(A) [facility] ([place]YETTE) Culture Reflex Comment Reflex conditions for urine culture (WBC >10) not met. [facility] (FAYETTE) Urine 08/24/2025 8:24 PM CDT 08/24/2025 8:28 PM CDT us Jian Alba MD LAB URINE ORDERABLES Final Result Performing Organization Address [facility] de Phone Number [facility] ([place]) 1 [facility] [place] [address] * (ABNORMAL) Troponin T high-sensitivity 2-hour (08/24/2025 7:51 PM CDT) Trop T hs 78(H) <=22 ng/L ANA [facility] (FAYETTE) Comment: Interpretive Data For further hscTnT resources including the diagnostic algorithm and an aid in interpretation, copy and paste this link: https://nrl.testcatalog.org/show/hsTrop Current Interpretive Data last revised 2020. Trop T hs delta See Comment ng/L CE RNGORDO [facility] (FAYETTE) Comment: Inappropriate collection time to report a delta. Testing performed by: [facility], [facility], [place], [address] Trop T hs pct delta See Comment % ANA [facility] (FAYETTE) Comment: Inappropriate collection time to report a delta. Testing performed by: [facility], [facility], [place], [address] Trop T hs interp See Comment C MICHAEL [facility] (FAYETTE) Comment: Inappropriate collection time to report a delta. Testing performed by: [facility], [facility], [place], [address] Blood 08/24/2025 7:51 PM CDT 08/24/2025 8:00 PM CDT us Jian Alba MD LAB BLOOD ORDERABLES Final Result ANA [facility] (FA[place]ETTE) 1 [facility] Department [place] [address] * POCT glucose (08/24/2025 7:49 PM CDT) Glucose, POC 91 70 - 199 mg/dL Blood 08/24/2025 7:49 PM CDT 08/24/2025 7:49 PM CDT us Jian Alba MD LAB POCT ORDERABLES - DEVIC E Final Result ANA [facility] ([place]ETTE) 1 [facility] Department [place] [address] * Blood culture Blood (08/24/2025 7:29 PM CDT) Report Final Report: No growth Comment:Testing performed by : [facility], [address] [facility], [place]., [address] Blood 08/24/2025 7:29 PM CDT 08/25/2025 2:10 AM CDT Narrative ANA [facility] (FAYETTE) - 08/29/2025 7:00 AM CDT Received only aerobic blood culture bottle Collection->Peripheral 1. Blood cultures are incubated for 4 days on a continuously monitored blood culture system. The first report of a negative culture is issued within 24 hours of receipt of the specimen in the laboratory. 2. Positive culture results are reported as soon as they are detected. 3. The most important factor for detection of microbes in the setting of bloodstream infection is the volume of blood submitted for culture. Failure to collect an optimal blood volume can result in false negative blood cultures. 4. For pediatric patients, the recommended blood volume to collect follows a weight based strategy. See the electronic test catalog for collection instructions. 5. For positive blood cultures, a rapid molecular test may be performed for organism identification using the kristan ePlex blood culture identification panel for gram positive (BCID-GP) and gram negative (BCID-GN) organisms. This nucleic acid amplification test detects microbial DNA in positive blood culture broth. This assay has been cleared by the [place] Food and Drug Administration and its performance characteristics have been verified by the [facility]. For questions about this culture, contact the Microbiology Laboratory at [phone]. Interpretive data was last revised on 24. Jian Alba MD LAB MICROBIOLOGY - GENERAL ORDERABLES Final Result ANA [facility] (TANIKA) 1 [facility] Department [place] [address] * Blood culture Blood (08/24/2025 7:18 PM CDT) Report Final Report: No growth Comment:Testing performed by : [facility], [address] [place]., [address] Blood 08/24/2025 7:18 PM CDT 08/25/2025 2:09 AM CDT Narrative ANA [facility] (TANIKA) - 08/29/2025 7:00 AM CDT Collection->Peripheral 1. Blood cultures are incubated for 4 days on a continuously monitored blood culture system. The first report of a negative culture is issued within 24 hours of receipt of the specimen in the laboratory. 2. Positive culture results are reported as soon as they are detected. 3. The most important factor for detection of microbes in the setting of bloodstream infection is the volume of blood submitted for culture. Failure to collect an optimal blood volume can result in false negative blood cultures. 4. For pediatric patients, the recommended blood volume to collect follows a weight based strategy. See the electronic test catalog for collection instructions. 5. For positive blood cultures, a rapid molecular test may be performed for organism identification using the kristan ePlex blood culture identification panel for gram positive (BCID-GP) and gram negative (BCID-GN) organisms. This nucleic acid amplification test detects microbial DNA in positive blood culture broth. This assay has been cleared by the [place] Food and Drug Administration and its performance characteristics have been verified by the [facility]. For questions about this culture, contact the Microbiology Laboratory at [phone]. Interpretive data was last revised on 24. Jian Alba MD LAB MICROBIOLOGY - GENERAL ORDERABLES Final Result Performing Organization Address City/[facility] de Phone Number [facility]NA [facility] 1 [facility] Department of Laboratories [place] [id number] * ECG 12 lead (08/24/2025 7:01 PM CDT) 08/24/2025 7:01 PM CDT Narrative [facility] - 08/25/2025 6:43 AM CDT Vent Rate: 64 bpm RR Interval: 926 msec ME Interval: 167 msec QRS Duration: 126 msec QT Interval: 449 msec QTC Interval: 459 msec P-R-T [place]: -6 - 2 - 36 degrees IMPRESSION: SINUS RHYTHM WITH OCCASIONAL VENTRICULAR PREMATURE COMPLEXES RIGHT BUNDLE BRANCH BLOCK [120+ ms QRS DURATION, UPRIGHT V1, 40+ ms S IN I/aVL/V4/V5/V6] ABNORMAL ECG NO CHANGE FROM PREVIOUS TRACING NOTED Electronically Signed By: Yonatan Rocha MD Jian Alba MD ECG ORDERABLES Final Resul t Performing Organization Address [facility] de Phone Number [facility] [employer] * XR Chest 1 Vw Portable (08/24/2025 7:00 PM CDT) Anatomical Region Laterality Modality Body, Chest N/A Computed Radiogr aphy 08/24/2025 7:19 PM CDT Narrative 08/24/2025 7:20 PM CDT EXAM DESCRIPTION: XR CHEST 1 VIEW REASON FOR STUDY: Abd pain, unspecified Pt arrives by [facility]. EMS called for low blood sugar, BG 100 per EMS. Pt mostly speaks Emirati. Pt has abdominal pain. Pt refused dialysis at some point for EMS. Pt from [place]. TECHNIQUE: Single radiographic view(s) of the chest. COMPARISON: 04/19/2024 FINDINGS: LUNGS: Minor chronic lung changes are noted. No consolidation, effusion or other acute process is seen. HEART/MEDIASTINUM: Cardiac silhouette normal in size. Mediastinal and hilar contours appear normal. LINES/TUBES: None. BONES: No acute osseous abnormality. IMPRESSION: No acute cardiopulmonary abnormality. THIS IS AN ELECTRONICALLY VERIFIED FINAL REPORT 08/24/2025 7:20 PM - Electronically signed by Jacky BOWSER: MAGUE Report ID: [id number] Reading Location: [place] [address] Procedure Note Jacky Hoang MD - 08/24/2025 EXAM DESCRIPTION: XR CHEST 1 VIEW REASON FOR STUDY: Abd pain, unspecified Pt arrives by [facility]. EMS called for low blood sugar, BG 100per EMS. Pt mostly speaks Emirati. Pt has abdominal pain. Pt refuseddialysis at some point for EMS. Pt from [place]. TECHNIQUE: Single radiographic view(s) of the chest. COMPARISON: 04/19/2024 FINDINGS: LUNGS: Minor chronic lung changes are noted. No consolidation, effusionor other acute process is seen. HEART/MEDIASTINUM: Cardiac silhouette normal in size. Mediastinal andhilar contours appear normal. LINES/TUBES: None. BONES: No acute osseous abnormality. IMPRESSION: No acute cardiopulmonary abnormality. THIS IS AN ELECTRONICALLY VERIFIED FINAL REPORT 08/24/2025 7:20 PM - Electronically signed by Jacky BOWSER: MAGUE Report ID: [id number] Reading Location: [place] [address] us Jian Alba MD IMG XR PROCEDURES Final Res ult * XR Kub (Abd 1 View) (08/24/2025 7:00 PM CDT) Anatomical Region Laterality Modality Body, Abdomen N/A Computed Radiogr aphy 08/24/2025 7:20 PM CDT Narrative 08/24/2025 7:21 PM CDT EXAM DESCRIPTION: XR KUB REASON FOR STUDY: Abd pain, unspecified Pt arrives by [facility]. EMS called for low blood sugar, BG 100 per EMS. Pt mostly speaks Emir[place]. Pt has abdominal pain. Pt refused dialysis at some point for EMS. Pt from [facility]. TECHNIQUE: 2 radiographic view of the abdomen. COMPARISON: 04/23/2025 FINDINGS: BOWEL: Nonobstructive gas pattern. Moderate amount of stool is noted. No evidence of ileus or obstruction is seen. SOFT TISSUES: No abnormal calcifications. LINES/TUBES: None. BONES: No acute osseous abnormality. IMPRESSION: No acute abnormality THIS IS AN ELECTRONICALLY VERIFIED FINAL REPORT 08/24/2025 7:21 PM - Electronically signed by Jacky Hoang M.D. KH: MAGUE Report ID: [id number] Reading Location: [place] [address] Procedure Note Jacky Hoang MD - 08/24/2025 EXAM DESCRIPTION: XR KUB REASON FOR STUDY: Abd pain, unspecified Pt arrives by [facility]. EMS called for low blood sugar, BG 100per EMS. Pt mostly speaks Emir[place]. Pt has abdominal pain. Pt refuseddialysis at some point for EMS. Pt from [facility]. TECHNIQUE: 2 radiographic view of the abdomen. COMPARISON: 04/23/2025 FINDINGS: BOWEL: Nonobstructive gas pattern. Moderate amount of stool is noted.No evidence of ileus or obstruction is seen. SOFT TISSUES: No abnormal calcifications. LINES/TUBES: None. BONES: No acute osseous abnormality. IMPRESSION: No acute abnormality THIS IS AN ELECTRONICALLY VERIFIED FINAL REPORT 08/24/2025 7:21 PM - Electronically signed by Jacky Hoang M.D. KH: MAGUE Report ID: [id number] Reading Location: [id number] Jian Alba MD IMG XR PROCEDURES Final Res ult * Sepsis Lactate w/ Reflex (08/24/2025 6:57 PM CDT) Sepsis Lactate 1.0 0.7 - 2.0 mmol/L Blood 08/24/2025 6:57 PM CDT 08/24/2025 7:17 PM CDT Jian Alba MD LAB BLOOD ORDERABLES Final Result ANA [facility] ([place]ETTE) 1 [facility] [place] [address] * (ABNORMAL) Pro B-type natriuretic peptide (08/24/2025 6:57 PM CDT) NT-proBNP 24,728(H) <=300 pg/mL ANA [facility] (FAYETTE) Comment: Interpretive Comments: A. Dyspnea in Acute Care Setting All Ages: < 300 pg/ml, acute heart failure unlikely. < 50 yrs: 300 - 450 pg/ml, further investigation warranted. > 450 pg/ml, acute heart failure likely. 50 - 74 yrs: 300 - 900 pg/ml, further investigation warranted. > 900 pg/ml, acute heart failure likely . > or = 75 yrs: 450 - 1800 pg/ml, further investigation warranted. > 1800 pg/ml, acute heart failure likely. B. Non-acute Setting < 75 yrs < 125 pg/ml, rules out heart failure. > or = 125 pg/ml, further investigation warranted. > or = 75 yrs < 450 pg/ml, rules out heart failure. > or = 450 pg/ml, further investigation warranted. - Knowledge of each individual patient's NT-proBNP range may be more useful than using similar cut-points for every patient. Please note that marked elevations in NT-proBNP levels may be observed in state other than Left Ventricular Congestive Failure, including: acute coronary syndromes, right heart strain/failure (including pulmonary embolism and cor pulmonale), critical illness, renal failure, as well as advanced age. - References: 1. Olivia BELTRAN et.al. Eur Heart J. 2006:27:330-337. 2. Leah RW, Clarisse MILLER. J. AM Martine Cardiol: Cardiovasc Imag. 2009;2: 216- 225. Interpretive Data Last Revised Date: 2018. Blood 08/24/2025 6:57 PM CDT 08/24/2025 7:17 PM CDT Jian Alba MD LAB BLOOD ORDERABLES Final Result Performing Organization Address [facility]/ZIP Co de Phone Number ANA [facility] (FAYETTE) 1 [facility] [employer] [place] [address] * ABO/Rh (08/24/2025 6:57 PM CDT) ABO/Rh A Positive Blood 08/24/2025 6:57 PM CDT 08/24/2025 7:17 PM CDT Narrative ANA [facility] (FAYETTE) - 08/24/2025 8:04 PM CDT Has the patient had Daratumumab or Isatuximab in the past 6 months?->Unknown Jian Alba MD LAB BLOOD BANK TEST ORDERAB LES Final Result Performing Organization Address City/[facility]/ZIP Co de Phone Number [facility]NA [facility] (FAYETTE) 1 [facility] [employer] [place] [address] * aPTT (08/24/2025 6:57 PM CDT) aPTT 28 26 - 38 sec ANA [facility] (FAYETTE) Comment: Interpretive Data Heparin therapeutic range: 66.0 - 100.0 seconds. Range based on correlation with therapeutic heparin activity range of 0.3 - 0.7 Units/mL. Current interpretive data was last revised on 2023. Blood 08/24/2025 6:57 PM CDT 08/24/2025 7:01 PM CDT Jian Alba MD LAB BLOOD ORDERABLES Final Result ANA [facility] ([place]YET[place]) 1 [facility] [place] [address] * Protime-INR (08/24/2025 6:57 PM CDT) PT 11.4 10.2 - 13.5 sec ANA [facility] (FAYETTE) INR 1.01 0.90 - 1.20 ANA [facility] (FAYETTE) Comment: Interpretive data Oral anticoagulant therapeutic ranges: Venous thromboembolism prophylaxis or treatment: 2.0-3.0 CARDIOLOGY Standard range: 2.0-3.0 High-intensity range: 2.5-3.5 Refer to indication-specific guidelines for appropriate target ranges for prosthetic heart valve replacement. Current interpretive data was last revised on 2019. Blood 08/24/2025 6:57 PM CDT 08/24/2025 7:01 PM CDT Jian Alba MD LAB BLOOD ORDERABLES Final Result Performing Organization Address [facility] Co de Phone Number ANA [facility] (FAYETTE) 1 [facility] [place] [address] * Antibody screen (08/24/2025 6:57 PM CDT) Shandra, indirect, Gel Interpretation Negative ABSC Blood 08/24/2025 6:57 PM CDT 08/24/2025 7:17 PM CDT Narrative ANA [facility] ([place]TE) - 08/24/2025 8:04 PM CDT Has the patient had Daratumumab or Isatuximab in the past 6 months?->Unknown Jian Alba MD LAB BLOOD BANK TEST ORDERAB LES Final Result ANA [facility] (TANIKA) 1 [facility] Department [place] [address] * CRP (acute phase) (08/24/2025 6:57 PM CDT) CRP 6.0 <=10.0 mg/L ANA [facility] (TANIKA) Blood 08/24/2025 6:57 PM CDT 08/24/2025 7:17 PM CDT Jian Alba MD LAB BLOOD ORDERABLES Final Result ANA [facility] (TANIKA) 1 [facility] [place] [address] * CT Chest Abdomen Pelvis WO Contrast (08/24/2025 6:45 PM CDT) Anatomical Region Laterality Modality Body N/A Computed Tomogra phy 08/24/2025 7:21 PM CDT Narrative 08/24/2025 7:23 PM CDT EXAM DESCRIPTION: CT CHEST ABDOMEN PELVIS WO CONTRAST REASON FOR STUDY: Sepsis TECHNIQUE: CT scan of the chest, abdomen, and pelvis performed without intravenous and without oral contrast using helical scanning technique. Reconstructed coronal and sagittal MPR images reviewed. All images stored on PACS. Automated exposure control was used as a dose optimization technique for this examination. COMPARISON: 04/19/2024 FINDINGS: The sensitivity for detection of visceral lesions is diminished without the use of intravenous contrast. CHEST LUNGS: Minor dependent atelectasis is seen in both lungs. No large consolidation is seen. PLEURA: No effusion. No pneumothorax. MEDIASTINUM/HOMERO: No identified masses or abnormal nodes. HEART: Cardiomegaly is noted to a mild degree. Small pericardial effusion is noted. CORONARY ARTERY CALCIFICATION: Yes VASCULATURE CHEST: No thoracic aortic aneurysm. AXILLA: No adenopathy. CHEST WALL: No masses. No subcutaneous air. HARDWARE/LINES/TUBES: None. MUSCULOSKELETAL CHEST: No significant abnormality. ABDOMEN/PELVIS LIVER: Normal size. No identified cystic or solid masses. No cysts. GALLBLADDER: Unremarkable BILE DUCTS: No intrahepatic or extrahepatic ductal dilatation. SPLEEN: Normal size. No focal lesions. PANCREAS: No identified cystic or solid masses. No significant calcifications. No adjacent inflammation or peripancreatic fluid collections. Pancreatic duct not dilated. ADRENALS: Normal. KIDNEYS/URINARY TRACT: The kidneys are mildly atrophic. No hydronephrosis is seen. No stones are seen. No masses are identified. Urinary bladder is unremarkable. GI: No dilated bowel loops. No obvious wall thickening. Normal appendix. Diverticulosis is seen of the distal colon without evidence of diverticulitis.. PERITONEUM: No ascites or free air. RETROPERITONEUM: No mass or adenopathy. REPRODUCTIVE: No significant abnormality. VASCULATURE ABDOMEN: Minor atherosclerotic disease is seen. No aneurysm is seen. MUSCULOSKELETAL ABDOMEN PELVIS: Minor degenerative changes are seen diffusely. OTHER: No significant abnormality. IMPRESSION: 1. Minor dependent atelectasis in the lungs. 2. Cardiomegaly with small pericardial effusion. 3. Diverticulosis without evidence of diverticulitis. 4. Mild renal atrophy. THIS IS AN ELECTRONICALLY VERIFIED FINAL REPORT 08/24/2025 7:23 PM - Electronically signed by Jacky Hoang M.D. KH: MAGUE Report ID: [id number] Reading Location: [place] [address] Procedure Note Jacky Hoang MD - 08/24/2025 EXAM DESCRIPTION: CT CHEST ABDOMEN PELVIS WO CONTRAST REASON FOR STUDY: Sepsis TECHNIQUE: CT scan of the chest, abdomen, and pelvis performed without intravenous and without oral contrast using helical scanning technique. Reconstructed coronal and sagittal MPR images reviewed. All images storedon PACS. Automated exposure control was used as a dose optimizationtechnique for this examination. COMPARISON: 04/19/2024 FINDINGS: The sensitivity for detection of visceral lesions is diminished withoutthe use of intravenous contrast. CHEST LUNGS: Minor dependent atelectasis is seen in both lungs. No large consolidation is seen. PLEURA: No effusion. No pneumothorax. MEDIASTINUM/HOMERO: No identified masses or abnormal nodes. HEART: Cardiomegaly is noted to a mild degree. Small pericardialeffusion is noted. CORONARY ARTERY CALCIFICATION: Yes VASCULATURE CHEST: No thoracic aortic aneurysm. AXILLA: No adenopathy. CHEST WALL: No masses. No subcutaneous air. HARDWARE/LINES/TUBES: None. MUSCULOSKELETAL CHEST: No significant abnormality. ABDOMEN/PELVIS LIVER: Normal size. No identified cystic or solid masses. No cysts. GALLBLADDER: Unremarkable BILE DUCTS: No intrahepatic or extrahepatic ductal dilatation. SPLEEN: Normal size. No focal lesions. PANCREAS: No identified cystic or solid masses. No significant calcifications. No adjacent inflammation or peripancreatic fluidcollections. Pancreatic duct not dilated. ADRENALS: Normal. KIDNEYS/URINARY TRACT: The kidneys are mildly atrophic. Nohydronephrosis is seen. No stones are seen. No masses are identified. Urinarybladder is unremarkable. GI: No dilated bowel loops. No obvious wall thickening. Normalappendix. Diverticulosis is seen of the distal colon without evidence of diverticulitis.. PERITONEUM: No ascites or free air. RETROPERITONEUM: No mass or adenopathy. REPRODUCTIVE: No significant abnormality. VASCULATURE ABDOMEN: Minor atherosclerotic disease is seen. No aneurysmis seen. MUSCULOSKELETAL ABDOMEN PELVIS: Minor degenerative changes are seen diffusely. OTHER: No significant abnormality. IMPRESSION: 1. Minor dependent atelectasis in the lungs. 2. Cardiomegaly with small pericardial effusion. 3. Diverticulosis without evidence of diverticulitis. 4. Mild renal atrophy. THIS IS AN ELECTRONICALLY VERIFIED FINAL REPORT 08/24/2025 7:23 PM - Electronically signed by Jacky Hoang M.D. KH: MAGUE Report ID: [id number] Reading Location: [place] [address] Jian Alba MD IMG CT PROCEDURES Final Res ult * CT Head WO Contrast (08/24/2025 6:45 PM CDT) Anatomical Region Laterality Modality Head and Neck N/A Computed Tomogra phy 08/24/2025 7:02 PM CDT Narrative 08/24/2025 7:19 PM CDT EXAM DESCRIPTION: CT HEAD WO CONTRAST REASON FOR STUDY: Headache, no red flags Pt is complaining of a headache, low blood sugar, and generalized abdominal pain. TECHNIQUE: Axial images acquired through the brain without intravenous contrast. Images stored on PACS. Automated exposure control was used as a dose optimization technique for this examination. COMPARISON: 04/19/2024 FINDINGS: BRAIN: No hemorrhage, edema or mass effect. No recent infarct. Patchy hypodensity of the cerebral white matter suggests chronic small-vessel ischemic changes. Diffuse atrophy of the brain is noted. EXTRA-AXIAL SPACES: No fluid collections. No masses. CALVARIUM: No fracture. SINUSES/MASTOIDS: No fluid or mucosal thickening. ORBITS: No significant abnormality. OTHER: No other significant abnormality. IMPRESSION: No acute intracranial findings. Extensive chronic changes are again noted THIS IS AN ELECTRONICALLY VERIFIED FINAL REPORT 08/24/2025 7:19 PM - Electronically signed by Jacky BOWSER: MAGUE Report ID: [id number] Reading Location: [id number] Procedure Note Jacky Hoang MD - 08/24/2025 EXAM DESCRIPTION: CT HEAD WO CONTRAST REASON FOR STUDY: Headache, no red flags Pt is complaining of a headache, low blood sugar, and generalizedabdominal pain. TECHNIQUE: Axial images acquired through the brain without intravenous contrast. Images stored on PACS. Automated exposure control was used asa dose optimization technique for this examination. COMPARISON: 04/19/2024 FINDINGS: BRAIN: No hemorrhage, edema or mass effect. No recent infarct.Patchy hypodensity of the cerebral white matter suggests chronic small-vessel ischemic changes. Diffuse atrophy of the brain is noted. EXTRA-AXIAL SPACES: No fluid collections. No masses. CALVARIUM: No fracture. SINUSES/MASTOIDS: No fluid or mucosal thickening. ORBITS: No significant abnormality. OTHER: No other significant abnormality. IMPRESSION: No acute intracranial findings. Extensive chronic changes are againnoted THIS IS AN ELECTRONICALLY VERIFIED FINAL REPORT 08/24/2025 7:19 PM - Electronically signed by Jacky BOWSER: MAGUE Report ID: [id number] Reading Location: [id number] Jian Alba MD IM CT PROCEDURES Final Res ult * (ABNORMAL) Troponin T high-sensitivity series (baseline, 2hr, 4hr, 6hr) (08/24/2025 6:22 PM CDT) Trop T hs 82(H) <=22 ng/L ANA [facility] (TANIKA) Comment: Interpretive Data For further hscTnT resources including the diagnostic algorithm and an aid in interpretation, copy and paste this link: https://nrl.testcatalog.org/show/hsTrop Current Interpretive Data last revised 2020. Blood 08/24/2025 6:22 PM CDT 08/24/2025 6:29 PM CDT Jian Alba MD LAB BLOOD ORDERABLES Final Result ANA [facility] ([place]) 1 [facility] [place] [address] * (ABNORMAL) eGFR (08/24/2025 6:22 PM CDT) eGFR 9(L) >=60 mL/min/1. 73 m2 Comment: Interpretive Data [...] interpretive data was last reviewed 2021. Blood 08/24/2025 6:22 PM CDT 08/24/2025 6:29 PM CDT Jian Alba MD LAB BLOOD ORDERABLES Final Result ANA [facility] (FAYETTE) 1 [facility] Department [place] [address] * Differential, auto (08/24/2025 6:22 PM CDT) Neutrophil abs 5.12 1.50 - 6.50 K/cumm Imm gran abs 0.02 0.00 - 0.10 K/cumm [facility] ([place]) Lymphocyte abs 1.00 0.80 - 3.30 K/cumm [facility] ([place]) Monocyte abs 0.41 0.20 - 0.80 K/cumm [facility] ([place]) Eosinophil abs 0.27 0.00 - 0.50 K/cumm [facility] ([place]) Basophil abs 0.04 0.00 - 0.10 K/cumm [facility] ([place]) Neutrophil pct 74.6 % [facility] ([place]) Comment: Interpretive Data Percent cell count reference ranges are not reported, since discordance with absolute values may lead to misinterpretation of CBC data. Current Interpretive Data was last revised on 2018. Imm gran pct 0.3 % [facility] ([place]) Comment: Interpretive Data Percent cell count reference ranges are not reported, since discordance with absolute values may lead to misinterpretation of CBC data. Current Interpretive Data was last revised on 2018. Lymphocyte pct 14.6 % [facility] ([place]) Comment: Interpretive Data Percent cell count reference ranges are not reported, since discordance with absolute values may lead to misinterpretation of CBC data. Current Interpretive Data was last revised on 2018. Monocyte pct 6.0 % [facility] (TANIKA) Comment: Interpretive Data Percent cell count reference ranges are not reported, since discordance with absolute values may lead to misinterpretation of CBC data. Current Interpretive Data was last revised on 2018. Eosinophil pct 3.9 % [facility] ([place]IK[place]) Comment: Interpretive Data Percent cell count reference ranges are not reported, since discordance with absolute values may lead to misinterpretation of CBC data. Current Interpretive Data was last revised on 2018. Basophil pct 0.6 % [facility] ([place]IKA) Comment: Interpretive Data Percent cell count reference ranges are not reported, since discordance with absolute values may lead to misinterpretation of CBC data. Current Interpretive Data was last revised on 2018. Blood 08/24/2025 6:22 PM CDT 08/24/2025 6:29 PM CDT Jian Alba MD LAB BLOOD ORDERABLES Final Result [facility] (TANIKA) 1 [facility] Department [place] [address] * (ABNORMAL) CBC with auto differential (08/24/2025 6:22 PM CDT) WBC 6.86 3.80 - 9.90 K/cumm Hgb 9.5(L) 13.0 - 17.5 g/dL [facility] ([place]) Hct 29.6(L) 38.9 - 50.3 % [facility] ([place]) Plt 189 150 - 400 K/cumm [facility] ([place]) MPV 10.8 9.1 - 12.3 fL [facility] ([place]) RBC 3.13(L) 4.30 - 5.80 M/cumm [facility] ([place]) MCV 94.6 81.3 - 96.4 fL [facility] ([place]) MCH 30.4 27.1 - 33.3 pg [facility] ([place]) MCHC 32.1(L) 32.3 - 35.7 g/dL [facility] ([place]) RDW CV 15.2(H) 11.1 - 14.9 % [facility] ([place]) RDW SD 52.0(H) 35.7 - 48.1 fL [facility] ([place]) NRBC abs 0.00 0.00 - 0.01 K/cumm [facility] ([place]) Blood Venous blood specimen / Unknown 08/24/2025 6:22 PM CDT 08/24/2025 6:29 PM CDT Jian Alba MD LAB BLOOD ORDERABLES Final Result [facility] (TANIKA) 1 [facility] [place] [address] * Lipase (08/24/2025 6:22 PM CDT) Lipase 20 10 - 99 Units/L [facility] (TANIKA) Blood Venous blood specimen / Unknown 08/24/2025 6:22 PM CDT 08/24/2025 6:29 PM CDT Jian Alba MD LAB BLOOD ORDERABLES Final Result Performing Organization Address City/[facility] Co de Phone Number [facility] (TANIKA) 1 [facility] [place] [address] * (ABNORMAL) Comprehensive metabolic panel (08/24/2025 6:22 PM CDT) Sodium 137 135 - 145 mmol/L [facility] Potassium, pl 3.5 3.3 - 4.9 mmol/L [facility] ([place]) Chloride 96(L) 97 - 110 mmol/L [facility] ([place]) CO2 29 22 - 32 mmol/L [facility] ([place]) Anion gap 12 2 - 15 mmol/L [facility] ([facility] BUN 16 6 - 25 mg/dL [facility] ([place]) Creatinine 6.21(H) 0.80 - 1.30 mg/dL [facility] ([place]) Glucose 90 70 - 199 mg/dL [facility] ([place] Comment: Interpretive Data Fasting glucose >/= 126 mg/dl is diagnostic for diabetes. Fasting is defined as no caloric intake for at least 8 hours. Fasting glucose between 100 mg/dl to 125 mg/dl is diagnostic of prediabetes. In a patient with classic symptoms of hyperglycemia or hyperglycemic crisis, a random glucose >/= 200 mg/dl is diagnostic for diabetes. In the absence of unequivocal hyperglycemia, results should be confirmed by repeat testing. The classification and Diagnosis of Diabetes Diabetes Care 202; 46: S19-S40. Current interpretive data was last revised 2022. Calcium 9.4 8.5 - 10.3 mg/dL [facility] ([place]IK[place]) Bilirubin, total 0.6 0.1 - 1.2 mg/dL [facility] ([place]) Protein, pl 6.0(L) 6.5 - 8.5 g/dL [facility] ([place]) Albumin 3.8 3.5 - 5.0 g/dL [facility] ([place]) Alk phos 82 40 - 130 Units/L [facility] ([place]) ALT 7 7 - 55 Units/L [facility] ([place]) AST 15 10 - 50 Units/L [facility] ([place]) Blood 08/24/2025 6:22 PM CDT 08/24/2025 6:29 PM CDT Jian Alba MD LAB BLOOD ORDERABLES Final Result Performing Organization Address [facility] Phone Number [facility] ([facility] 1 [facility] [place] [address] * ECG 12 lead (08/24/2025 6:10 PM CDT) 08/24/2025 6:10 PM CDT Narrative [facility] - 08/25/2025 6:43 AM CDT Vent Rate: 57 bpm RR Interval: 1049 msec ME Interval: 179 msec QRS Duration: 128 msec QT Interval: 474 msec QTC Interval: 467 msec P-R-T [place]: -24 - -1 - 23 degrees IMPRESSION: SINUS BRADYCARDIA WITH OCCASIONAL VENTRICULAR PREMATURE COMPLEXES RIGHT BUNDLE BRANCH BLOCK [120+ ms QRS DURATION, UPRIGHT V1, 40+ ms S IN I/aVL/V4/V5/V6] ABNORMAL ECG NO CHANGE FROM PREVIOUS TRACING NOTED Electronically Signed By: Yonatan Rocha MD Jian Alba MD ECG ORDERABLES Final Resul t Performing Organization Address [facility] de Phone Number [facility] * POCT glucose (08/24/2025 6:10 PM CDT) Glucose, POC 93 70 - 199 mg/dL Blood 08/24/2025 6:10 PM CDT 08/24/2025 6:10 PM CDT us Notinfile Unknown LAB POCT ORDERABLES - DEVICE F inal Result [facility] (FA[place]ET[place]) 1 [facility] Department [place] [address] from Last 3 Months Insurance [employer] IDMS Advance Directives For more information, please contact: [phone] Documents on File Type Date 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
--- OUTSIDE RECORDS SUMMARY | 2025-09-17 20:27 | XMS_ITS | Encounter Summary ---
Author Organization [facility] Address [facility] [place] [address] Care Team Providers Care Landscape Drafter Name Role Phone Pee Decker MD Primary Care Provider [phone] Encounter Details Date Type Department Care Team (Late st Contact Info) Description 03/07/2024 Lab Requisition [facility] [address] [place] [address] Glynn Narvaez MD [address] [place] [phone] Social History Tobacco Use Types Packs/Day Years [...] st Contact Info) Description 01/01/2026 1:00 PM 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 - Neurology [address] [place] [address], [facility] [place] [phone] Claudio Chery MD [address] [place] [address] documented as of this encounter Procedures Procedure Name Priority Date/Time Associated Diagnosis Comments CBC W AUTO DIFFERENTIAL STAT 03/07/2024 12:50 PM CDT B-TYPE NATRIURETIC PEPTIDE STAT 03/07/2024 12:50 PM CDT COMPREHENSIVE METABOLIC PANEL STAT 03/07/2024 12:50 PM CDT documented in this encounter Results * (ABNORMAL) B-TYPE NATRIURETIC PEPTIDE (03/07/2024 12:50 PM CDT) Pathologist [facility] BNP 167(H) <=100 pg/mL 03/07/2024 3:33 PM CDT [facility] Blood BLOOD SPECIMEN / Unknown Venipuncture / Unknown 03/07/2024 12:50 PM CDT 03/07/2024 3:00 PM CDT [facility] - 03/07/2024 3:33 PM [...] LAB - CHEMISTRY ORDERABLES Shayla rodriguez Result [facility] [address] [place] [address] * (ABNORMAL) COMPREHENSIVE METABOLIC PANEL (03/07/2024 12:50 PM CDT) Pathologist [facility] Glucose 188(H) 70 - 105 mg/dL 03/07/2024 3:28 PM CDT [facility] Sodium 139 136 - 145 mmol/L 03/07/2024 3:28 PM CDT [facility] Potassium 4.4 3.5 - 5.1 mmol/L 03/07/2024 3:28 PM CDT [facility] Chloride 100 98 - 107 mmol/L 03/07/2024 3:28 PM CDT [facility] CO2 28 22 - 29 mmol/L 03/07/2024 3:28 PM CDT [facility] Calcium 8.1(L) 8.4 - 10.4 mg/dL 03/07/2024 3:28 PM CDT [facility] Anion Gap 11 6 - 16 mmol/L 03/07/2024 3:28 PM CDT [facility] BUN 79(H) 7 - 26 mg/dL 03/07/2024 3:28 PM CDT [facility] Creatinine 6.77(H) 0.72 - 1.25 mg/dL 03/07/2024 3:28 PM CDT [facility] Alkaline Phosphatase 108 40 - 150 U/L 03/07/2024 3:28 PM CDT [facility] ALT 11 0 - 55 U/L 03/07/2024 3:28 PM CDT [facility] AST 12 5 - 34 U/L 03/07/2024 3:28 PM CDT [facility] Protein Total 6.6 6.4 - 8.3 gm/dL 03/07/2024 3:28 PM CDT [facility] Albumin 3.5 3.4 - 5.0 gm/dL 03/07/2024 3:28 PM CDT [facility] Bilirubin Total 0.5 0.2 - 1.2 mg/dL 03/07/2024 3:28 PM CDT [facility] eGFR by CKD-EPI 8(L) >=90 mL/min/1.7 3 m2 03/07/2024 3:28 PM CDT [facility] Blood BLOOD SPECIMEN / Unknown Venipuncture / Unknown 03/07/2024 12:50 PM CDT 03/07/2024 3:00 PM CDT Glynn Narvaez MD LAB - CHEMISTRY ORDERABLES Shayla l Result [facility] [address] [place], [place] [id number] * (ABNORMAL) CBC WITH DIFFERENTIAL (03/07/2024 12:50 PM CDT) [facility] Signature WBC 12.2(H) 4.0 - 10.7 x10E9/L 03/07/2024 3:09 PM CDT [facility] RBC Count 3.61(L) 4.30 - 5.80 x10E12/L 03/07/2024 3:09 PM CDT [facility] Hemoglobin 10.9(L) 13.3 - 17.5 g/dL 03/07/2024 3:09 PM [facility] Hematocrit 34.5(L) 38.7 - 51.1 % 03/07/2024 3:09 PM [facility] MCV 95.6 80.0 - 98.0 fL 03/07/2024 3:09 PM [facility] MCH 30.2 26.7 - 33.6 pg 03/07/2024 3:09 PM [facility] MCHC 31.6(L) 31.7 - 36.3 g/dL 03/07/2024 3:09 PM [facility] RDW-CV 14.1 11.3 - 14.8 % 03/07/2024 3:09 PM [facility] Platelet Count 167 150 - 420 x10E9/L 03/07/2024 3:09 PM [facility] MPV 10.7 7.8 - 11.4 fL 03/07/2024 3:09 PM [facility] Neutrophil % 81.2(H) 41.0 - 74.0 % 03/07/2024 3:09 PM [facility] Lymphocyte % 7.9(L) 17.0 - 47.0 % 03/07/2024 3:09 PM [facility] Monocyte % 7.0 3.0 - 11.0 % 03/07/2024 3:09 PM [facility] Eosinophil % 2.9 0.0 - 7.0 % 03/07/2024 3:09 PM [facility] Basophil % 0.3 0.0 - 1.6 % 03/07/2024 3:09 PM [facility] Immature Granulocytes % 0.7 0.0 - 1.0 % 03/07/2024 3:09 PM [facility] Neutrophil Absolute 9.93(H) 1.60 - 7.50 x10E9/L 03/07/2024 3:09 PM [facility] Lymphocyte Absolute 0.97(L) 1.00 - 4.40 x10E9/L 03/07/2024 3:09 PM [facility] Monocyte Absolute 0.85 0.15 - 1.00 x10E9/L 03/07/2024 3:09 PM CDT [facility] Eosinophil Absolute 0.35 0.00 - 0.60 x10E9/L 03/07/2024 3:09 PM CDT [facility] Basophil Absolute 0.04 0.00 - 0.13 x10E9/L 03/07/2024 3:09 PM CDT [facility] Blood BLOOD SPECIMEN / Unknown Venipuncture / Unknown 03/07/2024 12:50 PM CDT 03/07/2024 3:00 PM CDT us Glynn Narvaez MD LAB - HEMATOLOGY ORDERABLES Fin al Result Performing Organization Address City/State/[facility] Co de Phone Number [facility] [address] [place], [place] [phone] documented in this encounter Visit Diagnoses Not on filedocumented in this encounter Care Teams Landscape Drafter Relationship Specialty Start Date End Date Pee Decker MD [address] [place] [phone] PCP - General Internal Medicine 07/09/25 documented as of this encounter
--- OUTSIDE RECORDS SUMMARY | 2025-09-17 20:27 | XMS_ITS ---
Author Organization [facility] Address [address] [place] [address] Care Team Providers Care Director Retirement Name Role Phone Unknown, Notinfile Primary Care Provider Unavail able Dialysis Access Sites Type Status Location Placement Date Removal Da te AV fistula Active Right Forearm - Anterior Historical Dialysis Procedures Date BP Pre BP Post Weight Pre Weight Post Treatment Duration Start Time End Time Achieved BFR Vascular Access from Last 30 Days Procedures Procedure Name Priority Date/Time Associated Diagnosis [...] :10 PM CDT from Last 3 Months Allergies No known active allergies Medications aspirin [...] by mouth nightly 90 tablet 08/28/20 25 025 Active insulin lispro (HumaLOG, ADMELOG) 100 unit/mL [...] a day with meals 0 02/11/20 24 Discontinu ed(Alterna te therapy) thiamine (VITAMIN B-1) 50 mg tablet Take 2 tablets (100 mg total) by mouth daily Discontinu ed(Therapy completed) busPIRone (BUSPAR) 5 mg tabletIndications :Generalized Anxiety Disorder Take 2 tablets (10 mg total) by mouth 3 (three) times a day Discontinu ed(Stop Taking at Discharge) midodrine (PROAMATINE) 10 mg tablet Take 1 tablet (10 mg total) by mouth once Monday Discontinu ed(Alterna te therapy) QUEtiapine (SEROquel) 25 [...] (three) times a day as needed 05/05/20 25 Discontinu ed(Therapy completed) hydrALAZINE (APRESOLINE) 10 mg tabletIndications :hypertension Take 1 tablet (10 mg total) by mouth every 6 (six) hours as needed (Hypertension) Discontinu ed(Stop Taking at Discharge) amoxicillin-clavu lanate (AUGMENTIN) 875-125 mg per tabletIndications :Abdominal/Pelvic Infection Take 1 tablet (875 mg of amoxicillin total) by mouth every 12 (twelve) hours for 4 days 8 tablet 08/28/20 25 025 Active Problems Problem Noted Date Diagnosed Date [...] answer 08/25/2025 How often do you attend [facility] or ca[facility] services? Patient unable to answer 08/25/2025 Do you belong to any clubs o r organizations such as moravian groups, unions, fraternal or athletic groups, or [...] any time in the past 12 m [facility], were you homeless or living in a halfway (including now)? No 08/25/2025 [facility] Utilities Answer Date Recorded In the past [...] Mass Index 20.64 03/27/2024 12:48 PM CDT Results * POCT glucose (08/28/2025 5:08 PM CDT) Glucose, POC 151 70 - 199 mg/dL Blood 08/28/2025 5:08 PM CDT 08/28/2025 5:08 PM CDT Charley Underwood MD LAB POCT ORDERABLES - DEV ICE Final Result [facility] ([place]) 1 [facility] [place] [address] * POCT glucose (08/28/2025 1:16 PM CDT) Glucose, POC 116 70 - 199 mg/dL Blood 08/28/2025 1:16 PM CDT 08/28/2025 1:16 PM CDT Charley Underwood MD LAB POCT ORDERABLES - DEV ICE Final Result ANA MORALES ([place]) 1 [facility] [place] [address] * POCT glucose (08/28/2025 7:59 AM CDT) Glucose, POC 82 70 - 199 mg/dL Blood 08/28/2025 7:59 AM CDT 08/28/2025 7:59 AM CDT us Charley Underwood MD LAB POCT ORDERABLES - DEV ICE Final Result ANA MORALES ([place]) 1 [facility] [place] [address] * POCT glucose (08/28/2025 1:58 AM CDT) Glucose, POC 110 70 - 199 mg/dL Blood 08/28/2025 1:58 AM CDT 08/28/2025 1:58 AM CDT us Charley Underwood MD LAB POCT ORDERABLES - DEV ICE Final Result Performing Organization Address [facility] Co de Phone Number ANA MORALES ([place]) 1 [facility] [place] [address] * POCT glucose (08/27/2025 8:11 PM CDT) Glucose, POC 170 70 - 199 mg/dL Blood 08/27/2025 8:11 PM CDT 08/27/2025 8:11 PM CDT us Charley Underwood MD LAB POCT ORDERABLES - DEV ICE Final Result Performing Organization Address City/[facility]/ZIP Co de Phone Number ANA MORALES ([place]) 1 [facility] [place] [employer] [address] * POCT glucose (08/27/2025 5:25 PM CDT) Glucose, POC 107 70 - 199 mg/dL Blood 08/27/2025 5:25 PM CDT 08/27/2025 5:25 PM CDT us Charley Underwood MD LAB POCT ORDERABLES - DEV ICE Final Result ANA MORALES ([place]) 1 [facility] [place] [address] * POCT glucose (08/27/2025 12:21 PM CDT) Glucose, POC 90 70 - 199 mg/dL Blood 08/27/2025 12:2 1 PM CDT 08/27/2025 12:21 PM CDT us Charley Underwood MD LAB POCT ORDERABLES - DEV ICE Final Result Performing Organization Address City/[facility]/ZIP Co de Phone Number ANA MORALES ([place]) 1 [facility] [place] [address] * POCT glucose (08/27/2025 7:23 AM CDT) Glucose, POC 95 70 - 199 mg/dL Blood 08/27/2025 7:23 AM CDT 08/27/2025 7:23 AM CDT us Charley Underwood MD LAB POCT ORDERABLES - DEV ICE Final Result ANA MORALES ([place]) 1 [facility] [place] [address] * POCT glucose (08/27/2025 5:16 AM CDT) Glucose, POC 97 70 - 199 mg/dL Comment:Glu2: RN/ Notified Blood 08/27/2025 5:16 AM CDT 08/27/2025 5:16 AM CDT us Charley Underwood MD LAB POCT ORDERABLES - DEV ICE Final Result ANA MORALES ([place]) 1 [facility] [place] [address] * POCT glucose (08/27/2025 4:42 AM CDT) Glucose, POC 77 70 - 199 mg/dL Comment:Glu2: RN/ Notified Blood 08/27/2025 4:42 AM CDT 08/27/2025 4:42 AM CDT us Charley Underwood MD LAB POCT ORDERABLES - DEV ICE Final Result [facility] ([place]) 1 [facility] [place] [address] * (ABNORMAL) eGFR (08/27/2025 2:42 AM CDT) [...] BLOOD ORDERABLES Fi nal Result [facility] ([place]) 1 [facility] [place] [address] * Differential, auto (08/27/2025 2:42 AM CDT) [...] 2:42 AM CDT 08/27/2025 2:54 AM CDT Micheal Marie MD LAB BLOOD ORDERABLES Fi nal Result [facility] ([place]) 1 [facility] [place] [address] * (ABNORMAL) CBC with auto differential (08/27/2025 2:42 AM CDT) WBC 6.00 3.80 - 9.90 K/cumm Hgb 9.0(L) 13.0 - 17.5 g/dL [facility] ([place]) Hct 28.5(L) 38.9 - 50.3 % CERNER [...] 2:42 AM CDT 08/27/2025 2:54 AM CDT Micheal Marie MD LAB BLOOD ORDERABLES Fi nal Result Performing Organization Address City/[facility]/ZIP Co de Phone Number [facility] ([place]) 1 [facility] [place] [address] * (ABNORMAL) Comprehensive metabolic panel (08/27/2025 2:42 AM CDT) Sodium 139 135 - 145 [...] BLOOD ORDERABLES Fi nal Result ANA MORALES ([place]) 1 [facility] [place] [address] * POCT glucose (08/26/2025 11:58 PM CDT) Glucose, POC 96 70 - 199 mg/dL Comment:Glu2: RN/ Notified Blood 08/26/2025 11:5 8 PM CDT 08/26/2025 11:58 PM CDT Charley Underwood MD LAB POCT ORDERABLES - DEV ICE Final Result NAA MORALES ([place]) 1 [facility] [place] [address] * POCT glucose (08/26/2025 8:03 PM CDT) Glucose, POC 101 70 - 199 mg/dL Blood 08/26/2025 8:03 PM CDT 08/26/2025 8:03 PM CDT Charley Underwood MD LAB POCT ORDERABLES - DEV ICE Final Result ANA MORALES ([place]) 1 [facility] [place] [employer] [address] * POCT glucose (08/26/2025 5:09 PM CDT) Glucose, POC 194 70 - 199 mg/dL Blood 08/26/2025 5:09 PM CDT 08/26/2025 5:09 PM CDT Charley Underwood MD LAB POCT ORDERABLES - DEV ICE Final Result ANA MORALES ([place]) 1 [facility] [place] [address] * POCT glucose (08/26/2025 11:44 AM CDT) Pathologist [facility] Glucose, POC 90 70 - 199 mg/dL Blood 08/26/2025 11:4 4 AM CDT 08/26/2025 11:44 AM CDT Charley Underwood MD LAB POCT ORDERABLES - DEV ICE Final Result ANA MORALES ([place]) 1 [facility] [place] [address] * Sepsis Lactate w/ Reflex (08/26/2025 11:25 AM CDT) [facility] Sepsis Lactate 1.0 0.7 - 2.0 mmol/L Blood 08/26/2025 11:2 5 AM CDT 08/26/2025 11:29 AM CDT Charley Underwood MD LAB BLOOD ORDERABLES Shayla l Result Performing Organization Address City/[facility]/ZIP Co de Phone Number ANA MORALES ([place]) 1 [facility] [place] [address] * (ABNORMAL) eGFR (08/26/2025 10:40 AM CDT) [facility] eGFR 17(L) >=60 mL/min/1. 73 m2 Comment: [...] Charley Underwood MD LAB BLOOD ORDERABLES Shayla rodriguez Result [facility] ([place]) 1 [facility] [place] [address] * (ABNORMAL) CBC without differential (08/26/2025 10:40 [...] Charley Underwood MD LAB BLOOD ORDERABLES Shayla rodriguez Result [facility] ([place]) 1 [facility] [place] [address] * (ABNORMAL) Comprehensive metabolic panel (08/26/2025 10:40 [...] Charley Underwood MD LAB BLOOD ORDERABLES Shayla michael Result ANA MORALES ([place]) 1 [facility] [place] [address] * CT Head WO Contrast (08/26/2025 10:30 [...] Fabio Meng M.D. LC: [place] Report ID: [id number] Reading Location: [id number] Procedure Note Gin Meng MD - 08/26/2025 [...] Fabio Meng M.D. LC: [place] Report ID: [id number] Reading Location: [place] [address] Charley Underwood MD IMG CT PROCEDURES Final R esult * POCT glucose (08/26/2025 8:53 AM CDT) [facility] Glucose, POC 85 70 - 199 mg/dL Blood 08/26/2025 8:53 AM CDT 08/26/2025 8:53 AM CDT Charley Underwood MD LAB POCT ORDERABLES - DEV ICE Final Result [facility] [place]) 1 [facility] Department of Laboratories [place], [place] [id number] * (ABNORMAL) eGFR (08/26/2025 2:53 AM CDT) Pathologist [facility] eGFR 6(L) >=60 mL/min/1. 73 m2 Comment: [...] BLOOD ORDERABLES Fi nal Result [facility] ([place]) 1 [facility] [place] [address] * Differential, auto (08/26/2025 2:53 AM CDT) [...] MD LAB BLOOD ORDERABLES Fi nal Result [facility] ([place]) 1 [facility] [place] [address] * (ABNORMAL) CBC with auto differential (08/26/2025 2:53 AM CDT) WBC 5.60 3.80 - 9.90 K/cumm Hgb 9.2(L) 13.0 - 17.5 g/dL [facility] ([place]) Hct 29.0(L) 38.9 - 50.3 % [facility] ([place]) Plt 170 150 - 400 K/cumm [facility] ([place]) MPV 11.3 9.1 - 12.3 fL [facility] ([place]) RBC 3.02(L) 4.30 - 5.80 M/cumm [facility] ([place]) MCV 96.0 81.3 - 96.4 fL ANA MORALES ([place]) MCH 30.5 27.1 - 33.3 pg ANA MORALES ([place]) MCHC 31.7(L) 32.3 - 35.7 g/dL [facility] ([place]) RDW CV 14.8 11.1 - 14.9 % ANA MORALES ([place]) RDW SD 52.3(H) 35.7 - 48.1 fL ANA MORAL[facility] ([place]) NRBC abs 0.00 0.00 - 0.01 K/cumm ANA MORALES ([place]) Blood 08/26/2025 2:53 AM CDT 08/26/2025 3:41 AM CDT us Micheal Marie MD LAB BLOOD ORDERABLES Fi nal Result ANA MORALES ([place]) 1 [facility] [place] [address] * Hepatitis panel, acute Blood (08/26/2025 2:53 AM CDT) Hep A IgM Nonreactive Nonreactive Comment: Interpretive Data: If Hep A IgM Ab is reported as Equivocal, a new sample should be drawn in two weeks for testing. Current interpretive data was last revised on 20. Testing performed by: [facility], [address] [place] [address]., [id number] Hep B core IgM Nonreactive Nonreactive C [facility] ([place]) Comment: Interpretive Data If HepB Core IgM Ab is reported as Equivocal, a new sample should be drawn in two weeks for testing. Current interpretive data was last revised on 20. Testing performed by: [facility], [address] [place] [address]., [address] Hep C Ab Nonreactive Nonreactive ANA [facility] ([place]) Comment: Interpretive Data Nonreactive: Antibodies to [...] last revised on 2020. Testing performed by: [address] [address] HepBsAg Nonreactive Nonreactive ANA MORALES ([place]) Comment:Testing performed by : [address] [address] Blood 08/26/2025 2:53 AM CDT 08/26/2025 9:39 AM CDT us Jimmy Keene MD LAB MICROBIOLOGY - GENER AL ORDERABLES Final Result Performing Organization Address City/[facility] Co de Phone Number ANA MORALES ([place]) 1 [facility] [place] [address] * Hepatitis B surface antibody (immune status) Blood (08/26/2025 2:53 AM CDT) HBsAb (immune status) Reactive Comment: Interpretive Data [...] last revised on 20. Testing performed by: [address] [address] HBsAb (immune status) index 86.8 mIUnits/m L ANA MORALES ([place]) Comment:Testing performed by : [address] [address] Blood 08/26/2025 2:53 AM CDT 08/26/2025 9:39 AM CDT us Jimmy Keene MD LAB MICROBIOLOGY - GENER AL ORDERABLES Final Result [facility] ([place]) 1 [facility] [place] [address] * (ABNORMAL) Comprehensive metabolic panel (08/26/2025 2:53 [...] BLOOD ORDERABLES Fi nal Result ANA MORALES ([place]) 1 [facility] [place] [address] * POCT glucose (08/26/2025 1:53 AM CDT) Glucose, POC 93 70 - 199 mg/dL Blood 08/26/2025 1:53 AM CDT 08/26/2025 1:53 AM CDT us Darshana Kebede MD LAB POCT ORDERABLES - DEVICE Fin al Result Performing Organization Address City/[facility] Co de Phone Number ANA MORALES ([place]) 1 [facility] [place] [address] * POCT glucose (08/25/2025 9:11 PM CDT) Glucose, POC 105 70 - 199 mg/dL Blood 08/25/2025 9:11 PM CDT 08/25/2025 9:11 PM CDT us Darshana Kebede MD LAB POCT ORDERABLES - DEVICE Fin al Result Performing Organization Address City/[facility]/ZIP Co de Phone Number ANA MORALES ([place]) 1 [facility] [place] [address] * POCT glucose (08/25/2025 5:12 PM CDT) Glucose, POC 150 70 - 199 mg/dL Blood 08/25/2025 5:12 PM CDT 08/25/2025 5:12 PM CDT us Darshana Kebede MD LAB POCT ORDERABLES - DEVICE Fin al Result ANA MORALES ([place]) 1 [facility] [place] [address] * POCT glucose (08/25/2025 12:30 PM CDT) Glucose, POC 122 70 - 199 mg/dL Blood 08/25/2025 12:3 0 PM CDT 08/25/2025 12:30 PM CDT Darshana Kebede MD LAB POCT ORDERABLES - DEVICE Fin al Result Performing Organization Address City/[facility]/ZIP Co de Phone Number ANA MORALES ([place]) 1 [facility] [place] [address] * POCT glucose (08/25/2025 7:46 AM CDT) Glucose, POC 102 70 - 199 mg/dL Blood 08/25/2025 7:46 AM CDT 08/25/2025 7:46 AM CDT us Darshana Kebede MD LAB POCT ORDERABLES - DEVICE Fin al Result Performing Organization Address [facility] Co de Phone Number ANA [facility] ([place]) 1 [facility] [place] [address] * POCT glucose (08/25/2025 2:02 AM CDT) Glucose, POC 102 70 - 199 mg/dL Blood 08/25/2025 2:02 AM CDT 08/25/2025 2:02 AM CDT Micheal Marie MD LAB POCT ORDERABLES - D EVICE Final Result Performing Organization Address City/[facility] Co de Phone Number ANA MORALES ([place]) 1 [facility] [place] [address] * (ABNORMAL) Troponin T high-sensitivity 6-hour (08/25/2025 12:20 AM CDT) Trop T hs 78(H) <=22 ng/L ANA MORALES ([place]) Comment: Interpretive Data For further hscTnT resources including the diagnostic algorithm and an aid in interpretation, copy and paste this link: https://nrl.testcatalog.org/show/hsTrop Current Interpretive Data last revised 2020. Trop T hs delta -4 ng/L [facility] ([place]) Trop T hs interp Insignificant [facility] ([place]) Blood 08/25/2025 12:2 0 AM CDT 08/25/2025 12:23 AM CDT us Jian Alba MD LAB BLOOD ORDERABLES Final Result Performing Organization Address City/State/[facility] Co de Phone Number ANA MORALES ([place]) 1 [facility] [place] [address] * (ABNORMAL) eGFR (08/25/2025 12:20 AM CDT) [...] of Race in Diagnosing Kidney Disease, JASN 2021). The CKD-EPI equation should not be used for patients with unstable renal function and has not been validated in children and those over 70. Current interpretive data was last reviewed 2021. Blood 08/25/2025 12:2 0 AM CDT 08/25/2025 12:23 AM CDT us Micheal Marie MD LAB BLOOD ORDERABLES Fi nal Result [facility] ([place]) 1 [facility] [place] [address] * (ABNORMAL) Differential, auto (08/25/2025 12:20 AM [...] nal Result [facility] ([place]) 1 [facility] [place] [address] * (ABNORMAL) CBC with auto differential (08/25/2025 [...] nal Result ANA MORALES ([place]) 1 [facility] [place] [address] * Magnesium (08/25/2025 12:20 AM CDT) Magnesium 2.3 1.4 - 2.5 mg/dL [facility] ([place]) Blood 08/25/2025 12:2 0 AM CDT 08/25/2025 12:23 AM CDT us Micheal Marie MD LAB BLOOD ORDERABLES Fi nal Result Performing Organization Address City/[facility] Co de Phone Number ANA MORALES ([place]) 1 [facility] [place] [employer] [place] [address] * (ABNORMAL) Comprehensive metabolic panel (08/25/2025 12:20 AM CDT) Sodium 137 135 - 145 mmol/L [facility] ([place]) Potassium, pl 3.7 3.3 - 4.9 mmol/L [facility] ([place]) Chloride 96(L) 97 - 110 mmol/L [facility] ([place]) CO2 29 22 - 32 mmol/L [facility] ([place]) Anion gap 12 2 - 15 mmol/L [facility] ([place]) BUN 18 6 - 25 mg/dL [facility] ([place]) Creatinine 6.49(H) 0.80 - 1.30 mg/dL [facility] ([place]) Glucose 116 70 - 199 mg/dL [facility] ([place]) Comment: Interpretive Data Fasting glucose [...] ORDERABLES Fi nal Result Performing Organization Address [facility]/ZIP Co de Phone Number [facility] ([place]) 1 [facility] [place] [address] * (ABNORMAL) Troponin T high-sensitivity 4-hour (08/24/2025 10:44 PM CDT) Trop T hs 82(H) <=22 ng/L [facility] ([place]) Comment: Interpretive Data For further [...] BLOOD ORDERABLES Final Result Performing Organization Address City/[facility]/ZIP Co de Phone Number [facility] ([place]) 1 [facility] [place] [address] * POCT glucose (08/24/2025 9:07 PM CDT) Glucose, POC 101 70 - 199 mg/dL Blood 08/24/2025 9:07 PM CDT 08/24/2025 9:07 PM CDT Micheal Marie MD LAB POCT ORDERABLES - D EVICE Final Result Performing Organization Address City/[facility]/ZIP Co de Phone Number [facility]NA [facility] ([place]) 1 [facility] [place] [address] * ABO / Rh Confirmation Testing (08/24/2025 8:55 PM CDT) ABO/Rh Confirmation A Positive [facility] Blood 08/24/2025 8:55 PM CDT 08/24/2025 8:58 PM CDT us Jian Alba MD LAB BLOOD ORDERABLES Final Result Performing Organization Address [facility] Co de Phone Number ANA [facility] ([place]) [address] [place] [address] AMH * (ABNORMAL) Urinalysis reflex to microscopic [...] tendency for uric acid stone formation. Source: [employer] Current Interpretive Data was last revised on 2017 Protein, ur ql 2+(A) Negative [facility] ([place]) Glucose, ur ql 1+(A) Negative [facility] ([place]) Ketones, ur Negative Negative [facility] ([place]) Bilirubin, ur Negative Negative [facility] ([place]) Blood, ur Negative Negative [facility] ([place]) Urobilinogen, ur <2.0 <2.0 mg/dL [facility] ([place]) Nitrite, ur Negative Negative [facility] ([place]) Leukocyte esterase, ur Negative Negative [facility] ([place]) UA reflex comment Reflex to microscopic UA will be performed. [facility] ([place]) Urine 08/24/2025 8:24 PM CDT 08/24/2025 8:28 PM CDT us Micheal Marie MD LAB MICROBIOLOGY - GENE RAL ORDERABLES Final Result Performing Organization Address [facility]/ZIP Co de Phone Number ANA MORALES ([place]) 1 [facility] [place] [address] * (ABNORMAL) Urinalysis, microscopic only (08/24/2025 8:24 PM CDT) WBC, ur 0-5 0 - 5 /HPF RBC, ur 0-2 0 - 2 /HPF [facility] ([place]) Bacteria, ur Trace(A) [facility] ([place]) Culture Reflex Comment Reflex conditions for urine culture (WBC >10) not met. [facility] ([place]) Urine 08/24/2025 8:24 PM CDT 08/24/2025 8:28 PM CDT us Jian Alba MD LAB URINE ORDERABLES Final Result ANA MORALES ([place]) 1 [facility] [place] [address] * (ABNORMAL) Troponin T high-sensitivity 2-hour (08/24/2025 7:51 PM CDT) Trop T hs 78(H) <=22 ng/L [facility] ([place]) Comment: Interpretive Data For further hscTnT resources including the diagnostic algorithm and an aid in interpretation, copy and paste this link: https://nrl.testcatalog.org/show/hsTrop Current Interpretive Data last revised 2020. Trop T hs delta See Comment ng/L CE [facility] CAR[facility] ([place]) Comment: Inappropriate collection time to report a delta. Testing performed by: [facility], [facility], [place], [address] Trop T hs pct delta See Comment % ANA CARMEN ([place]) Comment: Inappropriate collection time to report a delta. Testing performed by: [facility], [facility], [place], [address] Trop T hs interp See Comment C ERNGORDO MROALES ([place]) Comment: Inappropriate collection time to report a delta. Testing performed by: [facility], [place], [address] Blood 08/24/2025 7:51 PM CDT 08/24/2025 8:00 PM CDT Jian Alba MD LAB BLOOD ORDERABLES Final Result Performing Organization Address City/[facility]/ZIP Co de Phone Number ANA CARMEN ([place]) [address] [place] [address] [place] [address] * POCT glucose (08/24/2025 7:49 PM CDT) Glucose, POC 91 70 - 199 mg/dL Blood 08/24/2025 7:49 PM CDT 08/24/2025 7:49 PM CDT Jian Alba MD LAB POCT ORDERABLES - DEVIC E Final Result ANA MORALES ([place]) [address] [place] [address] [place] [address] * Blood culture Blood (08/24/2025 7:29 PM CDT) Report Final Report: No growth Comment:Testing performed by : [facility], [address] [facility], [place]., [address] Blood 08/24/2025 7:29 PM CDT 08/25/2025 2:10 AM CDT Narrative ANA MORALES ([place]) - 08/29/2025 7:00 AM CDT Received only [...] performance characteristics have been verified by the [facility]. For questions about this culture, contact the Microbiology Laboratory at [phone]. Interpretive data was last revised on 24. Jian Alba MD LAB MICROBIOLOGY - GENERAL ORDERABLES Final Result ANA MORALES ([place]) 1 [facility] [place] [address] * Blood culture Blood (08/24/2025 7:18 PM CDT) Report Final Report: No growth Comment:Testing performed by : [facility], [address] [facility], [place]., [address] Blood 08/24/2025 7:18 PM CDT 08/25/2025 2:09 [...] performance characteristics have been verified by the [facility]. For questions about this culture, contact the Microbiology Laboratory at [phone]. Interpretive data was last revised on 24. Jain Alba MD LAB MICROBIOLOGY - GENERAL ORDERABLES Final Result Performing Organization Address City/[facility] Co de Phone Number ANA MORALES [place] 1 [facility] Department of Laboratories [place] [id number] * ECG 12 lead (08/24/2025 7:01 PM CDT) 08/24/2025 7:01 PM CDT Narrative [facility] - 08/25/2025 6:43 AM CDT Vent Rate: 64 bpm RR Interval: 926 msec GA Interval: 167 msec QRS Duration: 126 msec QT Interval: 449 msec QTC Interval: 459 msec P-R-T [place]: -6 - 2 - 36 degrees IMPRESSION: SINUS RHYTHM WITH OCCASIONAL VENTRICULAR PREMATURE COMPLEXES RIGHT BUNDLE BRANCH BLOCK [120+ ms QRS DURATION, UPRIGHT V1, 40+ ms S IN I/aVL/V4/V5/V6] ABNORMAL ECG NO CHANGE FROM PREVIOUS TRACING NOTED Electronically Signed By: Yonatan Rocha MD Jian Alba MD ECG ORDERABLES Final Resul t Performing Organization Address City/[facility]/ZIP Co de Phone Number [facility] * XR Chest 1 Vw Portable (08/24/2025 7:00 PM CDT) Anatomical Region Laterality Modality Body, Chest N/A Computed Radiogr aphy 08/24/2025 7:19 PM CDT Narrative 08/24/2025 7:20 PM CDT EXAM DESCRIPTION: XR CHEST 1 VIEW REASON FOR STUDY: Abd pain, unspecified Pt arrives by [facility]. EMS called for low blood sugar, BG 100 per EMS. Pt mostly speaks O[place]i. Pt has abdominal pain. Pt refused dialysis [...] 7:20 PM - Electronically signed by Jacky Hoang M.D. KH: MAGUE Report ID: [id number] Reading Location: [id number] Procedure Note Jacky Hoang MD - 08/24/2025 EXAM DESCRIPTION: XR CHEST 1 VIEW REASON FOR STUDY: Abd pain, unspecified Pt arrives by [facility]. EMS called for low blood sugar, BG 100per EMS. Pt mostly speaks [place]i. Pt has abdominal pain. Pt refuseddialysis at [...] signed by Jacky BOWSER: MAGUE Report ID: [id number] Reading Location: [id number] Jian Alba MD IMG XR PROCEDURES Final Res ult * XR Kub (Abd 1 View) (08/24/2025 7:00 PM CDT) Anatomical Region Laterality Modality Body, Abdomen N/A Computed Radiogr aphy 08/24/2025 7:20 PM CDT Narrative 08/24/2025 7:21 PM CDT EXAM DESCRIPTION: XR KUB REASON FOR STUDY: Abd pain, unspecified Pt arrives by [facility]. EMS called for low blood sugar, BG 100 per EMS. Pt mostly speaks [place]i. Pt has abdominal pain. Pt refused dialysis at some point for EMS. Pt from [facility]. TECHNIQUE: 2 radiographic view of the abdomen. COMPARISON: 04/23/2025 FINDINGS: BOWEL: Nonobstructive gas pattern. Moderate amount of stool is noted. No evidence of ileus or obstruction is seen. SOFT TISSUES: No abnormal calcifications. LINES/TUBES: None. BONES: No acute osseous abnormality. IMPRESSION: No acute abnormality THIS IS AN ELECTRONICALLY VERIFIED FINAL REPORT 08/24/2025 7:21 PM - Electronically signed by Jacky BOWSER: MAGUE Report ID: [id number] Reading Location: [id number] Procedure Note Jacky Hoang MD - 08/24/2025 EXAM DESCRIPTION: XR KUB REASON FOR STUDY: Abd pain, unspecified Pt arrives by [facility]. EMS called for low blood sugar, BG 100per EMS. Pt mostly speaks [place]i. Pt has abdominal pain. Pt refuseddialysis at some point for EMS. Pt from [facility]. TECHNIQUE: 2 radiographic view of the abdomen. [...] Jacky Hoang M.D. KH: MAGUE Report ID: [id number] Reading Location: [place] [address] Jian Alba MD IMG XR PROCEDURES Final Res ult * Sepsis Lactate w/ Reflex (08/24/2025 6:57 PM CDT) Pathologist [facility] [place] Sepsis Lactate 1.0 0.7 - 2.0 mmol/L Blood 08/24/2025 6:57 PM CDT 08/24/2025 7:17 PM CDT Jian Alba MD LAB BLOOD ORDERABLES Final Result ANA MORALES ([place]) 1 [facility] Department of Laboratories [place], [place] [id number] * (ABNORMAL) Pro B-type natriuretic peptide (08/24/2025 6:57 PM CDT) NT-proBNP 24,728(H) <=300 pg/mL ANA MORALES ([place]) Comment: Interpretive Comments: A. Dyspnea in Acute [...] et.al. Eur Heart J. 2006:27:330-337. 2. Leah CELESTIN, Clarisse MILLER. J. AM Martine Cardiol: Cardiovasc Imag. 2009;2: 216- 225. Interpretive Data Last Revised Date: 2018. Blood 08/24/2025 6:57 PM CDT 08/24/2025 7:17 PM CDT Jian Alba MD LAB BLOOD ORDERABLES Final Result Performing Organization Address City/[facility]/ZIP Co de Phone Number ANA MORALES ([place]) 1 [facility] [place] [employer] [place] [address] * ABO/Rh (08/24/2025 6:57 PM CDT) ABO/Rh A Positive Blood 08/24/2025 6:57 PM CDT 08/24/2025 7:17 PM CDT Narrative ANA MORALES ([place]) - 08/24/2025 8:04 PM CDT Has the patient had Daratumumab or Isatuximab in the past 6 months?->Unknown Jian Alba MD LAB BLOOD BANK TEST ORDERAB LES Final Result ANA MORALES ([place]) 1 [facility] [place] [place] [address] * aPTT (08/24/2025 6:57 PM CDT) aPTT 28 26 - 38 sec ANA MORALES ([place]) Comment: Interpretive Data Heparin therapeutic range: 66.0 - 100.0 seconds. Range based on correlation with therapeutic heparin activity range of 0.3 - 0.7 Units/mL. Current interpretive data was last revised on 2023. Blood 08/24/2025 6:57 PM CDT 08/24/2025 7:01 PM CDT Jian Alba MD LAB BLOOD ORDERABLES Final Result Performing Organization Address [facility] Co de Phone Number ANA [facility] ([place]) 1 [facility] [place] [address] * Protime-INR (08/24/2025 6:57 PM CDT) PT 11.4 10.2 - 13.5 sec AAN MORALES ([place]) INR 1.01 0.90 - 1.20 ANA MORALES ([place]) Comment: Interpretive data Oral anticoagulant therapeutic ranges: Venous thromboembolism prophylaxis or treatment: 2.0-3.0 CARDIOLOGY Standard range: 2.0-3.0 High-intensity range: 2.5-3.5 Refer to indication-specific guidelines for appropriate target ranges for prosthetic heart valve replacement. Current interpretive data was last revised on 2019. Blood 08/24/2025 6:57 PM CDT 08/24/2025 7:01 PM CDT Jian Alba MD LAB BLOOD ORDERABLES Final Result Performing Organization Address City/[facility] Co de Phone Number ANA [facility] ([place]) 1 [facility] [place] [place] [address] * Antibody screen (08/24/2025 6:57 PM CDT) Shandra, indirect, Gel Interpretation Negative ABSC Blood 08/24/2025 6:57 PM CDT 08/24/2025 7:17 PM CDT Narrative ANA MORALES ([place]) - 08/24/2025 8:04 PM CDT Has the patient had Daratumumab or Isatuximab in the past 6 months?->Unknown Jian Alba MD LAB BLOOD BANK TEST ORDERAB LES Final Result ANA MORALES ([place]) 1 [facility] [place] [employer] [place] [address] * CRP (acute phase) (08/24/2025 6:57 PM CDT) CRP 6.0 <=10.0 mg/L ANA Cruz ([place]) Blood 08/24/2025 6:57 PM CDT 08/24/2025 7:17 PM CDT Jian Alba MD LAB BLOOD ORDERABLES Final Result Performing Organization Address [facility] de Phone Number ANA MORALES ([place]) 1 [facility] [place] [address] * CT Chest Abdomen Pelvis WO Contrast [...] Jacky Hoang M.D. KH: MAGUE Report ID: [id number] Reading Location: [place] [address] Procedure Note Jacky Hoang MD - 08/24/2025 [...] Jacky Hoang M.D. KH: MAGUE Report ID: [id number] Reading Location: [id number] Jian Alba MD IMG CT PROCEDURES Final [...] signed by Jacky BOWSER: MAGUE Report ID: [id number] Reading Location: [id number] Procedure Note Jacky Hoang MD - 08/24/2025 [...] signed by Jacky BOWSER: MAGUE Report ID: [id number] Reading Location: [id number] Jian Alba MD IMG CT PROCEDURES Final Res ult * (ABNORMAL) [...] Alba MD LAB BLOOD ORDERABLES Final Result [facility] M[facility]AL[facility] ([place]) 1 [facility] [place] [address] * (ABNORMAL) eGFR (08/24/2025 6:22 PM CDT) [...] Alba MD LAB BLOOD ORDERABLES Final Result [facility] ([place]) 1 [facility] [place] [address] * Differential, auto (08/24/2025 6:22 PM CDT) Neutrophil abs 5.12 1.50 - 6.50 K/cumm Imm gran abs 0.02 0.00 - 0.10 K/cumm [facility] ([place]) Lymphocyte abs 1.00 0.80 - 3.30 K/cumm [facility] ([place]) Monocyte abs 0.41 0.20 - 0.80 K/cumm [facility] ([place]) Eosinophil abs 0.27 0.00 - 0.50 K/cumm [facility] ([place]) Basophil abs 0.04 0.00 - 0.10 K/cumm [facility] ([place]) Neutrophil pct 74.6 % [facility] ([place]) Comment: Interpretive Data Percent cell count reference ranges are not reported, since discordance with absolute values may lead to misinterpretation of CBC data. Current Interpretive Data was last revised on 2018. Imm gran pct 0.3 % [facility] ([place]) Comment: Interpretive Data Percent cell count reference ranges are not reported, since discordance with absolute values may lead to misinterpretation of CBC data. Current Interpretive Data was last revised on 2018. Lymphocyte pct 14.6 % [facility] ([place]) Comment: Interpretive [...] Final Result [facility] ([place]) 1 [facility] [place] [address] * (ABNORMAL) CBC with auto differential (08/24/2025 [...] NRBC abs 0.00 0.00 - 0.01 K/cumm [facility] ([place]) Blood Venous blood specimen / Unknown 08/24/2025 6:22 PM CDT 08/24/2025 6:29 PM CDT Jian Alba MD LAB BLOOD ORDERABLES Final Result [facility] ([place]) 1 [facility] [place] [employer] [place] [address] * Lipase (08/24/2025 6:22 PM CDT) Pathologist [facility] [place] Lipase 20 10 - 99 Units/L [facility] [place] ([place]) Blood Venous blood specimen / Unknown 08/24/2025 6:22 PM CDT 08/24/2025 6:29 PM CDT Jian Alba MD LAB BLOOD ORDERABLES Final Result Performing Organization Address City/[facility]/ZIP Co de Phone Number [facility] [place] ([place]) 1 [facility] [place] [address] * (ABNORMAL) Comprehensive metabolic panel (08/24/2025 6:22 PM CDT) Sodium 137 135 - 145 mmol/L [facility] [place] ([place]) Potassium, pl 3.5 3.3 - 4.9 mmol/L [facility] [place] ([place]) Chloride 96(L) 97 - 110 mmol/L [facility] ([place]) CO2 29 22 - 32 mmol/L [facility] ([place]) Anion gap 12 2 - 15 mmol/L [facility] ([place]) BUN 16 6 - 25 mg/dL [facility] [place] ([place]) Creatinine 6.21(H) 0.80 - 1.30 mg/dL [facility] ([place]) Glucose 90 70 - 199 mg/dL [facility] ([place]) Comment: Interpretive Data Fasting glucose [...] Final Result ANA MORALES ([place]) 1 [facility] [place] [address] * ECG 12 lead (08/24/2025 6:10 PM CDT) 08/24/2025 6:10 PM CDT Narrative [facility] - 08/25/2025 6:43 AM CDT Vent Rate: 57 bpm RR Interval: 1049 msec GA Interval: 179 msec QRS Duration: 128 msec QT Interval: 474 msec QTC Interval: 467 msec P-R-T [place]: -24 - -1 - 23 degrees IMPRESSION: SINUS BRADYCARDIA WITH OCCASIONAL VENTRICULAR PREMATURE COMPLEXES RIGHT BUNDLE BRANCH BLOCK [120+ ms QRS DURATION, UPRIGHT V1, 40+ ms S IN I/aVL/V4/V5/V6] ABNORMAL ECG NO CHANGE FROM PREVIOUS TRACING NOTED Electronically Signed By: Yonatan Rocha MD Jian Alba MD ECG ORDERABLES Final Resul t [facility] * POCT glucose (08/24/2025 6:10 PM CDT) Glucose, POC 93 70 - 199 mg/dL Blood 08/24/2025 6:10 PM CDT 08/24/2025 6:10 PM CDT us Notinfile Unknown LAB POCT ORDERABLES - DEVICE F inal Result ANA [facility] ([place]) 1 [facility] [place] [address] from Last 3 Months
--- OUTSIDE RECORDS SUMMARY | 2025-09-17 20:27 | XMS_ITS | Clinical Summary ---
Author Organization [facility] [employer] Address [address] [place] [address] Care Team Providers Care Floriculture Professor Name Role Phone Pee Decker MD Primary Care Provider + [phone] Source Comments [facility] [employer]non-owned Affiliates and Associated Physician Practices is amultiple site organization consisting of ambulatory clinics and hospital sitesin [place], [place], [place] and [place]. This disclosure is being madepursuant to the Care Everywhere program and may not contain all information available regarding this patient. Last updated 18.[employer] Allergies No known active allergies Medications * [...] and recent self extubation - continue with BINDING NICKER therapy -advanced diet to modified consistency and thin liquid -Monitor fro signs of aspiration - nutrition consult Assessment & Plan (05/03/2025 4:34 PM CDT): In the setting of dementia and recent self extubation - continue with BINDING NICKER therapy -advanced diet to modified consistency and thin liquid -Monitor fro signs of aspiration - nutrition consult Assessment & Plan (05/02/2025 3:06 PM CDT): In the setting of dementia and recent self extubation - continue with BINDING NICKER therapy - NPO for now due to [...] CDT - 07/07/2025 6:47 PM CDT Emergency [facility] [address] [place] [phone] Marco Narvaez MD Byrne, Laurie E, MD Agitation (Primary Dx); Altered mental status, unspecified altered mental status type; ESRD (end stage renal disease) ([facility]) Discharge Disposition: Alf Facility from Last 3 Months Social History [...] and heating? Not hard at all 04/28/2025 [facility] Occupat ional Health - Occupational Stress [...] any time in the past 12 m [facility], were you homeless or living in a intermediate (including now)? 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 > Dictated by Domingo Lugo M.D. vice president of news > Dictated by [employer], Lora Driver MD have personally reviewed and interpreted this examination/study. > Interpreting Provider: Lora Driver MD on 07/07/2025 2:04 PM Narrative 07/07/2025 2:04 PM CDT PROCEDURE: CT HEAD WO CONTRAST, DATE/TIME OF EXAM: 07/07/2025 1:30 PM, LOCATION [facility] INDICATION: R41.82: Altered mental status, unspecified altered [...] DATE/TIME OF EXAM: 07/07/2025 1:30 PM, LOCATION [facility] INDICATION: R41.82: Altered mental status, unspecified altered [...] high. > Dictated by Domingo Lugo M.D. vice president of news > Dictated by [employer], Lora Driver MD have personally reviewed and interpreted this examination/study. > Interpreting Provider: Lora Driver MD on 07/07/2025 2:04 PM Marco [address] MD CT ORDERABLES Final Result * EKG 12-LEAD (07/07/2025 12:24 PM CDT) Ventricular Rate 82 BPM [facility] Atrial Rate 82 BPM [facility] P-R Interval 198 ms [facility] QRS Duration ms 142 ms [facility] Q-T Interval ms 430 ms [facility] QTC Calculation (Bezet) 502 ms [facility] Calculated R [place] -158 degrees SL MUSE Calculated T [place] -176 degrees [facility] Interpretation EKG NORMAL SINUS RHYTHM RIGHT BUNDLE BRANCH BLOCK T WAVE ABNORMALITY, CONSIDER INFERIOR ISCHEMIA ABNORMAL ECG NO PREVIOUS ECGS AVAILABLE Confirmed by ANIKA RILEY MD ([id number]) on 07/13/2025 7:56:05 PM [facility] 07/07/2025 12:2 4 PM CDT 07/13/2025 7:56 PM CDT Marco Narvaez MD ECG ORDERABLES Edited Result - Final [facility] * TROPONIN-I HIGH SENSITIVE REFLEX 1HOUR (07/07/2025 12:17 PM CDT) Troponin I High Sensitive 19 <=35 ng/L 07/07/2025 1:03 PM CDT [facility] Delta Troponin I HS 07/07/2025 1:03 PM CDT [facility] Comment:Delta value intentio kayla not calculated. Baseline to 1 hour specimen collection interval exceeded. Blood BLOOD SPECIMEN / Unknown Venipuncture / Unknown 07/07/2025 12:17 PM CDT 07/07/2025 12:27 PM CDT us Marco Narvaez MD LAB - CHEMISTRY ORDERABLES Final Result Performing Organization Address City/[facility]/ZIP Co de Phone Number [address] [address], [facility] [phone] * LACTIC ACID BLOOD REFLEX TO REPEAT (07/07/2025 12:17 PM CDT) Only the most recent of2 resultswithin the time period is included. Lactic Acid-Stat 1.3 <=2.0 mmol/L 07/07/2025 12:55 PM CDT [facility] Blood BLOOD SPECIMEN / Unknown Venipuncture / Unknown 07/07/2025 12:17 PM CDT 07/07/2025 12:28 PM CDT us Marco Narvaez MD LAB - CHEMISTRY ORDERABLES Final Result Performing Organization Address City/[facility] Co de Phone Number [address] [address], [facility] [phone] * XR CHEST 1VW PORTABLE (07/07/2025 10:38 AM CDT) Anatomical Region Laterality Modality Chest Digital Radiogra phy 07/07/2025 10:4 0 AM CDT Impressions 07/07/2025 11:13 AM CDT IMPRESSION: Minimal basilar atelectasis, otherwise no acute cardiopulmonary abnormality. Report dictated by Rosalind Norman M.D., [vice president of news'. > Dictated by [employer], Letty Oconnor MD have personally reviewed and interpreted this examination/study. > Interpreting Provider: Letty Oconnor MD on 07/07/2025 11:13 AM Narrative 07/07/2025 11:13 AM CDT PROCEDURE: XR CHEST 1VW PORTABLE, DATE/TIME OF EXAM: 07/07/2025 10:38 AM, LOCATION [facility] INDICATION: R41.82: Altered mental status, unspecified altered [...] PORTABLE, DATE/TIME OF EXAM: 07/07/2025 10:38AM, LOCATION [facility] INDICATION: R41.82: Altered mental status, unspecified altered [...] abnormality. Report dictated by Rosalind Norman M.D., [vice president of news'. > Dictated by [employer] I, Letty Oconnor MD have personally reviewed and interpreted this examination/study. > Interpreting Provider: Letty Oconnor MD on 07/07/2025 11:13 AM Marco Narvaez MD DIAGNOSTIC IMAGING ORDERABLES Fi nal Result * (ABNORMAL) URINALYSIS REFLEX MICROSCOPIC REFLEX CULTURE (07/07/2025 10:19 AM CDT) Color UA Colorless(A) Yellow, Straw 07/07/2025 10:38 AM CDT [facility] Clarity UA Clear Clear 07/07/2025 10:38 AM CDT [facility] Glucose UA 2+(A) Normal 07/07/2025 10:38 AM CDT [facility] Bilirubin UA Negative Negative 07/07/2025 10:38 AM [facility] Ketone UA Negative Negative 07/07/2025 10:38 AM [facility] Specific [place] UA 1.008 1.005 - 1.030 07/07/2025 10:38 AM [facility] Blood UA Negative Negative 07/07/2025 10:38 AM [facility] pH UA 8.0 5.0 - 8.0 07/07/2025 10:38 AM [facility] Protein UA 2+(A) Negative 07/07/2025 10:38 AM [facility] Urobilinogen UA Normal Normal mg/dL 07/07/2025 10:38 AM [facility] Nitrite UA Negative Negative 07/07/2025 10:38 AM [facility] Leukocyte Esterase UA Negative Negative 07/07/2025 10:38 AM [facility] RBC UA 3-5 0 - 5 # /hpf 07/07/2025 10:38 AM [facility] WBC UA 0-5 0 - 5 # /hpf 07/07/2025 10:38 AM [facility] Bacteria UA None Seen None Seen 07/07/2025 10:38 AM [facility] Squamous Epithelial Cells 0-2 0 - 5 /hpf 07/07/2025 10:38 AM [facility] Reflex Status Culture not indicated 07/07/2025 10:38 AM [facility] Urine URINE SPECIMEN OBTAINED BY SINGLE CATHETERIZATION OF URINARY BLADDER / Unknown Collection / Unknown 07/07/2025 10:19 AM CDT 07/07/2025 10:[address] [facility] us Marco Narvaez MD LAB - URINALYSIS ORDERABLES Shayla l Result [facility] [address] [place] [address], [facility] [phone] * (ABNORMAL) CBC W AUTO DIFFERENTIAL (07/07/2025 10:17 AM CDT) WBC 6.9 4.0 - 10.7 x10E9/L 07/07/2025 10:29 AM [facility] RBC Count 2.89(L) 4.30 - 5.80 x10E12/L 07/07/2025 10:29 AM [facility] Hemoglobin 8.9(L) 13.3 - 17.5 g/dL 07/07/2025 10:29 AM [facility] Hematocrit 27.1(L) 38.7 - 51.1 % 07/07/2025 10:29 AM [facility] MCV 93.8 80.0 - 98.0 fL 07/07/2025 10:29 AM [facility] MCH 30.8 26.7 - 33.6 pg 07/07/2025 10:29 AM [facility] MCHC 32.8 31.7 - 36.3 g/dL 07/07/2025 10:29 AM [facility] RDW-CV 13.8 11.3 - 14.8 % 07/07/2025 10:29 AM [facility] Platelet Count 204 150 - 420 x10E9/L 07/07/2025 10:29 AM [facility] MPV 11.0 7.8 - 11.4 fL 07/07/2025 10:29 AM [facility] Neutrophil % 85.1(H) 41.0 - 74.0 % 07/07/2025 10:29 AM [facility] Lymphocyte % 8.1(L) 17.0 - 47.0 % 07/07/2025 10:29 AM [facility] Monocyte % 4.5 3.0 - 11.0 % 07/07/2025 10:29 AM [facility] Eosinophil % 1.6 0.0 - 7.0 % 07/07/2025 10:29 AM [facility] Basophil % 0.3 0.0 - 1.6 % 07/07/2025 10:29 AM [facility] Immature Granulocytes % 0.4 0.0 - 1.0 % 07/07/2025 10:29 AM [facility] Neutrophil Absolute 5.91 1.60 - 7.50 x10E9/L 07/07/2025 10:29 AM CDT [facility] Lymphocyte Absolute 0.56(L) 1.00 - 4.40 x10E9/L 07/07/2025 10:29 AM CDT [facility] Monocyte Absolute 0.31 0.15 - 1.00 x10E9/L 07/07/2025 10:29 AM CDT [facility] Eosinophil Absolute 0.11 0.00 - 0.60 x10E9/L 07/07/2025 10:29 AM CDT [facility] Basophil Absolute 0.02 0.00 - 0.13 x10E9/L 07/07/2025 10:29 AM CDT [facility] Blood BLOOD SPECIMEN / Unknown Venipuncture / Unknown 07/07/2025 10:17 AM CDT 07/07/2025 10:22 AM CDT Marco Narvaez MD LAB - HEMATOLOGY ORDERABLES Shayla l Result Performing Organization Address City/[facility]/ZIP Co de Phone Number [facility] [address] [place] [address], [facility] [phone] * CULTURE BLOOD (07/07/2025 9:54 AM CDT) Culture No growth day 5 JIMBO 07/12/2025 2:01 PM CDT [facility] Blood PERIPHERAL BLOOD / Unknown Venipuncture / Unknown 07/07/2025 9:54 AM CDT 07/07/2025 9:56 AM CDT Mraco Narvaez MD LAB - MICROBIOLOGY ORDERABLES Fi nal Result [facility] [address] [place] [address], [facility] [phone] * (ABNORMAL) LEVETIRACETAM LEVEL (07/07/2025 9:52 AM CDT) Levetiracetam <2.0(L) 10.0 - 40.0 ug/mL 07/08/2025 7:01 PM CDT [facility] ([facility]) Comment: INTERPRETIVE INFORMATION: Keppra (Levetiracetam) Therapeutic Range: 10-40 ug/mL Toxic: Not well Established Pharmacokinetics of levetiracetam are affected by renal function. Adverse effects may include somnolence, weakness, headache and vomiting. This levetiracetam (Keppra) immunoassay uses the [employer] reagents, which has known cross-reactivity with the drug brivaracetam (Briviact) and may report inaccurate results. Patients transitioning from levetiracetam to brivaracetam or those who are using both medications should not monitor drug concentrations with the [employer] assay. These patients should be monitored using a validated chromatographic methodology that distinguishes between drugs to determine drug concentrations. Performed By: [facility] [email or web address] [address] [place] [address] [employer]: Eliseo Pimentel MD, PhD CLIA Number: [id number] Blood BLOOD SPECIMEN / Unknown Venipuncture / Unknown 07/07/2025 9:52 AM CDT 07/07/2025 9:57 AM CDT Marco Narvaez MD LAB - THERAPEUTIC DRUG MONITORIN G ORDERABLES Final Result [facility] ([facility]) [address] [place] [address] * PT-INR (07/07/2025 9:52 AM CDT) PT 12.9 12.1 - 14.8 Seconds 07/07/2025 10:27 AM CDT [facility] INR 1.0 See Comment 07/07/2025 10:27 AM CDT [facility] Comment:The suggested therap eutic range for standard coumadin (warfarin) therapy is an INR of 2.0-3.0. For high-risk patients (Mechanical Mitral Valve Prosthesis, etc.), the suggested prophylactic therapeutic range is an INR of 2.5-3.5. Blood BLOOD SPECIMEN / Unknown Venipuncture / Unknown 07/07/2025 9:52 AM CDT 07/07/2025 9:56 AM CDT Marco Narvaez MD LAB - COAGULATION ORDERABLES Fin al Result Performing Organization Address [facility] Co de Phone Number [address] [address], [facility] [phone] * (ABNORMAL) B-TYPE NATRIURETIC PEPTIDE (07/07/2025 9:52 AM CDT) BNP 771(H) <100 pg/mL 07/07/2025 10:36 AM CDT [facility] Comment: A decision threshold of 100 [...] CHEMISTRY ORDERABLES Final Result Performing Organization Address [facility] Co de Phone Number [address] [address], [facility] [phone] * TROPONIN-I HIGH SENSITIVE BASELINE + 1HR (07/07/2025 9:43 AM CDT) Troponin I High Sensitive 13 <=35 ng/L 07/07/2025 10:35 AM CDT [facility] Blood BLOOD SPECIMEN / Unknown Venipuncture / Unknown 07/07/2025 9:43 AM CDT 07/07/2025 9:49 AM CDT us Marco Narvaez MD LAB - CHEMISTRY ORDERABLES Final Result Performing Organization Address [facility]/ZIP Co de Phone Number [address] [place] [address], [facility] [phone] * TSH REFLEX FREE T4 (07/07/2025 9:43 AM CDT) Pathologist [facility] TSH 0.520 0.350 - 4.940 uIU/mL 07/07/2025 10:35 AM [facility] Blood BLOOD SPECIMEN / Unknown Venipuncture / Unknown 07/07/2025 9:43 AM CDT 07/07/2025 9:49 AM CDT Marco Narvaez MD LAB - CHEMISTRY ORDERABLES Final Result [address] [address], [facility] [phone] * (ABNORMAL) COMPREHENSIVE METABOLIC PANEL (07/07/2025 9:43 AM CDT) [facility] BUN 29(H) 7 - 26 mg/dL 07/07/2025 10:22 AM [facility] Creatinine 4.59(H) 0.71 - 1.16 mg/dL 07/07/2025 10:22 AM [facility] Sodium 138 136 - 145 mmol/L 07/07/2025 10:22 AM [facility] Potassium 4.0 3.5 - 4.5 mmol/L 07/07/2025 10:22 AM [facility] Chloride 104 98 - 107 mmol/L 07/07/2025 10:22 AM [facility] CO2 25 22 - 29 mmol/L 07/07/2025 10:22 AM [facility] Glucose 162(H) 70 - 99 mg/dL 07/07/2025 10:22 AM [facility] Calcium 7.8(L) 8.4 - 10.2 mg/dL 07/07/2025 10:22 AM [facility] Protein Total 6.2 6.0 - 8.3 g/dL 07/07/2025 10:22 AM [facility] Albumin 3.5 3.4 - 5.0 g/dL 07/07/2025 10:22 AM [facility] Bilirubin Total 0.5 0.2 - 1.2 mg/dL 07/07/2025 10:22 AM [facility] Alkaline Phosphatase 76 40 - 150 U/L 07/07/2025 10:22 AM [facility] ALT 8 5 - 55 U/L 07/07/2025 10:22 AM [facility] AST 15 5 - 34 U/L 07/07/2025 10:22 AM [facility] Anion Gap 9 6 - 16 07/07/2025 10:22 AM [facility] BUN/Creatinine Ratio 6(L) 7 - 23 07/07/2025 10:22 AM [facility] Osmolality Calculated 295 275 - 295 mOsm/kg 07/07/2025 10:22 AM [facility] Albumin/Globulin Ratio 1.3 1.1 - 2.3 07/07/2025 10:22 AM [facility] eGFR by CKD-EPI 13(L) >=90 mL/min/1.7 3 m2 07/07/2025 10:22 AM [facility] Comment:Estimated Glomerular Filtration Rate (eGFR) calculated using the CKD-EPI Creatinine Equation (2020), per the National Kidney Foundation and [place] Society of Neph[employer] recommendations. Blood BLOOD SPECIMEN / Unknown Venipuncture / Unknown 07/07/2025 9:43 AM CDT 07/07/2025 9:49 AM CDT Marco Narvaez MD LAB - CHEMISTRY ORDERABLES Final Result [facility] [address] [place] [address], [facility] [phone] * MAGNESIUM BLOOD (07/07/2025 9:43 AM CDT) Magnesium 1.9 1.6 - 2.6 mg/dL 07/07/2025 10:22 AM [facility] Blood BLOOD SPECIMEN / Unknown Venipuncture / Unknown 07/07/2025 9:43 AM CDT 07/07/2025 9:49 AM CDT Marco Narvaez MD LAB - CHEMISTRY ORDERABLES Final Result Performing Organization Address City/[facility]/ZIP Co de Phone Number [address] [address], [facility] [phone] * LIPASE BLOOD (07/07/2025 9:43 AM CDT) Lipase 28 8 - 78 U/L 07/07/2025 10:22 AM CDT [facility] Blood BLOOD SPECIMEN / Unknown Venipuncture / Unknown 07/07/2025 9:43 AM CDT 07/07/2025 9:49 AM CDT Narrative [facility] - 07/07/2025 10:22 AM CDT Lipase results from the [employer] Alinity analyzer may not be comparable with other methodologies. Marco Narvaez MD LAB - CHEMISTRY ORDERABLES Final Result Performing Organization Address [facility] Co de Phone Number [address] [address], [facility] [phone] * (ABNORMAL) HEMOGLOBIN A1C (04/26/2025 7:59 AM CDT) Hemoglobin A1c 8.6(H) <=5.6 % 04/26/2025 10:14 AM T [facility] Estimated Average Glucose 200 mg/dL 04/26/2025 10:14 AM T [facility] Comment: HbA1c Interpretation: Normal : < 5.7% Pre-diabetes: 5.7-6.4% Diabetes: Equal to or greater than 6.5% Test results diagnostic of diabetes should be repeated for confirmation. Treatment target values recommended by ADA and other clinical organizations should be used to evaluate metabolic control in patients. Reference: [place] Diabetes Association, Standards of Care in Diabetes [...] LAB - CHEMISTRY ORDERABLES Fin al Result [facility] [address] [place] [address], [facility] [phone] from Last 3 Months or Most Recently Relevant to Health Maintenance Advance Directives * Full Code (Latest Code Status on File) Date Activated Date Inactivated Comments 04/26/2025 5:55 AM 05/05/2025 8:32 PM Care Teams Floriculture Professor Relationship Specialty Start Date End Date Pee Decker MD [address] [address] PCP - General Internal Medicine 07/09/25
[2025-09-17 22:09] VITALS: BP 194/65; PULSE 64; RESP 17; TEMP 36.4; O2SAT 98
[2025-09-17] MEDS: HYDROcodone/acetaminophen (*CRX) 5-325 MG TABLET 1 TAB PO (22:15)
[2025-09-17 22:38] VITALS: BP 179/53; PULSE 62; RESP 18; TEMP 36.3; O2SAT 100
--- NOTE | 2025-09-17 22:42 | PC.NURSE ---
Report to [facility] transport team members
== END 2025-09-17 22:48 ==
PROVIDERS: Emergency Provider Emergency Medicine; PCP Internal Medicine
DX: R07.89 Other chest pain (principal); F03.90 Unspecified dementia, unspecified severity, without behavioral disturbance, psychotic disturbance, mood disturbance, and anxiety; E11.22 Type 2 diabetes mellitus with diabetic chronic kidney disease; I12.0 Hypertensive chronic kidney disease with stage 5 chronic kidney disease or end stage renal disease; N18.6 End stage renal disease; E78.5 Hyperlipidemia, unspecified; W01.0XXA Fall on same level from slipping, tripping and stumbling without subsequent striking against object, initial encounter; K57.90 Diverticulosis of intestine, part unspecified, without perforation or abscess without bleeding; N40.0 Benign prostatic hyperplasia without lower urinary tract symptoms
CPT/HCPCS: 36415; 70450; 71260; 72125; 74177; 80053; 85025; 99284; A9270; Q9967